=== PATIENT | male | born 1945 | race Hispanic/Latino ===

== ENCOUNTER 2018-01-19 09:02 | Inpatient (IN) | payer MEDICARE, OTHER ==
[2018-01-19 09:02] VITALS: BMI 28.8
[2018-01-19] MEDS ORDERED: Albuterol-Ipratrop 3 mg / 0.5 (3 ml) UD IH STA (09:42)
--- NOTE | 2018-01-19 09:43 | ED PDOC ---
Arrival/HPI - General Chief Complaint: Weakness/Neurological Deficit Time Seen by Provider: 01/19/18 09:20 Historian: Caregiver - Critical Care Critical Care Minutes: Other (35 minutes) - History of Present Illness Narrative History of Present Illness (Text): A 72 y/o M w/ h/o COPD, multiple sclerosis, and dementia, who is brought in by EMS and accompanied by trench pipe layer helper presenting to the emergency department for shortness of breath and body stiffness. Per his trench pipe layer helper, the patient has been unable to keep down food/liquids for the past 2 days. Four days ago, patient has remained stiff. He is unable to ambulate, not being able to get up without assistance and has had darker urine. Patient was seen by PMD, who instructed to wait for physical therapist to patient, however they are uncertain when therapist will see patient without medical clearance. The patient's PMD stated patient should be seen by a neurologist in the hospital. The trench pipe layer helper he received a call from patient's at approximately 02:30 that patient had began experiencing shortness of breath and wheezing with no alleviation in symptoms after 2 nebulizer treatments. Of note, patient was discharged from hospital last week. PMD: Dr. Jasmin Dominique Time/Duration: Prior to Arrival Symptom Course: Worsening Quality: Unable to Describe Severity Level: Moderate Activities at Onset: Emotional Upset Context: Home Past Medical History - Provider Review Nursing Documentation Reviewed: Yes - Travel History Have you recently traveled outside [place] w/in the past 3 mons?: No - Infectious Disease Hx of Infectious Diseases: None - Cardiac Hx Cardiac Disorders: No - Pulmonary Hx Chronic Obstructive Pulmonary Disease (COPD): Yes - Neurological Hx Neurological Disorder: Yes Hx Alzheimer's Disease: Yes Hx Multiple Sclerosis: Yes Other/Comment: multiple sclerosis - HEENT Hx HEENT Disorder: No - Renal Hx Renal Disorder: No - Endocrine/Metabolic Hx Endocrine Disorders: No - Hematological/Oncological Hx Blood Disorders: No - Integumentary Hx Dermatological Disorder: No - Musculoskeletal/Rheumatological Hx Musculoskeletal Disorders: No Hx Falls: No - Gastrointestinal Hx Gastrointestinal Disorders: No - Psychiatric Hx Psychophysiologic Disorder: No Hx Substance Use: No - Anesthesia Hx Anesthesia: No Hx Anesthesia Reactions: No Hx Malignant Hyperthermia: No Family/Social History - Physician Review Nursing Documentation Reviewed: Yes Family/Social History: No Known Family HX Smoking Status: Unknown If Ever Smoked Hx Alcohol Use: No Hx Substance Use: No Allergies/Home Meds Allergies/Adverse Reactions: Allergies No Known Allergies Allergy (Verified 01/19/18 19:14) Home Medications: Home Meds Medication Instructions Recorded Confirmed RX: Dalfampridine [Ampyra] 10 mg PO BID 02/12/16 01/19/18 RX: Donepezil [Aricept] 10 mg PO QPM 02/12/16 01/19/18 RX: Albuterol Sulfate [Proair Hfa] 0.09 mg IH PRN PRN 10/21/16 01/19/18 RX: Fingolimod HCl [Gilenya] 0.5 mg PO QAM 10/21/16 01/19/18 RX: Multivitamin/Iron/Folic Acid 1 tab PO DAILY 10/21/16 01/19/18 [Centrum Complete Multivit Tab] Albuterol/Ipratropium [Duoneb 3 1 vial IH PRN PRN 01/19/18 01/19/18 mg/0.5 mg (3 ml) UD] Review of Systems - Physician Review All systems were reviewed & negative as marked: Yes - Review of Systems Respiratory: SOB, Wheezing Gastrointestinal: Appetite Changes (patient has been unable to keep down food/liquids) Neurological: Other (patient is stiff, unable to ambulate or make any movement with experiencing pain.) Physical Exam Vital Signs Reviewed: Yes Vital Signs Temp Pulse Resp BP Pulse Ox 01/19/18 09:20 100 F H 96 H 18 102/57 L 90 L Temperature: Febrile Blood Pressure: Normal Pulse: Regular Respiratory Rate: Normal Appearance: Positive for: Uncomfortable (stiff, body contracted to the left- side.) Pain Distress: None Mental Status: Positive for: other (demented) - Systems Exam Respiratory/Chest: Present: Rales (bibasilar rales), Rhonchi (bilaterally). No: Wheezes Lower Extremity: Present: Other (LEs contracted towards the left side) Neurological: Present: GCS=15, CN II-XII Intact, Other (body adrienne towards the left-side). No: Speech Normal (patient non-verbal at this time.) Skin: Present: Warm, Dry, Normal Color. No: Rashes Psychiatric: Present: Alert, Other (demented) Medical Decision Making ED Course and Treatment: 01/19/18 09:44 Impression: 72 year old male with shortness of breath and body-stiffness. Physical exam shows patient is demented and non-verbal at this time; body contracted towards the left-side; rhonchi bilaterally with no wheezing, bibasilar rales. Plan: -- Chest CT -- CXR --CTH -- Labs -- Blood Culture -- Duoneb -- Venous Blood Gas -- Reassess and disposition Prior Visits: Notes and results from previous visits were reviewed. Patient was last seen in the emergency department on 01/05/2018 for shortness of breath. Patient was admitted for COPD exacerbation. Progress Notes: 01/19/18 10:49 Code sepsis called at this time. Zosyn and vancomycin ordered at this time. 01/19/18 10:[address] ordered[address] Spoke to Dr. Contreras(PCP) who requests patient to be started on Maxipime instead of Zosyn. Antibiotic changed. 01/19/18 11:15 VBG reviewed with CO2: 38 & pH: 7.41. Patient stable on non-rebreather. Pending CTH, CT a/p results. 01/19/18 12:[address] Gabriel(supervisor sintering plant) who requests patient to be on hi-mikaela nasal cannula on 650-60LPM. Patient admitted to ICU. - Lab Interpretations I have reviewed the lab results: Yes - RAD Interpretation Narrative RAD Interpretations (Text): 01/19/2018 12:[address] FINDINGS: HEMORRHAGE: No intracranial hemorrhage. BRAIN: No mass effect or edema. There is severe atrophy. Chronic microvascular changes in the periventricular white matter VENTRICLES: Unremarkable. No hydrocephalus. CALVARIUM: Unremarkable. PARANASAL SINUSES: Unremarkable as visualized. No significant inflammatory changes. MASTOID AIR CELLS: Unremarkable as visualized. No inflammatory changes. OTHER FINDINGS: None. IMPRESSION: Severe atrophy. No acute findings Dictator: Remberto Brantley MD 01/19/2018 13:[address] FINDINGS: LUNGS: There is a posterior right upper lobe lung mass adjacent to the spine measuring 2.6 x 4.3 cm. There is invasion of the T3 vertebral body and extension into the neural foramen with epidural invasion of the right side of the spinal canal. MEDIASTINUM: Unremarkable thoracic aorta. No aneurysm. Normal sized heart. Main pulmonary artery unremarkable. No vascular congestion. No lymphadenopathy. PLEURA: No pleural fluid. No pneumothorax. BONES: In addition to the bony involvement of the T3 vertebral body there is a lytic lesion in the right proximal 12th rib UPPER ABDOMEN: Grossly unremarkable. IMPRESSION: Right upper lobe lung mass with invasion of the spinal canal. There is also evidence of bony metastatic disease with a lytic lesion in the 12th rib proximally on the right. Findings consistent with metastatic lung carcinoma. Dictator: Remberto Brantley MD 01/19/2018 13:20 Chest X-ray IMPRESSION: No active disease. Stable findings compared to the prior chest radiograph. Findings apparent on recent CT referable right upper lobe however are not visible. Dictator: Gregory Pozo MD - Scribe Statement The provider has reviewed the documentation as recorded by the Scribe Roman Cruz Provider Scribe Attestation: All medical record entries made by the Scribe were at my direction and personally dictated by me. I have reviewed the chart and agree that the record accurately reflects my personal performance of the history, physical exam, medical decision making, and the department course for this patient. I have also personally directed, reviewed, and agree with the discharge instructions and disposition. Disposition/Present on Arrival - Present on Arrival Any Indicators Present on Arrival: No History of DVT/PE: No History of Uncontrolled Diabetes: No Urinary Catheter: No History of Decub. Ulcer: No History Surgical Site Infection Following: None - Disposition Have Diagnosis and Disposition been Completed?: Yes Diagnosis: COPD exacerbation Disposition: HOSPITALIZED Disposition Time: 12:16 Patient Plan: ICU Condition: FAIR
[2018-01-19 10:08] LABS: VENOUS BLOOD GAS PO2 69 mm/Hg (30-55); VENOUS BLOOD PH 7.38 (7.32-7.43)
[2018-01-19 10:10] LABS: URINE BILIRUBIN NEGATIVE (NEGATIVE); URINE BLOOD NEGATIVE (NEGATIVE); URINE GLUCOSE (UA) NEGATIVE (NEGATIVE); URINE LEUKOCYTE ESTERASE NEGATIVE Leu/uL (NEGATIVE); URINE PROTEIN 30 mg/dL (<30 mg/dL); URINE UROBILINOGEN 0.2 E.U./dL (<1 E.U./dL)
[2018-01-19 10:21] LABS: EOS % 0.2 % (1.5-5.0); GRAN # 15.73 (1.4-6.5); GRAN % 86.5 % (50.0-68.0); HEMOGLOBIN 13.6 g/dL (14.0-18.0); LYMPH # 1.4 (1.2-3.4); LYMPH % 7.5 % (22.0-35.0); MEAN CELL VOLUME 91.4 fl (80.0-105.0); MEAN CORPUSCULAR HEMOGLOBIN 30.6 pg (25.0-35.0); MEAN CORPUSCULAR HGB CONC 33.5 g/dl (31.0-37.0); MEAN PLATELET VOLUME 10.3 fl (7.0-11.0); MONO # 1.1 (0.1-0.6); MONO % 5.8 % (1.0-6.0); RBC 4.44 10^6/uL (3.5-6.1); RED CELL DISTRIBUTION WIDTH 14.3 % (11.5-14.5); WHITE BLOOD COUNT 18.2 10^3/ul (4.5-11.0)
[2018-01-19 10:23] LABS: URINE APPEARANCE SL CLOUDY (CLEAR); URINE COLOR YELLOW (YELLOW)
[2018-01-19 10:25] LABS: URINE BACTERIA TRACE (NEG); URINE RBC NEGATIVE /hpf (0-2); URINE WBC 0 - 2 /hpf (0-6)
[2018-01-19 10:26] LABS: BLOOD UREA NITROGEN 29 mg/dL (7-21); GFR NON-AFRICAN AMERICAN > 60
[2018-01-19 10:31] LABS: B-TYPE NATRIURETIC PEPTIDE 312 pg/mL (0-450); TROPONIN I < 0.01 ng/mL
[2018-01-19] MEDS ORDERED: Piperacill/Tazo 4.5gm in NS 4.5 GM/100 ML BAG IVPB STA (10:49)
[2018-01-19] MEDS ORDERED: Vancomycin 1gm in NS 250ml 1 GM/250 ML BAG IVPB STA ×2 (10:49→11:07)
[2018-01-19] MEDS ORDERED: Cefepime IV 2 gm in NS 2 GM/100 ML BAG IVPB STA (11:03)
[2018-01-19] MEDS ORDERED: Sodium Chloride 0.9% 1,000 ML IV STA ×2 (11:19→13:05)
[2018-01-19 11:25] LABS: ARTERIAL BLOOD GAS HCO3 24.1 mmol/L (21-28); ARTERIAL BLOOD GAS HEMOGLOBIN 13.5 g/dL (11.7-17.4); ARTERIAL BLOOD GAS O2 CAPACITY 18.7 mL/dl (16-24); ARTERIAL BLOOD GAS O2 CONTENT 18.5 ML/dl (15-23); ARTERIAL BLOOD GAS O2 SAT 99.1 % (95-98); ARTERIAL BLOOD GAS PCO2 38 mm/Hg (35-45); ARTERIAL BLOOD GAS PH 7.41 (7.35-7.45); ARTERIAL BLOOD GAS TCO2 25.3 mmol.L (22-28)
--- NOTE | 2018-01-19 12:43 | CT ---
Date of service: 01/19/2018 PROCEDURE: CT HEAD WITHOUT CONTRAST. HISTORY: change in ms COMPARISON: 02/12/2016 TECHNIQUE: Axial computed tomography images were obtained through the head/brain without intravenous contrast. Radiation dose: Total exam DLP = 1043 mGy-cm. This CT exam was performed using one or more of the following dose reduction techniques: Automated exposure control, adjustment of the mA and/or kV according to patient size, and/or use of iterative reconstruction technique. FINDINGS: HEMORRHAGE: No intracranial hemorrhage. BRAIN: No mass effect or edema. There is severe atrophy. Chronic microvascular changes in the periventricular white matter VENTRICLES: Unremarkable. No hydrocephalus. CALVARIUM: Unremarkable. PARANASAL SINUSES: Unremarkable as visualized. No significant inflammatory changes. MASTOID AIR CELLS: Unremarkable as visualized. No inflammatory changes. OTHER FINDINGS: None. IMPRESSION: Severe atrophy. No acute findings
[2018-01-19 12:54] LABS: VENOUS BLOOD GAS BASE EXCESS -0.6 mmol/L (0.0-2.0); VENOUS BLOOD GAS PO2 49 mm/Hg (30-55); VENOUS BLOOD PH 7.26 (7.32-7.43)
--- NOTE | 2018-01-19 13:02 | CT ---
Date of service: 01/19/2018 PROCEDURE: CT Chest without contrast HISTORY: cough w/ h/o asphixiation COMPARISON: None available. TECHNIQUE: Contiguous axial images were obtained through the chest without intravenous contrast enhancement. Sagittal and coronal reconstructions were performed. Radiation dose (DLP): 794 mGy-cm. This CT exam was performed using one or more of the following dose reduction techniques: Automated exposure control, adjustment of the mA and/or kV according to patient size, and/or use of iterative reconstruction technique. FINDINGS: LUNGS: There is a posterior right upper lobe lung mass adjacent to the spine measuring 2.6 x 4.3 cm. There is invasion of the T3 vertebral body and extension into the neural foramen with epidural invasion of the right side of the spinal canal. MEDIASTINUM: Unremarkable thoracic aorta. No aneurysm. Normal sized heart. Main pulmonary artery unremarkable. No vascular congestion. No lymphadenopathy. PLEURA: No pleural fluid. No pneumothorax. BONES: In addition to the bony involvement of the T3 vertebral body there is a lytic lesion in the right proximal 12th rib UPPER ABDOMEN: Grossly unremarkable. OTHER FINDINGS: The findings were discussed with Dr. Chu at 1 p.m. IMPRESSION: Right upper lobe lung mass with invasion of the spinal canal. There is also evidence of bony metastatic disease with a lytic lesion in the 12th rib proximally on the right. Findings consistent with metastatic lung carcinoma
--- NOTE | 2018-01-19 13:22 | RAD ---
Date of service: 01/19/2018 HISTORY: coughing w/ h/o asphixia COMPARISON: 01/05/2018. Single-view chest. January 19, 2018 CT thorax FINDINGS: LUNGS: No active pulmonary disease. PLEURA: No significant pleural effusion identified, no pneumothorax apparent. CARDIOVASCULAR: No radiographic findings to suggest acute or significant cardiovascular disease. OSSEOUS STRUCTURES: No significant abnormalities. VISUALIZED UPPER ABDOMEN: Normal. OTHER FINDINGS: None. IMPRESSION: No active disease. Stable findings compared to the prior chest radiograph. Findings apparent on recent CT referable right upper lobe however are not visible.
[2018-01-19] MEDS ORDERED: Dexamethasone 4 mg/1 ml IVP STA (13:45)
[2018-01-19] MEDS ORDERED: Vancomycin 1gm in NS 250ml 1 GM/250 ML BAG IVPB SCH (15:00)
--- NOTE | 2018-01-19 15:06 | PCM.SEPTIC ---
Sepsis Progress Note - Reassessment Type Date of Evaluation: 01/19/18 Time of Evaluation: 15:03 Reassessment Type: Non-invasive reassessment - Non Invasive Reassessment Were the most recent vital sign reviewed: Yes Vital Sign (Latest): Temp Pulse Resp BP Pulse Ox 99.8 F H 76 18 132/66 92 L 01/19/18 14:05 01/19/18 14:05 01/19/18 14:05 01/19/18 14:05 01/19/18 14:05 Cardiovascular: Yes: Regular Rate, Rhythm Respiratory: Yes: Normal Breath Sounds Capillary Refill: Normal (Less than 2 sec) Skin: Normal Color, Warm, Dry
[2018-01-19] MEDS ORDERED: Insulin Reg-MEDIUM-Coverage SC SCH (15:30)
--- NOTE | 2018-01-19 16:36 | CARD ---
APPROVED REPORT Date of service: 01/19/2018 EKG Measurement Heart [id number] <Conclusion> Sinus rhythm with marked sinus arrhythmia Left axis deviation Inferior infarct, age undetermined Abnormal ECG
--- NOTE | 2018-01-19 17:19 | HP ---
DATE OF EXAM: 01/19/2018 HISTORY OF PRESENT ILLNESS: This 72-year-old male was examined in ICU bed 5 in [facility] ICU on afternoon, 01/19/2018. His case was reviewed in detail with family, the patient at bedside, ICU nursing, and Dr. Marcello Sky, line maintainer section. The patient was sent to the [facility] ER earlier today when his noted respiratory distress at home. His past medical history is significant for advanced multiple sclerosis, dementia, COPD and prostate cancer. The patient was having difficulty with shortness of breath and taking oral food and fluids for the past 48 hours and approximately 4 days ago was having difficulty with ambulation at home. The patient was advised and family was advised to come to the ER for further evaluation; however, opted to keep the patient at home while awaiting home physical therapy eval. Today, when the patient was noted to be short of breath and wheezing, his family called for ambulance to transport to the ER where he was complaining of pain with movement of his body, backache, in the absence of any obvious rash or orthopedic injury. The patient on chest x-ray had no remarkable findings. However, on the CT of his chest which was reviewed, done without contrast, he was noted to have a posterior right upper lung mass adjacent to his spine measuring 2.6 x 4.3 cm with invasion of the T3 vertebral body and extension into the neuroforamen with epidural invasion of the right side of his spinal canal. On inspection of his mediastinum on CT, it was unremarkable. There was no aneurysm. His heart was normal in size. There was no vascular congestion and no lymphadenopathy appreciated. The patient is admitted to ICU for pulmonary and respiratory observation and will be scheduled for a CT-guided biopsy of this newly noted lung mass on CT of chest done today. REVIEW OF SYSTEMS: CONSTITUTIONAL: There were no reports of fever or chills. HEENT: Head review: No change in mentation, no headache. No knowledge of stroke. Eyes review: No change in visual acuity. Ears review: No hearing loss. Throat review: No swallowing difficulty. NECK: No stiffness. CARDIAC: No chest pain, no palpitation. PULMONARY: He had cough. No hemoptysis. He did have expiratory wheezing and rhonchi. ABDOMEN: No hematemesis. No melena. : No dysuria. SKIN: No rash. VASCULAR: No reports of claudication. PSYCHOLOGIC: He has chronic dementia. NEUROLOGIC: Advanced multiple sclerosis. ALLERGIES: HE HAS NO KNOWN ALLERGIES TO MEDICATION. OUTPATIENT MEDICATIONS: Included Duo nebulizer inhalational therapy, multivitamin, Gilenya, Aricept, and p.r.n., ProAir. FAMILY HISTORY: Noncontributory. SOCIAL HISTORY: According to his , he has a 90 pack-year history of cigarette smoking. He last smoked in 1998. He is a social drinker, non IV drug misuser, retired tailor. PHYSICAL EXAMINATION: VITAL SIGNS: At present, he was in a normal sinus rhythm on the cardiac technologist with a temperature of 99.8, respirations 18, pulse 76, and blood pressure 132/66 with a pulse ox of 92% on nasal O2. HEENT: Head: Normocephalic, atraumatic. Eyes: No icterus. Ears: Clear. Throat: Noninjected. NECK: Supple. HEART: Regular, S1 and S2. LUNGS: Occasional rhonchi and expiratory wheezing that clear with coughing. ABDOMEN: Soft and nontender. No palpable organomegaly. No rebound, no guarding, no tenderness. EXTREMITIES: No edema. SKIN: Without rash. NEUROLOGIC: He has marked weakness in both lower extremities. He is able to move his right and left upper extremities voluntarily. He has sensory intact. VASCULAR: Legs warm to touch. PSYCHOLOGIC: Alert. LABORATORY DATA: White count 18,200, hemoglobin 13.6, hematocrit 40.6, and platelets 169,000. Blood gas pH 7.41, pCO2 of 38, pO2 of 111, bicarb 24 on 100% FiO2. Chemistry: Sodium 141, K 3.7, chloride 106, bicarb 26. BUN 29, creatinine 0.8. Random blood sugar 141. Lactic acid level 1.8, normal. Calcium 9. Magnesium 2. Troponin less than 0.01. BNP 312. Urinalysis showed trace bacteria, specific gravity 1.030, 30 mg/dL of protein, no red blood cell, 0 to 2 rbc. Chest x-ray was reviewed. It showed no active pulmonary disease, no infiltrate, no effusion, no pneumothorax, no congestive heart failure. Head CT was reviewed. It showed severe atrophy, no obvious stroke. No hemorrhage, no infarct, no acute findings. CT of the chest as outlined in HPI. IMPRESSION: A 72-year-old male with [id number] chronic obstructive pulmonary disease, now with newly noted right upper lung posterior lung mass invading into T3 vertebral body causing neurological findings of lower extremity weakness and also comorbidities of leukocytosis, hypoxemia, mild clinical dehydration, hyperglycemia, history of multiple sclerosis, degenerative arthritis, organic brain syndrome, and dementia. PLAN: The plans at present are to maintain this patient in critical care where he will have close monitoring of his respiratory status. He remains a full code and is to be intubated if any respiratory embarrassment should occur. He is scheduled to receive Aricept 10 mg p.o. at bedtime, Duo nebulizer inhalational therapy every 6 hours, heparin 5000 units subcu every 8 hours, regular R medium insulin coverage before meals and at bedtime, Maxipime 1 g IV every 8 hours, vancomycin 1 g IV every 12 hours, Protonix 40 mg IV daily, Solu-Medrol 60 mg IV every 8 hours. The patient is scheduled for blood, urine, and MRSA screens. A procalcitonin serum level has been ordered. He is ordered to have high-flow nasal O2 and consultations with Dr. Dominick Hernandez from Oncology, Dr. Kristi Murrell from Radiation Oncology, Dr. Miguel De La Cruz from Interventional Radiology, and Dr. Martin Pedroza from neurosurgery have been ordered. All of the above was discussed in detail with the patient's , Silvina Be and Dr. Sky. All of the above was reviewed in detail with them. Greater than 75 minutes was spent in the care of this patient today. All questions were answered. Jasmin Dominique MD MTDMartita
[2018-01-19] MEDS ORDERED: Influenza Vaccine 60 mcg/0.5 mL SYR (4YR UP) IM ONE (19:45)
[2018-01-19] MEDS ORDERED: Pneumococcal 23-Valent Vaccine IM ONE (19:45)
[2018-01-19] MEDS: Albuterol-Ipratrop 3 mg / 0.5 (3 ml) UD IH SCH (20:03)
[2018-01-19 20:18] LABS: VENOUS BLOOD GAS BASE EXCESS -0.8 mmol/L (0.0-2.0); VENOUS BLOOD GAS PO2 86 mm/Hg (30-55); VENOUS BLOOD PH 7.34 (7.32-7.43)
--- NOTE | 2018-01-19 21:30 | CON ---
DATE: 01/19/2018 HISTORY OF PRESENT ILLNESS: The patient is seen and examined at bedside. He is 72-year-old gentleman with history of dementia, multiple sclerosis, COPD who presented to [facility] emergency room for shortness of breath and body stiffness. Of note, the patient was unable to walk night prior and that was acute change in his overall status. He was also reported being very stiff. The patient started to experience shortness of breath and wheezing around 02:30 a.m. and around 6 in the morning, the patient received two albuterol nebulizers without any relief whatsoever. No fever, no chills, no sweats, no nausea, no vomiting, no diarrhea, no constipation. In the emergency room, CT chest was done, which revealed right upper lobe mass intruding into the spinal canal and few pulmonary nodules suspicious for metastatic lung adenocarcinoma. The patient was also found to be hypoxemic, requiring 70% of FiO2 to maintain oxygen saturation more than 92%. PAST MEDICAL HISTORY: Dementia, multiple sclerosis, COPD. ALLERGIES: NKDA. MEDICATION AT HOME: DuoNeb, Gilenya, Aricept, Ampyra, multivitamin, albuterol. FAMILY HISTORY: Noncontributory. SOCIAL HISTORY: No alcohol or illicit drug abuse. No tobacco smoking. REVIEW OF SYSTEMS: Review of 12-organ system other than mentioned in history of present illness is negative. PHYSICAL EXAMINATION: VITAL SIGNS: Temperature 99.8, heart rate 76, blood pressure 132/66, respiratory rate 18, oxygen saturation 92% on high-flow with 75% FiO2 and oxygen flow rate 50 liters per minute. ENT: Head and neck: Atraumatic. LUNGS: Few wheezes bilaterally. HEART: Regular rate and rhythm. S1, S2 normal. ABDOMEN: Soft, nontender, nondistended. MUSCULOSKELETAL: Contractures in the upper and lower extremities. SKIN: Moist. PSYCH: The patient is poorly communicative. LABORATORY DATA: WBC 18.2, hemoglobin 13.6, platelet count 169. Sodium 141, potassium 3.7, chloride 106, carbon dioxide 26, BUN 29, creatinine 0.8, lactic acid 1.8, glucose 141. Troponin less than 0.01, calcium 9. ABG showed 7.41/38/111 on 100% FiO2. Lactic acid 3.5 up from 2.3. Urine negative for leukocyte esterase and nitrites. Head CT showed severe atrophy, but no acute intracranial pathology. Chest CT showed right upper lobe lung mass with invasion of the spinal canal. There is also evidence of bony metastatic disease with a lytic lesion in the 12th rib approximally on the right. Findings consistent with metastatic lung adenocarcinoma. No substantial lymphadenopathy. ASSESSMENT AND PLAN: This is 72-year-old gentleman with hypoxemic respiratory failure requiring high FiO2 supplementation who was found to have chest imaging highly suspicious for metastatic lung adenocarcinoma with biggest concern being right upper lobe mass intruding into the spinal canal, which may potentially explain his acute neurological deficit. There is a questionable ground-glass tree-in-bud nodules in the left lower lobe intermingled with areas of questionable consolidation, which however per se unlikely to explain hypoxemic respiratory failure. At present time, we will proceed with stat Decadron and continuation with IV corticosteroids. We will get Hematology/Oncology service on board. Neurosurgery on board and get IR to obtain tissue specimen. Once diagnosis of malignancy is confirmed, we will get in touch with radiation oncologist in consideration of radiating a mass impinging into the spinal canal, while waiting for insight from neurosurgical service as well. We will continue with antibiotics. Conservative fluid management. Inhaled corticosteroids and bronchodilators. We will get echocardiogram, ProBNP, troponin x3. Accu-Chek every 4 hours. We will continue with deep vein thrombosis, gastrointestinal prophylaxis. Low threshold for intubation. ICU admission. ccm time 40 min Marcello Sky MD AMJO
[2018-01-19] MEDS: Vancomycin 1gm in NS 250ml 1 GM/250 ML BAG IVPB SCH (21:36)
[2018-01-19] MEDS: Insulin Reg-MEDIUM-Coverage SC SCH (21:39)
[2018-01-19] MEDS: Cefepime 1gm in NS 100ml 1 GM/100 ML BAG IVPB SCH (22:10)
[2018-01-20] MEDS: Insulin Reg-MEDIUM-Coverage SC SCH ×6 (02:00→21:55)
[2018-01-20] MEDS: Albuterol-Ipratrop 3 mg / 0.5 (3 ml) UD IH SCH (03:24)
[2018-01-20] MEDS: Sodium Chloride 0.9% 1,000 ML IV SCH ×3 (04:45→22:00)
[2018-01-20] MEDS: Cefepime 1gm in NS 100ml 1 GM/100 ML BAG IVPB SCH ×3 (06:41→23:00)
[2018-01-20 07:27] LABS: HEMOGLOBIN 12.6 g/dL (14.0-18.0); MEAN CELL VOLUME 91.9 fl (80.0-105.0); MEAN CORPUSCULAR HEMOGLOBIN 30.9 pg (25.0-35.0); MEAN CORPUSCULAR HGB CONC 33.6 g/dl (31.0-37.0); RBC 4.08 10^6/uL (3.5-6.1); RED CELL DISTRIBUTION WIDTH 14.2 % (11.5-14.5); WHITE BLOOD COUNT 13.5 10^3/ul (4.5-11.0)
[2018-01-20 07:38] LABS: ALBUMIN 2.7 g/dL (3.0-4.8); ALT/SGPT 38 U/L (7-56); AST/SGOT 24 U/L (17-59); BLOOD UREA NITROGEN 30 mg/dL (7-21); CALCIUM 8.4 mg/dL (8.4-10.5); GFR NON-AFRICAN AMERICAN > 60
--- NOTE | 2018-01-20 08:55 | CON ---
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 The patient has an underlying multiple sclerosis and dementia, was admitted for pains as well as shortness of breath, possible sepsis. His CAT scan shows right upper lobe mass, 4.3 cm that is invading locally to T3 vertebra and he also has a twelfth rib lytic lesion on his CAT scan. The patient is not very verbal. He is essentially better in the ICU. He is lying flat. He is alert, but does not really converse. PHYSICAL EXAMINATION: SKIN: No petechiae, no bruises. HEENT: Anicteric. NODES: None palpable in the axillary, cervical, supraclavicular or inguinal regions. LUNGS: Show some diffuse rhonchi, scattered wheeze. HEART: S1 and S2. ABDOMEN: Shows no liver, no spleen, no tenderness. EXTREMITIES: No edema. COSMETOLOGIST APPRENTICE: Downgoing bilaterally plantars. ASSESSMENT: At this point, he has radiologic diagnosis of lung cancer metastatic to the bones and being treated for sepsis. I agree with the steroids to try to protect the spinal cord. He is scheduled to get a CAT scan guided biopsy. At that point, once we have a diagnosis of cancer, he can be treated with radiation therapy. Then, we would await final reports on the pathology. Hopefully, we will have enough to send for markers for for epidermal growth factor receptor, reactive oxygen species and anaplastic lymphoma kinase markers in order to see if it is possible to treat him with some of the new agents. In any event, at first he will need radiation therapy. Dominick Hernandez MD
--- NOTE | 2018-01-20 09:59 | CP.CCUPN ---
Addendum entered and electronically signed by Yi Snyder DO 01/20/18 12:37: Heme/Onc: As per Dr. Hernandez, patient will have CT guided biopsy of likely primary lung lesion. EGFR, anaplastic lymphoma kinase markers, and ROS species to be collected to guide therapy. As per Dr. Murrell, patient has had paralysis for 5 days and surgical decompression would not help the patient at this time. He will be referred for palliative radiation. Original Note: <Yi Snyder - Last Filed: 01/20/18 11:55> CCU Subjective - Physician Review Subjective (Free Text): Yi Snyder, PGY-1, CCU Progress Note for Dr. Doan Patient seen and examined at bedside. Patient is AAOx1. Patient is unable to respond coherently to questions which is his baseline. 12-point ROS was unattainable due to patient's mental status. Critical Care Time Spent (in minutes): 60 CCU Objective - Vital Signs / Intake & Output Vital Signs (Last 4 hours): Vital Signs Pulse Resp 01/20/18 07:47 20 01/20/18 06:00 64 Intake and Output (Last 8hrs): Intake & Output 01/19/18 01/20/18 01/20/18 22:59 06:59 14:59 Intake Total 2300 1450 Output Total 380 Balance 2300 1070 Weight 190 lb 184 lb 9.6 oz Intake: IV 2300 1450 Right Antecubital 2300 1450 Output: Urine 380 Urine, Voided 380 Stool 0 Other: Voiding Method Incontinent - Physical Exam Head: Positive for: Atraumatic, Normocephalic Pupils: Positive for: PERRL Extroacular Muscles: Positive for: EOMI Conjunctiva: Positive for: Normal Respiratory/Chest: Positive for: Rales (bibasilar rales), Rhonchi (bilaterally). Negative for: Wheezes Cardiovascular: Positive for: Regular Rate and Rhythm, Murmurs Abdomen: Positive for: Normal Bowel Sounds. Negative for: Tenderness, Distention Upper Extremity: Positive for: Normal Inspection, NORMAL PULSES Lower Extremity: Positive for: Normal Inspection, NORMAL PULSES Neurological: Positive for: CN II-XII Intact, Other (body adrienne towards the left-side). Negative for: GCS=15 (14), Speech Normal (patient non-verbal at this time.) Skin: Positive for: Warm, Dry, Normal Color. Negative for: Rashes Psychiatric: Positive for: Other (demented). Negative for: Alert, Oriented x 3 - Medications Active Medications: Active Medications Generic Name Dose Route Start Last Admin Trade Name Freq PRN Reason Stop Dose Admin Donepezil HCl 10 mg 01/19/18 22:00 01/19/18 22:11 Aricept PO Not Given HS LOWELL Heparin Sodium (Porcine) 5,000 units 01/19/18 15:15 01/20/18 07:30 Heparin SC Not Given Q8H LOWELL Protocol Cefepime HCl 1 gm in 100 mls @ 100 mls/hr 01/19/18 22:00 01/20/18 06:41 Maxipime 1gm IVPB 100 mls/hr Q8 LOWELL Administration Protocol Vancomycin HCl 1 gm in 250 mls @ 167 mls/hr 01/19/18 22:00 01/19/18 21:36 Vancomycin 1gm IVPB 167 mls/hr Q12H LOWELL Administration Protocol Sodium Chloride 1,000 mls @ 100 mls/hr 01/19/18 15:45 01/20/18 04:45 Sodium Chloride 0.9% IV 100 mls/hr .Q10H LOWELL Administration Insulin Human Regular 0 units 01/19/18 17:33 01/20/18 06:42 Humulin R Med SC Not Given Q4H LOWELL Protocol Methylprednisolone 60 mg 01/19/18 15:00 01/20/18 06:40 Solu-Medrol IVP 60 mg Q8H LOWELL Administration Pantoprazole Sodium 40 mg 01/19/18 15:15 01/19/18 17:30 Protonix Inj IVP 40 mg DAILY LOWELL Administration - Patient Studies Lab Studies: Lab Studies 01/20/18 01/20/18 01/19/18 Range/Units 07:10 07:10 20:12 WBC 13.5 H D (4.5-11.0) 10^3/ul RBC 4.08 (3.5-6.1) 10^6/uL Hgb 12.6 L (14.0-18.0) g/dL Hct 37.5 L (42.0-52.0) % MCV 91.9 (80.0-105.0) fl MCH 30.9 (25.0-35.0) pg MCHC 33.6 (31.0-37.0) g/dl RDW 14.2 (11.5-14.5) % Plt Count 151 (120.0-450.0) 10^3/uL MPV 10.0 (7.0-11.0) fl Gran % (50.0-68.0) % Lymph % (Auto) (22.0-35.0) % Anson % (Auto) (1.0-6.0) % Eos % (Auto) (1.5-5.0) % Baso % (Auto) (0.0-3.0) % Gran # (1.4-6.5) Lymph # (Auto) (1.2-3.4) Anson # (Auto) (0.1-0.6) Eos # (Auto) (0.0-0.7) Baso # (Auto) (0.0-2.0) K/mm3 pCO2 (35-45) mm/Hg pO2 86 H (30-55) mm/Hg HCO3 (21-28) mmol/L ABG pH (7.35-7.45) ABG Total CO2 (22-28) mmol.L ABG O2 Saturation (95-98) % ABG O2 Content (15-23) ML/dl ABG Base Excess (-2.0-3.0) mmol/L ABG Hemoglobin (11.7-17.4) g/dL ABG Carboxyhemoglobin (0.5-1.5) % POC ABG HHb (Measured) (0-5) % ABG Methemoglobin (0.0-3.0) % ABG O2 Capacity (16-24) mL/dl VBG pH 7.34 (7.32-7.43) VBG pCO2 47.0 (40-60) VBG HCO3 25.4 (21-28) mmol/l VBG Total CO2 26.8 (22-28) mmol.L VBG O2 Sat (Calc) 97.6 H (40-65) % VBG Base Excess -0.8 L (0.0-2.0) mmol/L VBG Potassium 4.1 (3.6-5.2) mmol/L Hgb O2 Saturation (95.0-98.0) % Sodium 146 141.0 (132-148) mmol/L Chloride 111 H 113.0 H (98-107) mmol/L Glucose 173 H (75-110) mg/dl Lactate 1.7 (0.7-2.1) mmol/L FiO2 21.0 % Potassium 4.1 (3.6-5.0) mmol/L Carbon Dioxide 25 (21-33) mmol/L Anion Gap 14 (10-20) BUN 30 H (7-21) mg/dL Creatinine 0.7 L (0.8-1.5) mg/dl Est GFR ( Amer) > 60 Est GFR (Non-Af Amer) > 60 POC Glucose (mg/dL) (65-110) mg/dL Random Glucose 136 H (70-110) mg/dL Lactic Acid (0.7-2.1) mmol/L Calcium 8.4 (8.4-10.5) mg/dL Magnesium (1.7-2.2) mg/dL Total Bilirubin 0.6 (0.2-1.3) mg/dL AST 24 (17-59) U/L ALT 38 (7-56) U/L Alkaline Phosphatase 91 (38-126) U/L Troponin I ng/mL NT-Pro-B Natriuret Pep (0-450) pg/mL Total Protein 5.5 L (5.8-8.3) g/dL Albumin 2.7 L (3.0-4.8) g/dL Globulin 2.8 gm/dL Albumin/Globulin Ratio 1.0 L (1.1-1.8) Venous Blood Potassium 4.1 (3.6-5.2) mmol/L Urine Color (YELLOW) Urine Appearance (CLEAR) Urine pH (4.7-8.0) Ur Specific [place] (1.005-1.035) Urine Protein (<30 mg/dL) mg/dL Urine Glucose (UA) (NEGATIVE) mg/dL Urine Ketones (NEGATIVE) mg/dL Urine Blood (NEGATIVE) Urine Nitrate (NEGATIVE) Urine Bilirubin (NEGATIVE) Urine Urobilinogen (<1 E.U./dL) E.U./dL Ur Leukocyte Esterase (NEGATIVE) Imer/uL Urine RBC (0-2) /hpf Urine WBC (0-6) /hpf Urine Bacteria (NEG) 01/19/18 01/19/1801/19/18 Range/Units 16:21 13:40 12:45 WBC (4.5-11.0) 10^3/ul RBC (3.5-6.1) 10^6/uL Hgb (14.0-18.0) g/dL Hct (42.0-52.0) % MCV (80.0-105.0) fl MCH (25.0-35.0) pg MCHC (31.0-37.0) g/dl RDW (11.5-14.5) % Plt Count (120.0-450.0) 10^3/uL MPV (7.0-11.0) fl Gran % (50.0-68.0) % Lymph % (Auto) (22.0-35.0) % Anson % (Auto) (1.0-6.0) % Eos % (Auto) (1.5-5.0) % Baso % (Auto) (0.0-3.0) % Gran # (1.4-6.5) Lymph # (Auto) (1.2-3.4) Anson # (Auto) (0.1-0.6) Eos # (Auto) (0.0-0.7) Baso # (Auto) (0.0-2.0) K/mm3 pCO2 (35-45) mm/Hg pO2 49 (30-55) mm/Hg HCO3 (21-28) mmol/L ABG pH (7.35-7.45) ABG Total CO2 (22-28) mmol.L ABG O2 Saturation (95-98) % ABG O2 Content (15-23) ML/dl ABG Base Excess (-2.0-3.0) mmol/L ABG Hemoglobin (11.7-17.4) g/dL ABG Carboxyhemoglobin (0.5-1.5) % POC ABG HHb (Measured) (0-5) % ABG Methemoglobin (0.0-3.0) % ABG O2 Capacity (16-24) mL/dl VBG pH 7.26 L (7.32-7.43) VBG pCO2 62.0 H (40-60) VBG HCO3 27.8 (21-28) mmol/l VBG Total CO2 29.7 H (22-28) mmol.L VBG O2 Sat (Calc) 83.4 H (40-65) % VBG Base Excess -0.6 L (0.0-2.0) mmol/L VBG Potassium 4.2 (3.6-5.2) mmol/L Hgb O2 Saturation (95.0-98.0) % Sodium 142.0 (132-148) mmol/L Chloride 110.0 H (98-107) mmol/L Glucose 151 H (75-110) mg/dl Lactate 3.5 H (0.7-2.1) mmol/L FiO2 21.0 % Potassium (3.6-5.0) mmol/L Carbon Dioxide (21-33) mmol/L Anion Gap (10-20) BUN (7-21) mg/dL Creatinine (0.8-1.5) mg/dl Est GFR ( Amer) Est GFR (Non-Af Amer) POC Glucose (mg/dL) 166 H (65-110) mg/dL Random Glucose (70-110) mg/dL Lactic Acid 1.8 (0.7-2.1) mmol/L Calcium (8.4-10.5) mg/dL Magnesium (1.7-2.2) mg/dL Total Bilirubin (0.2-1.3) mg/dL AST (17-59) U/L ALT (7-56) U/L Alkaline Phosphatase (38-126) U/L Troponin I ng/mL NT-Pro-B Natriuret Pep (0-450) pg/mL Total Protein (5.8-8.3) g/dL Albumin (3.0-4.8) g/dL Globulin gm/dL Albumin/Globulin Ratio (1.1-1.8) Venous Blood Potassium 4.2 (3.6-5.2) mmol/L Urine Color (YELLOW) Urine Appearance (CLEAR) Urine pH (4.7-8.0) Ur Specific [place] (1.005-1.035) Urine Protein (<30 mg/dL) mg/dL Urine Glucose (UA) (NEGATIVE) mg/dL Urine Ketones (NEGATIVE) mg/dL Urine Blood (NEGATIVE) Urine Nitrate (NEGATIVE) Urine Bilirubin (NEGATIVE) Urine Urobilinogen (<1 E.U./dL) E.U./dL Ur Leukocyte Esterase (NEGATIVE) Imer/uL Urine RBC (0-2) /hpf Urine WBC (0-6) /hpf Urine Bacteria (NEG) 01/19/18 01/19/18 01/19/18 Range/Units 11:20 09:40 09:40 WBC (4.5-11.0) 10^3/ul RBC (3.5-6.1) 10^6/uL Hgb (14.0-18.0) g/dL Hct (42.0-52.0) % MCV (80.0-105.0) fl MCH (25.0-35.0) pg MCHC (31.0-37.0) g/dl RDW (11.5-14.5) % Plt Count (120.0-450.0) 10^3/uL MPV (7.0-11.0) fl Gran % (50.0-68.0) % Lymph % (Auto) (22.0-35.0) % Anson % (Auto) (1.0-6.0) % Eos % (Auto) (1.5-5.0) % Baso % (Auto) (0.0-3.0) % Gran # (1.4-6.5) Lymph # (Auto) (1.2-3.4) Anson # (Auto) (0.1-0.6) Eos # (Auto) (0.0-0.7) Baso # (Auto) (0.0-2.0) K/mm3 pCO2 38 (35-45) mm/Hg pO2 111.0 H (30-55) mm/Hg HCO3 24.1 (21-28) mmol/L ABG pH 7.41 (7.35-7.45) ABG Total CO2 25.3 (22-28) mmol.L ABG O2 Saturation 99.1 H (95-98) % ABG O2 Content 18.5 (15-23) ML/dl ABG Base Excess -0.3 (-2.0-3.0) mmol/L ABG Hemoglobin 13.5 (11.7-17.4) g/dL ABG Carboxyhemoglobin 1.7 H (0.5-1.5) % POC ABG HHb (Measured) 0.9 (0-5) % ABG Methemoglobin 0.7 (0.0-3.0) % ABG O2 Capacity 18.7 (16-24) mL/dl VBG pH (7.32-7.43) VBG pCO2 (40-60) VBG HCO3 (21-28) mmol/l VBG Total CO2 (22-28) mmol.L VBG O2 Sat (Calc) (40-65) % VBG Base Excess (0.0-2.0) mmol/L VBG Potassium (3.6-5.2) mmol/L Hgb O2 Saturation 96.7 (95.0-98.0) % Sodium 141 (132-148) mmol/L Chloride 106 (98-107) mmol/L Glucose (75-110) mg/dl Lactate (0.7-2.1) mmol/L FiO2 100.0 % Potassium 3.7 (3.6-5.0) mmol/L Carbon Dioxide 26 (21-33) mmol/L Anion Gap 13 (10-20) BUN 29 H (7-21) mg/dL Creatinine 0.8 (0.8-1.5) mg/dl Est GFR ( Amer) > 60 Est GFR (Non-Af Amer) > 60 POC Glucose (mg/dL) (65-110) mg/dL Random Glucose 141 H (70-110) mg/dL Lactic Acid (0.7-2.1) mmol/L Calcium 9.0 (8.4-10.5) mg/dL Magnesium 2.0 (1.7-2.2) mg/dL Total Bilirubin (0.2-1.3) mg/dL AST (17-59) U/L ALT (7-56) U/L Alkaline Phosphatase (38-126) U/L Troponin I < 0.01 ng/mL NT-Pro-B Natriuret Pep 312 (0-450) pg/mL Total Protein (5.8-8.3) g/dL Albumin (3.0-4.8) g/dL Globulin gm/dL Albumin/Globulin Ratio (1.1-1.8) Venous Blood Potassium (3.6-5.2) mmol/L Urine Color Yellow (YELLOW) Urine Appearance Sl cloudy (CLEAR) Urine pH 6.0 (4.7-8.0) Ur Specific [place] >= 1.030 (1.005-1.035) Urine Protein 30 H (<30 mg/dL) mg/dL Urine Glucose (UA) Negative (NEGATIVE) mg/dL Urine Ketones 15 H (NEGATIVE) mg/dL Urine Blood Negative (NEGATIVE) Urine Nitrate Negative (NEGATIVE) Urine Bilirubin Negative (NEGATIVE) Urine Urobilinogen 0.2 (<1 E.U./dL) E.U./dL Ur Leukocyte Esterase Negative (NEGATIVE) Imer/uL Urine RBC Negative (0-2) /hpf Urine WBC 0 - 2 (0-6) /hpf Urine Bacteria Trace (NEG) 01/19/18 01/19/18 Range/Units 09:40 09:40 WBC 18.2 H D (4.5-11.0) 10^3/ul RBC 4.44 (3.5-6.1) 10^6/uL Hgb 13.6 L (14.0-18.0) g/dL Hct 40.6 L (42.0-52.0) % MCV 91.4 (80.0-105.0) fl MCH 30.6 (25.0-35.0) pg MCHC 33.5 (31.0-37.0) g/dl RDW 14.3 (11.5-14.5) % Plt Count 169 (120.0-450.0) 10^3/uL MPV 10.3 (7.0-11.0) fl Gran % 86.5 H (50.0-68.0) % Lymph % (Auto) 7.5 L (22.0-35.0) % Anson % (Auto) 5.8 (1.0-6.0) % Eos % (Auto) 0.2 L (1.5-5.0) % Baso % (Auto) 0.0 (0.0-3.0) % Gran # 15.73 H (1.4-6.5) Lymph # (Auto) 1.4 (1.2-3.4) Anson # (Auto) 1.1 H (0.1-0.6) Eos # (Auto) 0.0 (0.0-0.7) Baso # (Auto) 0.00 (0.0-2.0) K/mm3 pCO2 (35-45) mm/Hg pO2 69 H (30-55) mm/Hg HCO3 (21-28) mmol/L ABG pH (7.35-7.45) ABG Total CO2 (22-28) mmol.L ABG O2 Saturation (95-98) % ABG O2 Content (15-23) ML/dl ABG Base Excess (-2.0-3.0) mmol/L ABG Hemoglobin (11.7-17.4) g/dL ABG Carboxyhemoglobin (0.5-1.5) % POC ABG HHb (Measured) (0-5) % ABG Methemoglobin (0.0-3.0) % ABG O2 Capacity (16-24) mL/dl VBG pH 7.38 (7.32-7.43) VBG pCO2 47.0 (40-60) VBG HCO3 27.8 (21-28) mmol/l VBG Total CO2 29.2 H (22-28) mmol.L VBG O2 Sat (Calc) 96.0 H (40-65) % VBG Base Excess 2.0 (0.0-2.0) mmol/L VBG Potassium 3.8 (3.6-5.2) mmol/L Hgb O2 Saturation (95.0-98.0) % Sodium 141.0 (132-148) mmol/L Chloride 108.0 H (98-107) mmol/L Glucose 142 H (75-110) mg/dl Lactate 2.3 H (0.7-2.1) mmol/L FiO2 21.0 % Potassium (3.6-5.0) mmol/L Carbon Dioxide (21-33) mmol/L Anion Gap (10-20) BUN (7-21) mg/dL Creatinine (0.8-1.5) mg/dl Est GFR ( Amer) Est GFR (Non-Af Amer) POC Glucose (mg/dL) (65-110) mg/dL Random Glucose (70-110) mg/dL Lactic Acid (0.7-2.1) mmol/L Calcium (8.4-10.5) mg/dL Magnesium (1.7-2.2) mg/dL Total Bilirubin (0.2-1.3) mg/dL AST (17-59) U/L ALT (7-56) U/L Alkaline Phosphatase (38-126) U/L Troponin I ng/mL NT-Pro-B Natriuret Pep (0-450) pg/mL Total Protein (5.8-8.3) g/dL Albumin (3.0-4.8) g/dL Globulin gm/dL Albumin/Globulin Ratio (1.1-1.8) Venous Blood Potassium 3.8 (3.6-5.2) mmol/L Urine Color (YELLOW) Urine Appearance (CLEAR) Urine pH (4.7-8.0) Ur Specific [place] (1.005-1.035) Urine Protein (<30 mg/dL) mg/dL Urine Glucose (UA) (NEGATIVE) mg/dL Urine Ketones (NEGATIVE) mg/dL Urine Blood (NEGATIVE) Urine Nitrate (NEGATIVE) Urine Bilirubin (NEGATIVE) Urine Urobilinogen (<1 E.U./dL) E.U./dL Ur Leukocyte Esterase (NEGATIVE) Imer/uL Urine RBC (0-2) /hpf Urine WBC (0-6) /hpf Urine Bacteria (NEG) Laboratory Results - last 24 hr 01/19/18 01/19/18 01/19/18 09:40 09:40 09:40 WBC 18.2 H D RBC 4.44 Hgb 13.6 L Hct 40.6 L MCV 91.4 MCH 30.6 MCHC 33.5 RDW 14.3 Plt Count 169 MPV 10.3 Gran % 86.5 H Lymph % (Auto) 7.5 L Anson % (Auto) 5.8 Eos % (Auto) 0.2 L Baso % (Auto) 0.0 Gran # 15.73 H Lymph # (Auto) 1.4 Anson # (Auto) 1.1 H Eos # (Auto) 0.0 Baso # (Auto) 0.00 pCO2 pO2 69 H HCO3 ABG pH ABG Total CO2 ABG O2 Saturation ABG O2 Content ABG Base Excess ABG Hemoglobin ABG Carboxyhemoglobin POC ABG HHb (Measured) ABG Methemoglobin ABG O2 Capacity VBG pH 7.38 VBG pCO2 47.0 VBG HCO3 27.8 VBG Total CO2 29.2 H VBG O2 Sat (Calc) 96.0 H VBG Base Excess 2.0 VBG Potassium 3.8 Hgb O2 Saturation Sodium 141.0 141 Chloride 108.0 H 106 Glucose 142 H Lactate 2.3 H FiO2 21.0 Potassium 3.7 Carbon Dioxide 26 Anion Gap 13 BUN 29 H Creatinine 0.8 Est GFR ( Amer) > 60 Est GFR (Non-Af Amer) > 60 POC Glucose (mg/dL) Random Glucose 141 H Lactic Acid Calcium 9.0 Magnesium 2.0 Total Bilirubin AST ALT Alkaline Phosphatase Troponin I < 0.01 NT-Pro-B Natriuret Pep 312 Total Protein Albumin Globulin Albumin/Globulin Ratio Venous Blood Potassium 3.8 Urine Color Urine Appearance Urine pH Ur Specific [place] Urine Protein Urine Glucose (UA) Urine Ketones Urine Blood Urine Nitrate Urine Bilirubin Urine Urobilinogen Ur Leukocyte Esterase Urine RBC Urine WBC Urine Bacteria 01/19/18 01/19/18 01/19/18 09:40 11:20 12:45 WBC RBC Hgb Hct MCV MCH MCHC RDW Plt Count MPV Gran % Lymph % (Auto) Anson % (Auto) Eos % (Auto) Baso % (Auto) Gran # Lymph # (Auto) Anson # (Auto) Eos # (Auto) Baso # (Auto) pCO2 38 pO2 111.0 H 49 HCO3 24.1 ABG pH 7.41 ABG Total CO2 25.3 ABG O2 Saturation 99.1 H ABG O2 Content 18.5 ABG Base Excess -0.3 ABG Hemoglobin 13.5 ABG Carboxyhemoglobin 1.7 H POC ABG HHb (Measured) 0.9 ABG Methemoglobin 0.7 ABG O2 Capacity 18.7 VBG pH 7.26 L VBG pCO2 62.0 H VBG HCO3 27.8 VBG Total CO2 29.7 H VBG O2 Sat (Calc) 83.4 H VBG Base Excess -0.6 L VBG Potassium 4.2 Hgb O2 Saturation 96.7 Sodium 142.0 Chloride 110.0 H Glucose 151 H Lactate 3.5 H FiO2 100.0 21.0 Potassium Carbon Dioxide Anion Gap BUN Creatinine Est GFR ( Amer) Est GFR (Non-Af Amer) POC Glucose (mg/dL) Random Glucose Lactic Acid Calcium Magnesium Total Bilirubin AST ALT Alkaline Phosphatase Troponin I NT-Pro-B Natriuret Pep Total Protein Albumin Globulin Albumin/Globulin Ratio Venous Blood Potassium 4.2 Urine Color Yellow Urine Appearance Sl cloudy Urine pH 6.0 Ur Specific [place] >= 1.030 Urine Protein 30 H Urine Glucose (UA) Negative Urine Ketones 15 H Urine Blood Negative Urine Nitrate Negative Urine Bilirubin Negative Urine Urobilinogen 0.2 Ur Leukocyte Esterase Negative Urine RBC Negative Urine WBC 0 - 2 Urine Bacteria Trace 01/19/18 01/19/18 01/19/18 13:40 16:21 20:12 WBC RBC Hgb Hct MCV MCH MCHC RDW Plt Count MPV Gran % Lymph % (Auto) Anson % (Auto) Eos % (Auto) Baso % (Auto) Gran # Lymph # (Auto) Anson # (Auto) Eos # (Auto) Baso # (Auto) pCO2 pO2 86 H HCO3 ABG pH ABG Total CO2 ABG O2 Saturation ABG O2 Content ABG Base Excess ABG Hemoglobin ABG Carboxyhemoglobin POC ABG HHb (Measured) ABG Methemoglobin ABG O2 Capacity VBG pH 7.34 VBG pCO2 47.0 VBG HCO3 25.4 VBG Total CO2 26.8 VBG O2 Sat (Calc) 97.6 H VBG Base Excess -0.8 L VBG Potassium 4.1 Hgb O2 Saturation Sodium 141.0 Chloride 113.0 H Glucose 173 H Lactate 1.7 FiO2 21.0 Potassium Carbon Dioxide Anion Gap BUN Creatinine Est GFR ( Amer) Est GFR (Non-Af Amer) POC Glucose (mg/dL) 166 H Random Glucose Lactic Acid 1.8 Calcium Magnesium Total Bilirubin AST ALT Alkaline Phosphatase Troponin I NT-Pro-B Natriuret Pep Total Protein Albumin Globulin Albumin/Globulin Ratio Venous Blood Potassium 4.1 Urine Color Urine Appearance Urine pH Ur Specific [place] Urine Protein Urine Glucose (UA) Urine Ketones Urine Blood Urine Nitrate Urine Bilirubin Urine Urobilinogen Ur Leukocyte Esterase Urine RBC Urine WBC Urine Bacteria 01/20/18 01/20/18 07:10 07:10 WBC 13.5 H D RBC 4.08 Hgb 12.6 L Hct 37.5 L MCV 91.9 MCH 30.9 MCHC 33.6 RDW 14.2 Plt Count 151 MPV 10.0 Gran % Lymph % (Auto) Anson % (Auto) Eos % (Auto) Baso % (Auto) Gran # Lymph # (Auto) Anson # (Auto) Eos # (Auto) Baso # (Auto) pCO2 pO2 HCO3 ABG pH ABG Total CO2 ABG O2 Saturation ABG O2 Content ABG Base Excess ABG Hemoglobin ABG Carboxyhemoglobin POC ABG HHb (Measured) ABG Methemoglobin ABG O2 Capacity VBG pH VBG pCO2 VBG HCO3 VBG Total CO2 VBG O2 Sat (Calc) VBG Base Excess VBG Potassium Hgb O2 Saturation Sodium 146 Chloride 111 H Glucose Lactate FiO2 Potassium 4.1 Carbon Dioxide 25 Anion Gap 14 BUN 30 H Creatinine 0.7 L Est GFR ( Amer) > 60 Est GFR (Non-Af Amer) > 60 POC Glucose (mg/dL) Random Glucose 136 H Lactic Acid Calcium 8.4 Magnesium Total Bilirubin 0.6 AST 24 ALT 38 Alkaline Phosphatase 91 Troponin I NT-Pro-B Natriuret Pep Total Protein 5.5 L Albumin 2.7 L Globulin 2.8 Albumin/Globulin Ratio 1.0 L Venous Blood Potassium Urine Color Urine Appearance Urine pH Ur Specific [place] Urine Protein Urine Glucose (UA) Urine Ketones Urine Blood Urine Nitrate Urine Bilirubin Urine Urobilinogen Ur Leukocyte Esterase Urine RBC Urine WBC Urine Bacteria EKG/Cardiology Studies: Cardiology / EKG Studies 01/19/18 09:47 EKG [ELECTROCARDIOGRAM] Stat Comment: Reason For Exam: CONGESTION Fingerstick Blood Sugar Results: 150 Review of Systems - Review of Systems Systems not reviewed;Unavailable: Altered Mental Status Critical Care Progress Note - Ventilator Checklist Head of Bed 30 Degrees: Yes PUD Prophalyxis: Yes DVT Prophylaxis: Yes - Extremities/Vascular Does the Patient have a Central Venous Catheter?: No Does the Patient need a Central Venous Catheter?: No Does the Patient have a Guardado Catheter?: Yes - Nutrition Nutrition: Nutrition Category Date Time Status NPO Diet [DIET] Diets 01/19/18 Lunch Ordered Assessment/Plan - Assessment and Plan (Free Text) Assessment: 72 year old male with past medical history of multiple sclerosis, dementia, COPD, prostate cancer presents with shortness of breath and muscle stiffness. Patient has also had new difficulty with ambulating. Patient was found to have right upper lobe lung mass with T3 vertebral body invasion and extension into neuroforamen. Plan: Neuro: -AAOx1, no FND, baseline tremor -Head CT: severe atrophy of the brain -Chest CT: right upper lobe lesion with T3 lesion extending into foramen possibly contributing to newfound gait instability. -Monitor neuro status. -Reorient patient as necessary. Cardio: -RRR, normotensive, no signs of HD compromise -Maintain MAP>65. -Monitor for S/S, HD compromise. Pulm: -No signs of respiratory distress. CTA B/L -Patient is stating at 92% on high flow oxygen at 44.2% and 31.1 degrees Celsius -VBG from 01/19: pH: 7.34, Po2: 86, pCO2: 47, O2 saturation: 97.6, Lactate: 1.7. -Protective lung ventilation strategy, aspiration precautions -CXR: right upper lobe mass -Chext CT: right upper lung mass with invasion into T3 spinal canal. Bony metastatic lesion at the 12th rib. Fibrosis in left lower lobe of the lung. -Elevate bed to 30 degrees -Patient for biopsy of metastatic lung lesion by Dr. Miguel De La Cruz GI: -NPO -Nursing swallow eval for potential start of diet post procedure -Protonix or pepcid /Nephro: -BUN/Cr stable -UA: negative blood, negative nitrate, negative ketone, negative leukocyte esterase, trace bacteria -Good urine output: 380 mL -Continue monitoring. -Replete electrolytes as needed. -Maintain euvolemia. Endocrinology: -Maintain euglycemia. Heme/Onc: -H/H stable. -No signs of HD compromise. -Continue monitoring H/H ID: -Afebrile, no leukocytosis -Follow up BCx, UCx, Procalcitonin, Lactate -Continue vancomycin and cefepime as emperic therapy. -Monitor for signs and symptoms of infection. DVT prophylaxis: heparin 5000 U Q8 GI prophylaxis: protonix 40 mg daily Patient seen and examined with Dr. Doan. - Date & Time Date: 01/20/18 Time: 10:03 <Haroon Doan - Last Filed: 01/20/18 15:02> CCU Objective - Vital Signs / Intake & Output Vital Signs (Last 4 hours): Vital Signs Resp 01/20/18 13:36 20 Intake and Output (Last 8hrs): Intake & Output 01/20/18 01/20/18 01/20/18 06:59 14:59 22:59 Intake Total 1450 Output Total 380 Balance 1070 Weight 83.733 kg Intake: IV 1450 Right Antecubital 1450 Output: Urine 380 Urine, Voided 380 Stool 0 - Medications Active Medications: Active Medications Generic Name Dose Route Start Last Admin Trade Name Freq PRN Reason Stop Dose Admin Donepezil HCl 10 mg 01/19/18 22:00 01/19/18 22:11 Aricept PO Not Given HS LOWELL Heparin Sodium (Porcine) 5,000 units 01/19/18 15:15 01/20/18 07:30 Heparin SC Not Given Q8H LOWELL Protocol Cefepime HCl 1 gm in 100 mls @ 100 mls/hr 01/19/18 22:00 01/20/18 06:41 Maxipime 1gm IVPB 100 mls/hr Q8 LOWELL Administration Protocol Vancomycin HCl 1 gm in 250 mls @ 167 mls/hr 01/19/18 22:00 01/20/18 11:16 Vancomycin 1gm IVPB 167 mls/hr Q12H LOWELL Administration Protocol Sodium Chloride 1,000 mls @ 100 mls/hr 01/19/18 15:45 01/20/18 04:45 Sodium Chloride 0.9% IV 100 mls/hr .Q10H LOWELL Administration Insulin Human Regular 0 units 01/19/18 17:33 01/20/18 06:42 Humulin R Med SC Not Given Q4H LOWELL Protocol Methylprednisolone 60 mg 01/19/18 15:00 01/20/18 06:40 Solu-Medrol IVP 60 mg Q8H LOWELL Administration Pantoprazole Sodium 40 mg 01/19/18 15:15 01/19/18 17:30 Protonix Inj IVP 40 mg DAILY LOWELL Administration - Patient Studies Lab Studies: Microbiology Studies 01/19/18 10:00 Blood Culture - Preliminary Blood-Venous NO GROWTH AFTER 24 HOURS 01/19/18 09:40 Blood Culture - Preliminary Blood-Venous NO GROWTH AFTER 24 HOURS Lab Studies 01/20/18 01/20/18 01/20/18 Range/Units 11:34 07:30 07:10 WBC (4.5-11.0) 10^3/ul RBC (3.5-6.1) 10^6/uL Hgb (14.0-18.0) g/dL Hct (42.0-52.0) % MCV (80.0-105.0) fl MCH (25.0-35.0) pg MCHC (31.0-37.0) g/dl RDW (11.5-14.5) % Plt Count (120.0-450.0) 10^3/uL MPV (7.0-11.0) fl pO2 (30-55) mm/Hg VBG pH (7.32-7.43) VBG pCO2 (40-60) VBG HCO3 (21-28) mmol/l VBG Total CO2 (22-28) mmol.L VBG O2 Sat (Calc) (40-65) % VBG Base Excess (0.0-2.0) mmol/L VBG Potassium (3.6-5.2) mmol/L Sodium 146 (132-148) mmol/L Chloride 111 H (98-107) mmol/L Glucose (75-110) mg/dl Lactate (0.7-2.1) mmol/L FiO2 % Potassium 4.1 (3.6-5.0) mmol/L Carbon Dioxide 25 (21-33) mmol/L Anion Gap 14 (10-20) BUN 30 H (7-21) mg/dL Creatinine 0.7 L (0.8-1.5) mg/dl Est GFR ( Amer) > 60 Est GFR (Non-Af Amer) > 60 POC Glucose (mg/dL) 123 H 143 H (65-110) mg/dL Random Glucose 136 H (70-110) mg/dL Calcium 8.4 (8.4-10.5) mg/dL Total Bilirubin 0.6 (0.2-1.3) mg/dL AST 24 (17-59) U/L ALT 38 (7-56) U/L Alkaline Phosphatase 91 (38-126) U/L Total Protein 5.5 L (5.8-8.3) g/dL Albumin 2.7 L (3.0-4.8) g/dL Globulin 2.8 gm/dL Albumin/Globulin Ratio 1.0 L (1.1-1.8) Procalcitonin (0.19-0.49) NG/ML Venous Blood Potassium (3.6-5.2) mmol/L 01/20/18 01/20/18 01/20/18 Range/Units 07:10 04:34 02:00 WBC 13.5 H D (4.5-11.0) 10^3/ul RBC 4.08 (3.5-6.1) 10^6/uL Hgb 12.6 L (14.0-18.0) g/dL Hct 37.5 L (42.0-52.0) % MCV 91.9 (80.0-105.0) fl MCH 30.9 (25.0-35.0) pg MCHC 33.6 (31.0-37.0) g/dl RDW 14.2 (11.5-14.5) % Plt Count 151 (120.0-450.0) 10^3/uL MPV 10.0 (7.0-11.0) fl pO2 (30-55) mm/Hg VBG pH (7.32-7.43) VBG pCO2 (40-60) VBG HCO3 (21-28) mmol/l VBG Total CO2 (22-28) mmol.L VBG O2 Sat (Calc) (40-65) % VBG Base Excess (0.0-2.0) mmol/L VBG Potassium (3.6-5.2) mmol/L Sodium (132-148) mmol/L Chloride (98-107) mmol/L Glucose (75-110) mg/dl Lactate (0.7-2.1) mmol/L FiO2 % Potassium (3.6-5.0) mmol/L Carbon Dioxide (21-33) mmol/L Anion Gap (10-20) BUN (7-21) mg/dL Creatinine (0.8-1.5) mg/dl Est GFR ( Amer) Est GFR (Non-Af Amer) POC Glucose (mg/dL) 150 H 157 H (65-110) mg/dL Random Glucose (70-110) mg/dL Calcium (8.4-10.5) mg/dL Total Bilirubin (0.2-1.3) mg/dL AST (17-59) U/L ALT (7-56) U/L Alkaline Phosphatase (38-126) U/L Total Protein (5.8-8.3) g/dL Albumin (3.0-4.8) g/dL Globulin gm/dL Albumin/Globulin Ratio (1.1-1.8) Procalcitonin (0.19-0.49) NG/ML Venous Blood Potassium (3.6-5.2) mmol/L 01/19/18 01/19/18 01/19/18 Range/Units 21:28 20:12 16:21 WBC (4.5-11.0) 10^3/ul RBC (3.5-6.1) 10^6/uL Hgb (14.0-18.0) g/dL Hct (42.0-52.0) % MCV (80.0-105.0) fl MCH (25.0-35.0) pg MCHC (31.0-37.0) g/dl RDW (11.5-14.5) % Plt Count (120.0-450.0) 10^3/uL MPV (7.0-11.0) fl pO2 86 H (30-55) mm/Hg VBG pH 7.34 (7.32-7.43) VBG pCO2 47.0 (40-60) VBG HCO3 25.4 (21-28) mmol/l VBG Total CO2 26.8 (22-28) mmol.L VBG O2 Sat (Calc) 97.6 H (40-65) % VBG Base Excess -0.8 L (0.0-2.0) mmol/L VBG Potassium 4.1 (3.6-5.2) mmol/L Sodium 141.0 (132-148) mmol/L Chloride 113.0 H (98-107) mmol/L Glucose 173 H (75-110) mg/dl Lactate 1.7 (0.7-2.1) mmol/L FiO2 21.0 % Potassium (3.6-5.0) mmol/L Carbon Dioxide (21-33) mmol/L Anion Gap (10-20) BUN (7-21) mg/dL Creatinine (0.8-1.5) mg/dl Est GFR ( Amer) Est GFR (Non-Af Amer) POC Glucose (mg/dL) 167 H 166 H (65-110) mg/dL Random Glucose (70-110) mg/dL Calcium (8.4-10.5) mg/dL Total Bilirubin (0.2-1.3) mg/dL AST (17-59) U/L ALT (7-56) U/L Alkaline Phosphatase (38-126) U/L Total Protein (5.8-8.3) g/dL Albumin (3.0-4.8) g/dL Globulin gm/dL Albumin/Globulin Ratio (1.1-1.8) Procalcitonin (0.19-0.49) NG/ML Venous Blood Potassium 4.1 (3.6-5.2) mmol/L 01/19/18 Range/Units 09:40 WBC (4.5-11.0) 10^3/ul RBC (3.5-6.1) 10^6/uL Hgb (14.0-18.0) g/dL Hct (42.0-52.0) % MCV (80.0-105.0) fl MCH (25.0-35.0) pg MCHC (31.0-37.0) g/dl RDW (11.5-14.5) % Plt Count (120.0-450.0) 10^3/uL MPV (7.0-11.0) fl pO2 (30-55) mm/Hg VBG pH (7.32-7.43) VBG pCO2 (40-60) VBG HCO3 (21-28) mmol/l VBG Total CO2 (22-28) mmol.L VBG O2 Sat (Calc) (40-65) % VBG Base Excess (0.0-2.0) mmol/L VBG Potassium (3.6-5.2) mmol/L Sodium (132-148) mmol/L Chloride (98-107) mmol/L Glucose (75-110) mg/dl Lactate (0.7-2.1) mmol/L FiO2 % Potassium (3.6-5.0) mmol/L Carbon Dioxide (21-33) mmol/L Anion Gap (10-20) BUN (7-21) mg/dL Creatinine (0.8-1.5) mg/dl Est GFR ( Amer) Est GFR (Non-Af Amer) POC Glucose (mg/dL) (65-110) mg/dL Random Glucose (70-110) mg/dL Calcium (8.4-10.5) mg/dL Total Bilirubin (0.2-1.3) mg/dL AST (17-59) U/L ALT (7-56) U/L Alkaline Phosphatase (38-126) U/L Total Protein (5.8-8.3) g/dL Albumin (3.0-4.8) g/dL Globulin gm/dL Albumin/Globulin Ratio (1.1-1.8) Procalcitonin 0.08 L (0.19-0.49) NG/ML Venous Blood Potassium (3.6-5.2) mmol/L Laboratory Results - last 24 hr 01/19/18 01/19/18 01/19/18 09:40 16:21 20:12 WBC RBC Hgb Hct MCV MCH MCHC RDW Plt Count MPV pO2 86 H VBG pH 7.34 VBG pCO2 47.0 VBG HCO3 25.4 VBG Total CO2 26.8 VBG O2 Sat (Calc) 97.6 H VBG Base Excess -0.8 L VBG Potassium 4.1 Sodium 141.0 Chloride 113.0 H Glucose 173 H Lactate 1.7 FiO2 21.0 Potassium Carbon Dioxide Anion Gap BUN Creatinine Est GFR ( Amer) Est GFR (Non-Af Amer) POC Glucose (mg/dL) 166 H Random Glucose Calcium Total Bilirubin AST ALT Alkaline Phosphatase Total Protein Albumin Globulin Albumin/Globulin Ratio Procalcitonin 0.08 L Venous Blood Potassium 4.1 01/19/18 01/20/18 01/20/18 21:28 02:00 04:34 WBC RBC Hgb Hct MCV MCH MCHC RDW Plt Count MPV pO2 VBG pH VBG pCO2 VBG HCO3 VBG Total CO2 VBG O2 Sat (Calc) VBG Base Excess VBG Potassium Sodium Chloride Glucose Lactate FiO2 Potassium Carbon Dioxide Anion Gap BUN Creatinine Est GFR ( Amer) Est GFR (Non-Af Amer) POC Glucose (mg/dL) 167 H 157 H 150 H Random Glucose Calcium Total Bilirubin AST ALT Alkaline Phosphatase Total Protein Albumin Globulin Albumin/Globulin Ratio Procalcitonin Venous Blood Potassium 01/20/18 01/20/18 01/20/18 07:10 07:10 07:30 WBC 13.5 H D RBC 4.08 Hgb 12.6 L Hct 37.5 L MCV 91.9 MCH 30.9 MCHC 33.6 RDW 14.2 Plt Count 151 MPV 10.0 pO2 VBG pH VBG pCO2 VBG HCO3 VBG Total CO2 VBG O2 Sat (Calc) VBG Base Excess VBG Potassium Sodium 146 Chloride 111 H Glucose Lactate FiO2 Potassium 4.1 Carbon Dioxide 25 Anion Gap 14 BUN 30 H Creatinine 0.7 L Est GFR ( Amer) > 60 Est GFR (Non-Af Amer) > 60 POC Glucose (mg/dL) 143 H Random Glucose 136 H Calcium 8.4 Total Bilirubin 0.6 AST 24 ALT 38 Alkaline Phosphatase 91 Total Protein 5.5 L Albumin 2.7 L Globulin 2.8 Albumin/Globulin Ratio 1.0 L Procalcitonin Venous Blood Potassium 01/20/18 11:34 WBC RBC Hgb Hct MCV MCH MCHC RDW Plt Count MPV pO2 VBG pH VBG pCO2 VBG HCO3 VBG Total CO2 VBG O2 Sat (Calc) VBG Base Excess VBG Potassium Sodium Chloride Glucose Lactate FiO2 Potassium Carbon Dioxide Anion Gap BUN Creatinine Est GFR ( Amer) Est GFR (Non-Af Amer) POC Glucose (mg/dL) 123 H Random Glucose Calcium Total Bilirubin AST ALT Alkaline Phosphatase Total Protein Albumin Globulin Albumin/Globulin Ratio Procalcitonin Venous Blood Potassium Critical Care Progress Note - Nutrition Nutrition: Nutrition Category Date Time Status NPO Diet [DIET] Diets 01/19/18 Lunch Ordered Addendum Addendum: 01/20/18 15:02 ICU Attending Addendum: Patient seen and examined. Case reviewed on round with housestaff. Agree with resident note above with the following additions/exceptions: 72M former smoker, COPD. multiple sclerosis, dementia, prostate cancer presents with shortness of breath and weakness found to have a RUL mass with extension into neuroforamen likely metastatic lung cancer for CT guided biopsy today. Mass is 2.6 x 4.3cm adjacent to the vertebral body along with other nodules and likely rib met. All very suggestive of advanced lung ca. Will f/u post biopsy should have genetic markers done as well (EFGR / ALK etc), defer to Onc cont steroids and nebs for now empiric abx - desecalate when cultures return rest of care above Haroon Doan MD [employer] Worker
[2018-01-20] MEDS: Vancomycin 1gm in NS 250ml 1 GM/250 ML BAG IVPB SCH ×2 (11:16→22:00)
--- NOTE | 2018-01-20 12:05 | CP.PCM.CON ---
History of Present Illness - History of Present Illness History of Present Illness: Mr Be is a 72 year old male with past medical history of COPD and dementia who came to the emergency room with shortness of breath. He had been in the hospital two weeks prior for similar symptoms. As per the family, after the last admission, he was definitely weaker. He was able to stand with assistance. However, starting Wednesday, he was unable to acutely move his legs. His nursing home social worker also noticed that he was unable to sit up straight. On January 19, 2018 when he was admitted, he had an acute exacerbation of his breathing which did not improve with nebulizers. As such, his family brought him in. A CT of the head was negative. A CT of the chest on January 19, 2018 revealed a right upper lung mass adjacent to the spine measuring 2.6 x 4.3cm with invasion of the T3 vertebral body with extension to the neural foramina with epidural invasion on the right side of the canal. He has a bone lesion at T3 and a lytic lesion at right proximal 12th rib. He is on high flow oxygen and on steroids. He has had no improvement in his functionality. He is referred for palliative radiation. He will be getting a biopsy today. Review of Systems - Constitutional Constitutional: Weakness - Respiratory Respiratory: Cough, Dyspnea - Neurological Additional comments: lower extremity paralysis Past Patient History - Infectious Disease Hx of Infectious Diseases: None - Past Social History Smoking Status: Former Smoker Alcohol: None Home Situation {Lives}: With Family - CARDIAC Hx Cardiac Disorders: No - PULMONARY Hx Respiratory Disorders: Yes (LUNG CA METS TO BONES) Hx Chronic Obstructive Pulmonary Disease (COPD): Yes - NEUROLOGICAL Hx Neurological Disorder: Yes Hx Alzheimer's Disease: Yes Hx Dementia: Yes Other/Comment: multiple sclerosis - HEENT Hx HEENT Problems: No - RENAL Hx Chronic Kidney Disease: No - ENDOCRINE/METABOLIC Hx Endocrine Disorders: No - HEMATOLOGICAL/ONCOLOGICAL Hx Blood Disorders: Yes Hx Cancer: Yes (LUNG CA WETS TO BONE) - INTEGUMENTARY Hx Dermatological Problems: No - MUSCULOSKELETAL/RHEUMATOLOGICAL Hx Musculoskeletal Disorders: Yes Hx Falls: Yes Hx Unsteady Gait: Yes - GASTROINTESTINAL Hx Gastrointestinal Disorders: Yes HX Swallowing Problems: Yes - GENITOURINARY/GYNECOLOGICAL Hx Genitourinary Disorders: Yes Hx Incontinence: Yes - PSYCHIATRIC Hx Psychophysiologic Disorder: No Hx Substance Use: No - SURGICAL HISTORY Hx Surgeries: No - ANESTHESIA Hx Anesthesia: No Hx Anesthesia Reactions: No Hx Malignant Hyperthermia: No Meds Allergies/Adverse Reactions: Allergies Allergy/AdvReac Type Severity Reaction Status Date / Time No Known Allergies Allergy Verified 01/19/18 19:14 - Medications Medications: Current Medications Donepezil HCl (Aricept) 10 mg PO HS LOWELL Last Admin: 01/19/18 22:11 Dose: Not Given Heparin Sodium (Porcine) (Heparin) 5,000 units SC Q8H LOWELL; Protocol Last Admin: 01/20/18 07:30 Dose: Not Given Cefepime HCl (Maxipime 1gm) 1 gm in 100 mls @ 100 mls/hr IVPB Q8 LOWELL; Protocol Last Admin: 01/20/18 06:41 Dose: 100 mls/hr Vancomycin HCl (Vancomycin 1gm) 1 gm in 250 mls @ 167 mls/hr IVPB Q12H LOWELL; Protocol Last Admin: 01/20/18 11:16 Dose: 167 mls/hr Sodium Chloride (Sodium Chloride 0.9%) 1,000 mls @ 100 mls/hr IV .Q10H LOWELL Last Admin: 01/20/18 04:45 Dose: 100 mls/hr Insulin Human Regular (Humulin R Med) 0 units SC Q4H LOWELL; Protocol Last Admin: 01/20/18 06:42 Dose: Not Given Methylprednisolone (Solu-Medrol) 60 mg IVP Q8H LOWELL Last Admin: 01/20/18 06:40 Dose: 60 mg Pantoprazole Sodium (Protonix Inj) 40 mg IVP DAILY LOWELL Last Admin: 01/19/18 17:30 Dose: 40 mg Physical Exam - Constitutional Appears: Chronically Ill - Head Exam Head Exam: NORMAL INSPECTION - Eye Exam Eye Exam: EOMI - Respiratory Exam Respiratory Exam: Wheezes - Cardiovascular Exam Cardiovascular Exam: REGULAR RHYTHM - GI/Abdominal Exam GI & Abdominal Exam: Normal Bowel Sounds - Neurological Exam Neurological exam: CN II-XII Intact, Oriented x3 Additional comments: lower extremity paralysis with upper extremity tremors. Results - Vital Signs Recent Vital Signs: Last Vital Signs Temp 99.8 F H 01/19/18 14:05 Pulse 64 01/20/18 06:00 Resp 20 01/20/18 07:47 BP 132/66 01/19/18 14:05 Pulse Ox 92 L 01/19/18 14:05 - Labs Result Diagrams: 01/20/18 07:10 01/20/18 07:10 Labs: Laboratory Results - last 24 hr 01/19/18 01/19/18 01/19/18 12:45 13:40 16:21 WBC RBC Hgb Hct MCV MCH MCHC RDW Plt Count MPV pO2 49 VBG pH 7.26 L VBG pCO2 62.0 H VBG HCO3 27.8 VBG Total CO2 29.7 H VBG O2 Sat (Calc) 83.4 H VBG Base Excess -0.6 L VBG Potassium 4.2 Sodium 142.0 Chloride 110.0 H Glucose 151 H Lactate 3.5 H FiO2 21.0 Potassium Carbon Dioxide Anion Gap BUN Creatinine Est GFR ( Amer) Est GFR (Non-Af Amer) POC Glucose (mg/dL) 166 H Random Glucose Lactic Acid 1.8 Calcium Total Bilirubin AST ALT Alkaline Phosphatase Total Protein Albumin Globulin Albumin/Globulin Ratio Venous Blood Potassium 4.2 01/19/18 01/19/18 01/20/18 20:12 21:28 02:00 WBC RBC Hgb Hct MCV MCH MCHC RDW Plt Count MPV pO2 86 H VBG pH 7.34 VBG pCO2 47.0 VBG HCO3 25.4 VBG Total CO2 26.8 VBG O2 Sat (Calc) 97.6 H VBG Base Excess -0.8 L VBG Potassium 4.1 Sodium 141.0 Chloride 113.0 H Glucose 173 H Lactate 1.7 FiO2 21.0 Potassium Carbon Dioxide Anion Gap BUN Creatinine Est GFR ( Amer) Est GFR (Non-Af Amer) POC Glucose (mg/dL) 167 H 157 H Random Glucose Lactic Acid Calcium Total Bilirubin AST ALT Alkaline Phosphatase Total Protein Albumin Globulin Albumin/Globulin Ratio Venous Blood Potassium 4.1 01/20/18 01/20/18 01/20/18 04:34 07:10 07:10 WBC 13.5 H D RBC 4.08 Hgb 12.6 L Hct 37.5 L MCV 91.9 MCH 30.9 MCHC 33.6 RDW 14.2 Plt Count 151 MPV 10.0 pO2 VBG pH VBG pCO2 VBG HCO3 VBG Total CO2 VBG O2 Sat (Calc) VBG Base Excess VBG Potassium Sodium 146 Chloride 111 H Glucose Lactate FiO2 Potassium 4.1 Carbon Dioxide 25 Anion Gap 14 BUN 30 H Creatinine 0.7 L Est GFR ( Amer) > 60 Est GFR (Non-Af Amer) > 60 POC Glucose (mg/dL) 150 H Random Glucose 136 H Lactic Acid Calcium 8.4 Total Bilirubin 0.6 AST 24 ALT 38 Alkaline Phosphatase 91 Total Protein 5.5 L Albumin 2.7 L Globulin 2.8 Albumin/Globulin Ratio 1.0 L Venous Blood Potassium 01/20/18 01/20/18 07:30 11:34 WBC RBC Hgb Hct MCV MCH MCHC RDW Plt Count MPV pO2 VBG pH VBG pCO2 VBG HCO3 VBG Total CO2 VBG O2 Sat (Calc) VBG Base Excess VBG Potassium Sodium Chloride Glucose Lactate FiO2 Potassium Carbon Dioxide Anion Gap BUN Creatinine Est GFR ( Amer) Est GFR (Non-Af Amer) POC Glucose (mg/dL) 143 H 123 H Random Glucose Lactic Acid Calcium Total Bilirubin AST ALT Alkaline Phosphatase Total Protein Albumin Globulin Albumin/Globulin Ratio Venous Blood Potassium Assessment & Plan - Assessment and Plan (Free Text) Assessment: Mr Be is a 72 year old male with past medical history of COPD and dementia and h/o prostate cancer status post treatment with a new lung mass with invasion to the T3 vertebral body. We would concur that he needs a biopsy for pathologic confirmation. Most likely this is a lung primary. We spoke to the family that the likelihood of reversing his neurologic symptoms is very low given the fact that it has been at least 5 days since he became paralyzed. Typically, immediate decompression would involve surgery, however given his pulmonary issues MS, he control and to mitigate his symptoms. We also spoke about getting a metastatic work-up including a CT of the abdomen and pelvis. The family is undecided yet about how to proceed with the treatment. They are going to discuss things as a family prior to letting us know about the radiation.
--- NOTE | 2018-01-20 16:20 | CT ---
Date of service: 01/20/2018 PROCEDURE: CT Abdomen and Pelvis without intravenous contrast HISTORY: metastatic lung w/ paralysis.r/o additional lesion COMPARISON: None. TECHNIQUE: Without contrast. Contrast dose: Radiation dose: Total exam DLP = 1113 mGy-cm. This CT exam was performed using one or more of the following dose reduction techniques: Automated exposure control, adjustment of the mA and/or kV according to patient size, and/or use of iterative reconstruction technique. FINDINGS: LOWER THORAX: Bibasilar infiltrates left greater than right LIVER: Unremarkable. No gross lesion or ductal dilatation. GALLBLADDER AND BILE DUCTS: Unremarkable. PANCREAS: Unremarkable. No gross lesion or ductal dilatation. SPLEEN: Unremarkable. ADRENALS: There is a 15 x 20 mm adrenal nodule on the right. KIDNEYS AND URETERS: Unremarkable. No hydronephrosis. No solid mass. VASCULATURE: Unremarkable. No aortic aneurysm. BOWEL: There is mild mural thickening in the ascending colon. This is suspicious for colitis. Clinical correlation is suggested. APPENDIX: Unremarkable. Normal appendix. PERITONEUM: Unremarkable. No free fluid. No free air. LYMPH NODES: Unremarkable. No enlarged lymph nodes. BLADDER: Unremarkable. REPRODUCTIVE: Unremarkable. BONES: No acute fracture. OTHER FINDINGS: None. IMPRESSION: There is mild mural thickening in the ascending colon. This is suspicious for colitis. Clinical correlation is suggested. No evidence of metastatic disease
--- NOTE | 2018-01-20 16:23 | PN ---
DATE: 01/20/2018 SUBJECTIVE: I was called in consultation for Mr. Be yesterday. I spoke to Dr. Sky, who informed me that the consult was not urgently needed, but just for a thoroughness of his workup. Evidently, a CAT scan of his lung demonstrated a mass, which had some erosion to the upper thoracic vertebral bodies. He reportedly is demented and basically a bed to chair pivot ambulator. As this apparent cancer was unknown prior to this finding that needs to be evaluated and worked up initially and according to Dr. Sky, we would need an MRI of his thoracic spine to truly delineate any possible cord compression that is not readily apparent on the CAT scan, as well as the overall involvement here. However, the feeling was Mr. Be would need to be sedated for that and at this point his respiratory condition will not allow that. Therefore, Dr. Sky stated that if and when his pulmonary status becomes stable, he will order an MRI under sedation to be done and then recall us at that time. Obviously, if anything changes in terms of his neurologic status, we will be called earlier. Martin Pedroza MD
--- NOTE | 2018-01-20 18:00 | CT ---
PROCEDURE: CT guided right lung biopsy. HISTORY: 4 cm right upper lobe lung mass. Evaluate for malignancy PHYSICIAN(S): Miguel De La Cruz MD. TECHNIQUE: The relative risks and indications of the procedure were explained to the patient's and consent obtained. The patient was placed left decubitus position on the CT scanner and preliminary images through the upper lungs obtained. Conscious sedation and monitoring were provided throughout the procedure by a nurse. There is a 4 cm noncalcified mass in the right upper lobe posteriorly and medially against the spine.. A right paraspinal approach was selected and the area prepped and draped in the usual sterile fashion. 1% Xylocaine was used to anesthetize the skin and soft tissues. A 18 gauge guiding needle was advanced into the 4 cm right upper lobe lung mass. Its position was confirmed with CT. Using coaxial technique, multiple core biopsies were obtained. The postprocedure images show no evidence of large pneumothorax or significant hemorrhage.. IMPRESSION: 1. CT-guided right lung biopsy as described above.
[2018-01-21] MEDS: Cefepime 1gm in NS 100ml 1 GM/100 ML BAG IVPB SCH ×3 (06:00→21:30)
[2018-01-21] MEDS: Sodium Chloride 0.9% 1,000 ML IV SCH ×2 (07:00→10:43)
[2018-01-21 07:40] LABS: GRAN # 14.29 (1.4-6.5); GRAN % 95.1 % (50.0-68.0); HEMOGLOBIN 12.1 g/dL (14.0-18.0); LYMPH # 0.2 (1.2-3.4); LYMPH % 1.3 % (22.0-35.0); MEAN CELL VOLUME 90.8 fl (80.0-105.0); MEAN CORPUSCULAR HGB CONC 33.1 g/dl (31.0-37.0); MEAN PLATELET VOLUME 10.4 fl (7.0-11.0); MONO # 0.5 (0.1-0.6); MONO % 3.6 % (1.0-6.0); PLATELET COUNT 155 10^3/uL (120.0-450.0); RBC 4.03 10^6/uL (3.5-6.1); RED CELL DISTRIBUTION WIDTH 14.1 % (11.5-14.5)
[2018-01-21 07:54] LABS: ALB/GLOB RATIO 0.9 (1.1-1.8); ALBUMIN 2.5 g/dL (3.0-4.8); ALT/SGPT 65 U/L (7-56); AST/SGOT 39 U/L (17-59); BLOOD UREA NITROGEN 39 mg/dL (7-21); CALCIUM 8.2 mg/dL (8.4-10.5); GFR NON-AFRICAN AMERICAN > 60
[2018-01-21 08:10] LABS: LYMPHOCYTE 2 % (22.0-35.0); NEUTROPHIL 98 % (50.0-70.0); PLATELET ESTIMATE NORMAL (NORMAL)
--- NOTE | 2018-01-21 09:58 | RAD ---
Date of service: 01/21/2018 HISTORY: rt chest bx COMPARISON: 01/19/2018 FINDINGS: LUNGS: Minimal patchy infiltrate in the right lower lobe. Blunting of the costophrenic angles PLEURA: No significant pleural effusion identified, no pneumothorax apparent. CARDIOVASCULAR: Normal. OSSEOUS STRUCTURES: No significant abnormalities. VISUALIZED UPPER ABDOMEN: Normal. OTHER FINDINGS: None. IMPRESSION: Minimal patchy infiltrate in the right lower lobe. Blunting of the costophrenic angles
--- NOTE | 2018-01-21 10:35 | CP.CCUPN ---
<Yi Snyder - Last Filed: 01/21/18 12:00> CCU Subjective - Physician Review Subjective (Free Text): Yi Snyder, PGY-1, CCU Progress Note for Dr. Triplett Patient seen and examined at bedside. Patient is AAOx1. Patient is unable to respond coherently to questions which is his baseline. 12-point ROS was unattainable due to patient's mental status. CCU Objective - Vital Signs / Intake & Output Vital Signs (Last 4 hours): Vital Signs Resp 01/21/18 07:29 18 Intake and Output (Last 8hrs): Intake & Output 01/20/18 01/21/18 01/21/18 22:59 06:59 14:59 Intake Total 625 1450 Output Total 300 300 Balance 325 1150 Weight 183 lb 12.8 oz Intake: IV 125 1450 Right Antecubital 1000 Right Forearm 450 Oral 150 0 Other 350 Output: Urine 300 300 Urine, Voided 300 300 Other: # Bowel Movements 0 2 - Physical Exam Head: Positive for: Atraumatic, Normocephalic Pupils: Positive for: PERRL Extroacular Muscles: Positive for: EOMI Conjunctiva: Positive for: Normal Respiratory/Chest: Positive for: Clear to Auscultation. Negative for: Respiratory Distress, Wheezes Cardiovascular: Positive for: Regular Rate and Rhythm, Murmurs Abdomen: Positive for: Normal Bowel Sounds. Negative for: Tenderness, Distention Upper Extremity: Positive for: Normal Inspection, NORMAL PULSES Lower Extremity: Positive for: NORMAL PULSES. Negative for: Normal Inspection (minor abrasions on bilateral lower extremities) Neurological: Positive for: CN II-XII Intact, Other (body adrienne towards the left-side). Negative for: GCS=15 (14), Speech Normal (patient non-verbal at this time.) Skin: Positive for: Warm, Dry, Normal Color. Negative for: Rashes Psychiatric: Positive for: Other (demented). Negative for: Alert, Oriented x 3 - Medications Active Medications: Active Medications Generic Name Dose Route Start Last Admin Trade Name Freq PRN Reason Stop Dose Admin Donepezil HCl 10 mg 01/19/18 22:00 01/20/18 21:56 Aricept PO Not Given HS LOWELL Heparin Sodium (Porcine) 5,000 units 01/19/18 15:15 01/21/18 07:01 Heparin SC 5,000 units Q8H LOWELL Administration Protocol Cefepime HCl 1 gm in 100 mls @ 100 mls/hr 01/19/18 22:00 01/21/18 06:00 Maxipime 1gm IVPB 100 mls/hr Q8 LOWELL Administration Protocol Vancomycin HCl 1 gm in 250 mls @ 167 mls/hr 01/19/18 22:00 01/20/18 22:00 Vancomycin 1gm IVPB 167 mls/hr Q12H LOWELL Administration Protocol Sodium Chloride 1,000 mls @ 100 mls/hr 01/19/18 15:45 01/21/18 07:00 Sodium Chloride 0.9% IV 100 mls/hr .Q10H LOWELL Administration Insulin Human Regular 0 units 01/19/18 17:33 01/20/18 21:55 Humulin R Med SC Not Given Q4H LOWELL Protocol Methylprednisolone 60 mg 01/19/18 15:00 01/21/18 07:03 Solu-Medrol IVP 60 mg Q8H LOWELL Administration Pantoprazole Sodium 40 mg 01/19/18 15:15 01/20/18 11:00 Protonix Inj IVP 40 mg DAILY LOWELL Administration - Patient Studies Lab Studies: Microbiology Studies 01/19/18 09:40 Blood Culture - Preliminary Blood-Venous NO GROWTH AFTER 48 HOURS 01/19/18 15:00 MRSA Culture (Admit) - Final Naris MRSA NOT DETECTED 01/19/18 09:40 Urine Culture - Final Urine,Catheterized No Growth (<1,000 CFU/ML) 01/19/18 10:00 Blood Culture - Preliminary Blood-Venous NO GROWTH AFTER 24 HOURS Lab Studies 01/21/18 01/21/18 01/20/18 Range/Units 07:35 07:35 21:43 WBC 15.0 H (4.5-11.0) 10^3/ul RBC 4.03 (3.5-6.1) 10^6/uL Hgb 12.1 L (14.0-18.0) g/dL Hct 36.6 L (42.0-52.0) % MCV 90.8 (80.0-105.0) fl MCH 30.0 (25.0-35.0) pg MCHC 33.1 (31.0-37.0) g/dl RDW 14.1 (11.5-14.5) % Plt Count 155 (120.0-450.0) 10^3/uL MPV 10.4 (7.0-11.0) fl Gran % 95.1 H (50.0-68.0) % Lymph % (Auto) 1.3 L (22.0-35.0) % Rabun % (Auto) 3.6 (1.0-6.0) % Eos % (Auto) 0.0 L (1.5-5.0) % Baso % (Auto) 0.0 (0.0-3.0) % Gran # 14.29 H (1.4-6.5) Lymph # (Auto) 0.2 L (1.2-3.4) Rabun # (Auto) 0.5 (0.1-0.6) Eos # (Auto) 0.0 (0.0-0.7) Baso # (Auto) 0.00 (0.0-2.0) K/mm3 Neutrophils % (Manual) 98 H (50.0-70.0) % Lymphocytes % (Manual) 2 L (22.0-35.0) % Monocytes % (Manual) TEST NOT PERFORMED Platelet Evaluation Normal (NORMAL) Sodium 145 (132-148) mmol/L Potassium 3.9 (3.6-5.0) mmol/L Chloride 117 H (98-107) mmol/L Carbon Dioxide 24 (21-33) mmol/L Anion Gap 8 L (10-20) BUN 39 H (7-21) mg/dL Creatinine 0.8 (0.8-1.5) mg/dl Est GFR ( Amer) > 60 Est GFR (Non-Af Amer) > 60 POC Glucose (mg/dL) 147 H (65-110) mg/dL Random Glucose 127 H (70-110) mg/dL Calcium 8.2 L (8.4-10.5) mg/dL Phosphorus 3.7 (2.5-4.5) mg/dL Magnesium 2.3 H (1.7-2.2) mg/dL Total Bilirubin 0.5 (0.2-1.3) mg/dL AST 39 (17-59) U/L ALT 65 H (7-56) U/L Alkaline Phosphatase 90 (38-126) U/L Total Protein 5.2 L (5.8-8.3) g/dL Albumin 2.5 L (3.0-4.8) g/dL Globulin 2.7 gm/dL Albumin/Globulin Ratio 0.9 L (1.1-1.8) Procalcitonin (0.19-0.49) NG/ML 01/20/18 01/20/18 01/20/18 Range/Units 17:26 11:34 07:30 WBC (4.5-11.0) 10^3/ul RBC (3.5-6.1) 10^6/uL Hgb (14.0-18.0) g/dL Hct (42.0-52.0) % MCV (80.0-105.0) fl MCH (25.0-35.0) pg MCHC (31.0-37.0) g/dl RDW (11.5-14.5) % Plt Count (120.0-450.0) 10^3/uL MPV (7.0-11.0) fl Gran % (50.0-68.0) % Lymph % (Auto) (22.0-35.0) % Rabun % (Auto) (1.0-6.0) % Eos % (Auto) (1.5-5.0) % Baso % (Auto) (0.0-3.0) % Gran # (1.4-6.5) Lymph # (Auto) (1.2-3.4) Rabun # (Auto) (0.1-0.6) Eos # (Auto) (0.0-0.7) Baso # (Auto) (0.0-2.0) K/mm3 Neutrophils % (Manual) (50.0-70.0) % Lymphocytes % (Manual) (22.0-35.0) % Monocytes % (Manual) Platelet Evaluation (NORMAL) Sodium (132-148) mmol/L Potassium (3.6-5.0) mmol/L Chloride (98-107) mmol/L Carbon Dioxide (21-33) mmol/L Anion Gap (10-20) BUN (7-21) mg/dL Creatinine (0.8-1.5) mg/dl Est GFR ( Amer) Est GFR (Non-Af Amer) POC Glucose (mg/dL) 118 H 123 H 143 H (65-110) mg/dL Random Glucose (70-110) mg/dL Calcium (8.4-10.5) mg/dL Phosphorus (2.5-4.5) mg/dL Magnesium (1.7-2.2) mg/dL Total Bilirubin (0.2-1.3) mg/dL AST (17-59) U/L ALT (7-56) U/L Alkaline Phosphatase (38-126) U/L Total Protein (5.8-8.3) g/dL Albumin (3.0-4.8) g/dL Globulin gm/dL Albumin/Globulin Ratio (1.1-1.8) Procalcitonin (0.19-0.49) NG/ML 01/20/18 01/20/18 01/19/18 Range/Units 04:34 02:00 21:28 WBC (4.5-11.0) 10^3/ul RBC (3.5-6.1) 10^6/uL Hgb (14.0-18.0) g/dL Hct (42.0-52.0) % MCV (80.0-105.0) fl MCH (25.0-35.0) pg MCHC (31.0-37.0) g/dl RDW (11.5-14.5) % Plt Count (120.0-450.0) 10^3/uL MPV (7.0-11.0) fl Gran % (50.0-68.0) % Lymph % (Auto) (22.0-35.0) % Rabun % (Auto) (1.0-6.0) % Eos % (Auto) (1.5-5.0) % Baso % (Auto) (0.0-3.0) % Gran # (1.4-6.5) Lymph # (Auto) (1.2-3.4) Rabun # (Auto) (0.1-0.6) Eos # (Auto) (0.0-0.7) Baso # (Auto) (0.0-2.0) K/mm3 Neutrophils % (Manual) (50.0-70.0) % Lymphocytes % (Manual) (22.0-35.0) % Monocytes % (Manual) Platelet Evaluation (NORMAL) Sodium (132-148) mmol/L Potassium (3.6-5.0) mmol/L Chloride (98-107) mmol/L Carbon Dioxide (21-33) mmol/L Anion Gap (10-20) BUN (7-21) mg/dL Creatinine (0.8-1.5) mg/dl Est GFR ( Amer) Est GFR (Non-Af Amer) POC Glucose (mg/dL) 150 H 157 H 167 H (65-110) mg/dL Random Glucose (70-110) mg/dL Calcium (8.4-10.5) mg/dL Phosphorus (2.5-4.5) mg/dL Magnesium (1.7-2.2) mg/dL Total Bilirubin (0.2-1.3) mg/dL AST (17-59) U/L ALT (7-56) U/L Alkaline Phosphatase (38-126) U/L Total Protein (5.8-8.3) g/dL Albumin (3.0-4.8) g/dL Globulin gm/dL Albumin/Globulin Ratio (1.1-1.8) Procalcitonin (0.19-0.49) NG/ML 01/19/18 Range/Units 09:40 WBC (4.5-11.0) 10^3/ul RBC (3.5-6.1) 10^6/uL Hgb (14.0-18.0) g/dL Hct (42.0-52.0) % MCV (80.0-105.0) fl MCH (25.0-35.0) pg MCHC (31.0-37.0) g/dl RDW (11.5-14.5) % Plt Count (120.0-450.0) 10^3/uL MPV (7.0-11.0) fl Gran % (50.0-68.0) % Lymph % (Auto) (22.0-35.0) % Rabun % (Auto) (1.0-6.0) % Eos % (Auto) (1.5-5.0) % Baso % (Auto) (0.0-3.0) % Gran # (1.4-6.5) Lymph # (Auto) (1.2-3.4) Rabun # (Auto) (0.1-0.6) Eos # (Auto) (0.0-0.7) Baso # (Auto) (0.0-2.0) K/mm3 Neutrophils % (Manual) (50.0-70.0) % Lymphocytes % (Manual) (22.0-35.0) % Monocytes % (Manual) Platelet Evaluation (NORMAL) Sodium (132-148) mmol/L Potassium (3.6-5.0) mmol/L Chloride (98-107) mmol/L Carbon Dioxide (21-33) mmol/L Anion Gap (10-20) BUN (7-21) mg/dL Creatinine (0.8-1.5) mg/dl Est GFR ( Amer) Est GFR (Non-Af Amer) POC Glucose (mg/dL) (65-110) mg/dL Random Glucose (70-110) mg/dL Calcium (8.4-10.5) mg/dL Phosphorus (2.5-4.5) mg/dL Magnesium (1.7-2.2) mg/dL Total Bilirubin (0.2-1.3) mg/dL AST (17-59) U/L ALT (7-56) U/L Alkaline Phosphatase (38-126) U/L Total Protein (5.8-8.3) g/dL Albumin (3.0-4.8) g/dL Globulin gm/dL Albumin/Globulin Ratio (1.1-1.8) Procalcitonin 0.08 L (0.19-0.49) NG/ML Laboratory Results - last 24 hr 01/19/18 01/19/18 01/20/18 09:40 21:28 02:00 WBC RBC Hgb Hct MCV MCH MCHC RDW Plt Count MPV Gran % Lymph % (Auto) Rabun % (Auto) Eos % (Auto) Baso % (Auto) Gran # Lymph # (Auto) Rabun # (Auto) Eos # (Auto) Baso # (Auto) Neutrophils % (Manual) Lymphocytes % (Manual) Monocytes % (Manual) Platelet Evaluation Sodium Potassium Chloride Carbon Dioxide Anion Gap BUN Creatinine Est GFR ( Amer) Est GFR (Non-Af Amer) POC Glucose (mg/dL) 167 H 157 H Random Glucose Calcium Phosphorus Magnesium Total Bilirubin AST ALT Alkaline Phosphatase Total Protein Albumin Globulin Albumin/Globulin Ratio Procalcitonin 0.08 L 01/20/18 01/20/18 01/20/18 04:34 07:30 11:34 WBC RBC Hgb Hct MCV MCH MCHC RDW Plt Count MPV Gran % Lymph % (Auto) Rabun % (Auto) Eos % (Auto) Baso % (Auto) Gran # Lymph # (Auto) Rabun # (Auto) Eos # (Auto) Baso # (Auto) Neutrophils % (Manual) Lymphocytes % (Manual) Monocytes % (Manual) Platelet Evaluation Sodium Potassium Chloride Carbon Dioxide Anion Gap BUN Creatinine Est GFR ( Amer) Est GFR (Non-Af Amer) POC Glucose (mg/dL) 150 H 143 H 123 H Random Glucose Calcium Phosphorus Magnesium Total Bilirubin AST ALT Alkaline Phosphatase Total Protein Albumin Globulin Albumin/Globulin Ratio Procalcitonin 01/20/18 01/20/18 01/21/18 17:26 21:43 07:35 WBC 15.0 H RBC 4.03 Hgb 12.1 L Hct 36.6 L MCV 90.8 MCH 30.0 MCHC 33.1 RDW 14.1 Plt Count 155 MPV 10.4 Gran % 95.1 H Lymph % (Auto) 1.3 L Rabun % (Auto) 3.6 Eos % (Auto) 0.0 L Baso % (Auto) 0.0 Gran # 14.29 H Lymph # (Auto) 0.2 L Rabun # (Auto) 0.5 Eos # (Auto) 0.0 Baso # (Auto) 0.00 Neutrophils % (Manual) 98 H Lymphocytes % (Manual) 2 L Monocytes % (Manual) TEST NOT PERFORMED Platelet Evaluation Normal Sodium Potassium Chloride Carbon Dioxide Anion Gap BUN Creatinine Est GFR ( Amer) Est GFR (Non-Af Amer) POC Glucose (mg/dL) 118 H 147 H Random Glucose Calcium Phosphorus Magnesium Total Bilirubin AST ALT Alkaline Phosphatase Total Protein Albumin Globulin Albumin/Globulin Ratio Procalcitonin 01/21/18 07:35 WBC RBC Hgb Hct MCV MCH MCHC RDW Plt Count MPV Gran % Lymph % (Auto) Rabun % (Auto) Eos % (Auto) Baso % (Auto) Gran # Lymph # (Auto) Rabun # (Auto) Eos # (Auto) Baso # (Auto) Neutrophils % (Manual) Lymphocytes % (Manual) Monocytes % (Manual) Platelet Evaluation Sodium 145 Potassium 3.9 Chloride 117 H Carbon Dioxide 24 Anion Gap 8 L BUN 39 H Creatinine 0.8 Est GFR ( Amer) > 60 Est GFR (Non-Af Amer) > 60 POC Glucose (mg/dL) Random Glucose 127 H Calcium 8.2 L Phosphorus 3.7 Magnesium 2.3 H Total Bilirubin 0.5 AST 39 ALT 65 H Alkaline Phosphatase 90 Total Protein 5.2 L Albumin 2.5 L Globulin 2.7 Albumin/Globulin Ratio 0.9 L Procalcitonin Fingerstick Blood Sugar Results: 147 Review of Systems - Review of Systems Systems not reviewed;Unavailable: Altered Mental Status Critical Care Progress Note - Ventilator Checklist Head of Bed 30 Degrees: Yes PUD Prophalyxis: Yes DVT Prophylaxis: Yes - Extremities/Vascular Does the Patient have a Central Venous Catheter?: No Does the Patient need a Central Venous Catheter?: No Does the Patient have a Guardado Catheter?: Yes - Nutrition Nutrition: Nutrition Category Date Time Status Pureed [Dysphagia/Modified Consistency Diet] [DIET] Diets 01/21/18 Breakfast Ordered Assessment/Plan - Assessment and Plan (Free Text) Assessment: 72 year old male with past medical history of multiple sclerosis, dementia, COPD, prostate cancer presents with shortness of breath and muscle stiffness. Patient has also had new difficulty with ambulating. Patient was found to have right upper lobe lung mass with T3 vertebral body invasion and extension into neuroforamen. Plan: Neuro: -AAOx1, no FND, baseline tremor -Patient's mental status and gait instability unchanged. -Head CT: severe atrophy of the brain -As per Dr. Murrell, patient's new gait instability is unlikely to be reversed due to patient's duration of symptoms prior to arrival at the hospital. -Chest CT: right upper lobe lesion with T3 lesion extending into foramen possibly contributing to newfound gait instability. -Continue aricept. -Monitor neuro status. -Reorient patient as necessary. Cardio: -RRR, normotensive, no signs of HD compromise -Maintain MAP>65. -Monitor for S/S, HD compromise. Pulm: -No signs of respiratory distress. CTA B/L -Patient is started on 4L humidified oxygen today. Patient stating well. -VBG from 01/19: pH: 7.34, Po2: 86, pCO2: 47, O2 saturation: 97.6, Lactate: 1.7. -Protective lung ventilation strategy, aspiration precautions -CXR: right upper lobe mass -Chext CT: right upper lung mass with invasion into T3 spinal canal. Bony metastatic lesion at the 12th rib. Fibrosis in left lower lobe of the lung. -Continue solumedrol -Elevate bed to 30 degrees -Patient had biopsy of right upper lobe lung mass yesterday by Dr. Miguel De La Cruz. Now, awaiting results of biopsy including EGFR, anaplastic lymphoma kinase markers, reactive oxygen species. GI: -Patient on puree thick liquid diet -Protonix 40 mg daily /Nephro: -BUN/Cr stable -UA: negative blood, negative nitrate, negative ketone, negative leukocyte esterase, trace bacteria -Urine output: 300 -Continue monitoring. -Replete electrolytes as needed. -Maintain euvolemia. Endocrinology: -Random glucose: 127 -Medium SSI continued for steroid use in hospital. -Maintain euglycemia. Heme/Onc: -H/H stable. -Mild leukocytosis at 15 -No signs of HD compromise. -Chext CT: right upper lung mass with invasion into T3 spinal canal. Bony metastatic lesion at the 12th rib. Fibrosis in left lower lobe of the lung. -As per Dr. Hernandez, he recommends steroids to protect the spinal cord. Follow up EGFR, anaplastic lymphoma kinase markers, ROS species from right upper lobe lung biopsy. -As per Dr. Murrell, patient's new gait instability is unlikely to be reversed due t o patient's duration of symptoms prior to arrival at the hospital. Metastatic workup was started. Abdominal CT showed mild thickening of the ascending colon. There was no evidence of mets on abdominal CT. -As per Dr. Pedroza, MRI warranted, but cannot perform MRI without sedation, so will wait until patient is clinically stable before doing MRI. ID: -Afebrile, leukocytosis at 15 -BCx: no growth in 24 hours. -UCx: no growth -Awaiting Procalcitonin, Lactate -Continue vancomycin and cefepime as emperic therapy. -Monitor for signs and symptoms of infection. DVT prophylaxis: heparin 5000 U Q8 GI prophylaxis: protonix 40 mg daily Disposition: Patient is afebrile, hemodynamically stable, chest X ray is unchanged, and patient is ready for transfer to Med/Surg. Patient seen and examined with Dr. Triplett - Date & Time Date: 01/21/18 Time: 10:35 <KonglisaKrishan nunez - Last Filed: 01/21/18 13:04> CCU Objective - Vital Signs / Intake & Output Vital Signs (Last 4 hours): Vital Signs Pulse Resp BP Pulse Ox 01/21/18 11:00 76 23 131/69 94 L 01/21/18 10:50 107 H 20 91 L 01/21/18 10:48 101 H 01/21/18 10:40 74 22 94 L 01/21/18 10:30 80 22 96 01/21/18 10:20 79 21 95 01/21/18 10:10 79 21 94 L 01/21/18 10:01 84 01/21/18 10:00 69 17 117/46 L 95 01/21/18 09:50 114 H 22 86 L 01/21/18 09:40 77 37 H 95 01/21/18 09:30 72 17 95 01/21/18 09:20 70 40 H 96 01/21/18 09:10 77 25 H 96 Intake and Output (Last 8hrs): Intake & Output 01/20/18 01/21/18 01/21/18 22:59 06:59 14:59 Intake Total 625 1450 Output Total 300 300 Balance 325 1150 Weight 183 lb 12.8 oz Intake: IV 125 1450 Right Antecubital 1000 Right Forearm 450 Oral 150 0 Other 350 Output: Urine 300 300 Urine, Voided 300 300 Other: # Bowel Movements 0 2 - Medications Active Medications: Active Medications Generic Name Dose Route Start Last Admin Trade Name Freq PRN Reason Stop Dose Admin Donepezil HCl 10 mg 01/19/18 22:00 01/20/18 21:56 Aricept PO Not Given HS LOWELL Heparin Sodium (Porcine) 5,000 units 01/19/18 15:15 01/21/18 07:01 Heparin SC 5,000 units Q8H LOWELL Administration Protocol Cefepime HCl 1 gm in 100 mls @ 100 mls/hr 01/19/18 22:00 01/21/18 06:00 Maxipime 1gm IVPB 100 mls/hr Q8 LOWELL Administration Protocol Vancomycin HCl 1 gm in 250 mls @ 167 mls/hr 01/19/18 22:00 01/21/18 10:46 Vancomycin 1gm IVPB 167 mls/hr Q12H LOWELL Administration Protocol Sodium Chloride 1,000 mls @ 100 mls/hr 01/19/18 15:45 01/21/18 10:43 Sodium Chloride 0.9% IV 100 mls/hr .Q10H LOWELL Administration Insulin Human Regular 0 units 01/21/18 16:30 Humulin R Med SC ACHS LOWELL Protocol Methylprednisolone 60 mg 01/19/18 15:00 01/21/18 07:03 Solu-Medrol IVP 60 mg Q8H LOWELL Administration Pantoprazole Sodium 40 mg 01/19/18 15:15 01/20/18 11:00 Protonix Inj IVP 40 mg DAILY LOWELL Administration - Patient Studies Lab Studies: Microbiology Studies 01/19/18 10:00 Blood Culture - Preliminary Blood-Venous NO GROWTH AFTER 48 HOURS 01/19/18 09:40 Blood Culture - Preliminary Blood-Venous NO GROWTH AFTER 48 HOURS 01/19/18 15:00 MRSA Culture (Admit) - Final Naris MRSA NOT DETECTED 01/19/18 09:40 Urine Culture - Final Urine,Catheterized No Growth (<1,000 CFU/ML) Lab Studies 01/21/18 01/21/18 01/20/18 Range/Units 07:35 07:35 21:43 WBC 15.0 H (4.5-11.0) 10^3/ul RBC 4.03 (3.5-6.1) 10^6/uL Hgb 12.1 L (14.0-18.0) g/dL Hct 36.6 L (42.0-52.0) % MCV 90.8 (80.0-105.0) fl MCH 30.0 (25.0-35.0) pg MCHC 33.1 (31.0-37.0) g/dl RDW 14.1 (11.5-14.5) % Plt Count 155 (120.0-450.0) 10^3/uL MPV 10.4 (7.0-11.0) fl Gran % 95.1 H (50.0-68.0) % Lymph % (Auto) 1.3 L (22.0-35.0) % Rabun % (Auto) 3.6 (1.0-6.0) % Eos % (Auto) 0.0 L (1.5-5.0) % Baso % (Auto) 0.0 (0.0-3.0) % Gran # 14.29 H (1.4-6.5) Lymph # (Auto) 0.2 L (1.2-3.4) Rabun # (Auto) 0.5 (0.1-0.6) Eos # (Auto) 0.0 (0.0-0.7) Baso # (Auto) 0.00 (0.0-2.0) K/mm3 Neutrophils % (Manual) 98 H (50.0-70.0) % Lymphocytes % (Manual) 2 L (22.0-35.0) % Monocytes % (Manual) TEST NOT PERFORMED Platelet Evaluation Normal (NORMAL) Sodium 145 (132-148) mmol/L Potassium 3.9 (3.6-5.0) mmol/L Chloride 117 H (98-107) mmol/L Carbon Dioxide 24 (21-33) mmol/L Anion Gap 8 L (10-20) BUN 39 H (7-21) mg/dL Creatinine 0.8 (0.8-1.5) mg/dl Est GFR ( Amer) > 60 Est GFR (Non-Af Amer) > 60 POC Glucose (mg/dL) 147 H (65-110) mg/dL Random Glucose 127 H (70-110) mg/dL Calcium 8.2 L (8.4-10.5) mg/dL Phosphorus 3.7 (2.5-4.5) mg/dL Magnesium 2.3 H (1.7-2.2) mg/dL Total Bilirubin 0.5 (0.2-1.3) mg/dL AST 39 (17-59) U/L ALT 65 H (7-56) U/L Alkaline Phosphatase 90 (38-126) U/L Total Protein 5.2 L (5.8-8.3) g/dL Albumin 2.5 L (3.0-4.8) g/dL Globulin 2.7 gm/dL Albumin/Globulin Ratio 0.9 L (1.1-1.8) Procalcitonin (0.19-0.49) NG/ML 01/20/18 01/19/18 Range/Units 17:26 09:40 WBC (4.5-11.0) 10^3/ul RBC (3.5-6.1) 10^6/uL Hgb (14.0-18.0) g/dL Hct (42.0-52.0) % MCV (80.0-105.0) fl MCH (25.0-35.0) pg MCHC (31.0-37.0) g/dl RDW (11.5-14.5) % Plt Count (120.0-450.0) 10^3/uL MPV (7.0-11.0) fl Gran % (50.0-68.0) % Lymph % (Auto) (22.0-35.0) % Rabun % (Auto) (1.0-6.0) % Eos % (Auto) (1.5-5.0) % Baso % (Auto) (0.0-3.0) % Gran # (1.4-6.5) Lymph # (Auto) (1.2-3.4) Rabun # (Auto) (0.1-0.6) Eos # (Auto) (0.0-0.7) Baso # (Auto) (0.0-2.0) K/mm3 Neutrophils % (Manual) (50.0-70.0) % Lymphocytes % (Manual) (22.0-35.0) % Monocytes % (Manual) Platelet Evaluation (NORMAL) Sodium (132-148) mmol/L Potassium (3.6-5.0) mmol/L Chloride (98-107) mmol/L Carbon Dioxide (21-33) mmol/L Anion Gap (10-20) BUN (7-21) mg/dL Creatinine (0.8-1.5) mg/dl Est GFR ( Amer) Est GFR (Non-Af Amer) POC Glucose (mg/dL) 118 H (65-110) mg/dL Random Glucose (70-110) mg/dL Calcium (8.4-10.5) mg/dL Phosphorus (2.5-4.5) mg/dL Magnesium (1.7-2.2) mg/dL Total Bilirubin (0.2-1.3) mg/dL AST (17-59) U/L ALT (7-56) U/L Alkaline Phosphatase (38-126) U/L Total Protein (5.8-8.3) g/dL Albumin (3.0-4.8) g/dL Globulin gm/dL Albumin/Globulin Ratio (1.1-1.8) Procalcitonin 0.08 L (0.19-0.49) NG/ML Laboratory Results - last 24 hr 01/19/18 01/20/18 01/20/18 09:40 17:26 21:43 WBC RBC Hgb Hct MCV MCH MCHC RDW Plt Count MPV Gran % Lymph % (Auto) Rabun % (Auto) Eos % (Auto) Baso % (Auto) Gran # Lymph # (Auto) Rabun # (Auto) Eos # (Auto) Baso # (Auto) Neutrophils % (Manual) Lymphocytes % (Manual) Monocytes % (Manual) Platelet Evaluation Sodium Potassium Chloride Carbon Dioxide Anion Gap BUN Creatinine Est GFR ( Amer) Est GFR (Non-Af Amer) POC Glucose (mg/dL) 118 H 147 H Random Glucose Calcium Phosphorus Magnesium Total Bilirubin AST ALT Alkaline Phosphatase Total Protein Albumin Globulin Albumin/Globulin Ratio Procalcitonin 0.08 L 01/21/18 01/21/18 07:35 07:35 WBC 15.0 H RBC 4.03 Hgb 12.1 L Hct 36.6 L MCV 90.8 MCH 30.0 MCHC 33.1 RDW 14.1 Plt Count 155 MPV 10.4 Gran % 95.1 H Lymph % (Auto) 1.3 L Rabun % (Auto) 3.6 Eos % (Auto) 0.0 L Baso % (Auto) 0.0 Gran # 14.29 H Lymph # (Auto) 0.2 L Rabun # (Auto) 0.5 Eos # (Auto) 0.0 Baso # (Auto) 0.00 Neutrophils % (Manual) 98 H Lymphocytes % (Manual) 2 L Monocytes % (Manual) TEST NOT PERFORMED Platelet Evaluation Normal Sodium 145 Potassium 3.9 Chloride 117 H Carbon Dioxide 24 Anion Gap 8 L BUN 39 H Creatinine 0.8 Est GFR ( Amer) > 60 Est GFR (Non-Af Amer) > 60 POC Glucose (mg/dL) Random Glucose 127 H Calcium 8.2 L Phosphorus 3.7 Magnesium 2.3 H Total Bilirubin 0.5 AST 39 ALT 65 H Alkaline Phosphatase 90 Total Protein 5.2 L Albumin 2.5 L Globulin 2.7 Albumin/Globulin Ratio 0.9 L Procalcitonin Critical Care Progress Note - Nutrition Nutrition: Nutrition Category Date Time Status Pureed [Dysphagia/Modified Consistency Diet] [DIET] Diets 01/21/18 Breakfast Ordered Assessment/Plan - Assessment and Plan (Free Text) Plan: Patient seen and examined on rounds with resident, agree with note with following additions/exceptions: Patient is 72yo male with PMHx multiple sclerosis, dementia, COPD, prostate cancer admitted for SOB, found to have new lung mass s/p biopsy Currently afebrile, BP stable, comfortable in NAD, doing well, on 2LNC, sat 94% Labs, imaging, chart reviewed CXR with no focal consolidation Heme Onc, and rad onc following Lung Mass, s/p biopsy COPD Hx Prostate Ca Dementia MS Recommend: - supp o2 as needed, duonebs PRN, IS - Solumedrol 40mg IV BID - OOB to chair - Follow up cultures, UCx, BCx, Procal - abx as per ID - Follow up heme onc, Rad Onc - FS control - follow up neoplastic markers - GI ppx - DVT ppx - Transfer to med surg, stable
[2018-01-21] MEDS: Vancomycin 1gm in NS 250ml 1 GM/250 ML BAG IVPB SCH ×2 (10:46→21:29)
--- NOTE | 2018-01-21 11:20 | PQF ---
PROVIDER RESPONSE TEXT: Provider was unable to determine a response for this query. REVIEWER QUERY TEXT: Rule Out Sepsis Clarification Rule out Sepsis is documented in the Medical Record. Please clarify whether: -- Patient has sepsis - Please document confirmed, suspected or probable causative organism - Please document confirmed, suspected or probable localized infection - Please clarify if sepsis is related to a device - Please clarify if sepsis was present on admission -- Sepsis was ruled out (include corresponding diagnosis for patient?s clinical picture and treatment ) -- Patient had sepsis which is resolved -- Other, please specify The patient's Clinical Indicators include: Code sepsis called in ER on admission due to elevated lactate. Patient also with fever, tachycardia, tachypnea, hypoxia, intermittent hypotension, leukocytosis. Héctor ated with maximpime and vanco. All cultures negative, CXR with no evidence of pneumonia, There is documentation of possible sepsis. Please document specifically if sepsis POA or ruled out. If present, please document suspected source . Query created by: Nati Green on 01/21/2018 8:50 AM Electronically signed by: Jasmin Dominique IM 01/21/2018 11:17 AM
--- NOTE | 2018-01-21 11:56 | CP.PCM.PN ---
Subjective - Date & Time of Evaluation Date of Evaluation: 01/21/18 Time of Evaluation: 11:55 - Subjective Subjective: We saw Mr Be yesterday in consultation, and spoke with his family. We followed up with his this morning. She would like to proceed with radiation. As such, we have brought him down to the department to simulate and start his treatment. Objective - Vital Signs/Intake and Output Vital Signs (last 24 hours): Temp Pulse Resp BP Pulse Ox 99.8 F H 80 22 117/46 L 96 01/19/18 14:05 01/21/18 10:30 01/21/18 10:30 01/21/18 10:00 01/21/18 10:30 Intake and Output: 01/21/18 01/21/18 06:59 18:59 Intake Total 1450 Output Total 300 Balance 1150 - Medications Medications: Current Medications Donepezil HCl (Aricept) 10 mg PO HS LOWELL Last Admin: 01/20/18 21:56 Dose: Not Given Heparin Sodium (Porcine) (Heparin) 5,000 units SC Q8H LOWELL; Protocol Last Admin: 01/21/18 07:01 Dose: 5,000 units Cefepime HCl (Maxipime 1gm) 1 gm in 100 mls @ 100 mls/hr IVPB Q8 LOWELL; Protocol Last Admin: 01/21/18 06:00 Dose: 100 mls/hr Vancomycin HCl (Vancomycin 1gm) 1 gm in 250 mls @ 167 mls/hr IVPB Q12H LOWELL; Protocol Last Admin: 01/21/18 10:46 Dose: 167 mls/hr Sodium Chloride (Sodium Chloride 0.9%) 1,000 mls @ 100 mls/hr IV .Q10H LOWELL Last Admin: 01/21/18 10:43 Dose: 100 mls/hr Insulin Human Regular (Humulin R Med) 0 units SC Q4H LOWELL; Protocol Last Admin: 01/20/18 21:55 Dose: Not Given Methylprednisolone (Solu-Medrol) 60 mg IVP Q8H LOWELL Last Admin: 01/21/18 07:03 Dose: 60 mg Pantoprazole Sodium (Protonix Inj) 40 mg IVP DAILY LOWELL Last Admin: 01/20/18 11:00 Dose: 40 mg - Labs Labs: 01/21/18 07:35 01/21/18 07:35
--- NOTE | 2018-01-21 12:13 | PN ---
DATE: 01/20/2018 CRITICAL CARE PROGRESS NOTE SUBJECTIVE: This 72-year-old male was examined in ICU, bed #5 on the afternoon of , 01/20/2018. His case was reviewed in detail with himself, intensive care nursing, his , Silvina Be, and Dr. Abraham Sky, public bath attendant. The patient remains bedridden with acute respiratory insufficiency in the setting of a newly noted right upper lung posterior mass that is invading his T3 vertebral body. The patient is on schedule for 03:00 p.m. this afternoon for a CT-guided lung biopsy of this mass. The patient has been seen by Dr. Dominick Hernandez from Hematology/Oncology and Dr. Kristi Murrell from Radiation Oncology. I did discuss their recommendations in detail with the patient and his , Silvina, who are considering options of radiation therapy plus/minus chemotherapy based on pathological diagnosis. At present, the patient remains weak and deconditioned. He is bedridden; however, today, he is able to move his legs and arms voluntarily with much greater motor strength. He denied any fever, chills, chest pain, or shortness of breath. PHYSICAL EXAMINATION: VITAL SIGNS: He was noted to be in a sinus rhythm on the pulp roller with a temperature of 99.8, respirations 20, pulse 75, blood pressure 129/67, and pulse ox 94% on nasal O2. HEENT: Head: Normocephalic, atraumatic. Eyes: No icterus. Ears: Clear. Throat: Noninjected. NECK: Supple. HEART: Regular S1, S2. No pathological rubs, murmurs, or gallops. LUNGS: Have occasional rhonchi and wheezing bilaterally that improve with coughing. ABDOMEN: Soft. EXTREMITIES: No edema. SKIN: Without rash. NEUROLOGICAL: Improved voluntary movement of arms and legs but marked weakness bilaterally. VASCULAR: Legs warm to touch. PSYCHOLOGICAL: Chronic confusion. LABORATORY DATA: White count 13,500, hemoglobin 12.6, hematocrit 37.5, platelets 151,000. Sodium 146, K 4.1, chloride 111, bicarb 25, BUN 30, creatinine 0.7, random blood sugar 136, calcium 8.4. Bilirubin 0.6, AST 24, ALT 38, alk phos 91. Urinalysis showed trace bacteria. Blood and urine culture show no growth at 24 hours. There was no MRSA detected on nasal swabbing. Head CT was reviewed. It showed no evidence of acute hemorrhage or stroke. Chest CT was reviewed. Once again, it showed a newly noted right upper lobe mass with invasion of the spinal canal with a presumed lytic lesion in his 12th rib on the right consistent with metastatic lung disease. PLAN: To proceed with CT-guided biopsy of his right upper lung posterior mass under the direction of Dr. Miguel De La Cruz. The patient has been scheduled for an abdominopelvic CT for completeness sake because of concerns of metastatic lung cancer. As discussed with the patient and , the patient should be strongly considered for radiation therapy of his T3 vertebral body lesion to ensure the best chance at mobility and and family will be discussing code status for this patient at this point in time. Greater than 60 minutes was spent in the care management, review of labs, orders, x-rays, and discussion of this patient's progress and workup with the patient's family and co-consultants. All questions were answered. Jasmin Dominique MD [facility]
[2018-01-21] MEDS: Insulin Reg-MEDIUM-Coverage SC SCH ×2 (18:09→23:59)
--- NOTE | 2018-01-21 19:16 | CON ---
DATE: 01/21/2018 ONCOLOGY CONSULTATION HISTORY OF PRESENT ILLNESS: This is a 72-year-old man with radiologic diagnosis of lung cancer widely metastatic to his bones. He has other medical problems including multiple sclerosis. I spoke with Dr. Murrell yesterday and we had some more information she got from some family members and basically, we have right upper lung mass invading the T3 vertebra with a 12th rib is lytic. Essentially, he suddenly stopped to walking several days ago about Wednesday and was observed for few days before he finally came in really for his lung infection, but basically, he was not walking for several days and did not really respond to the steroids that were given to him. Over the last few days, he is still not really minimally moving his legs. He is not able to verbalize well, but essentially, there was no response to the steroids essentially several days. So, discussion with Dr. Murrell and myself he will benefit in terms of him getting any ambulation back. Radiation therapy to the back would help the pain situation symptoms, but it is very unlikely to bring back his function considering that was several days. She said that family would be discussing managed with her afterwards see how far they want to take it. In the meantime, we need a biopsy of the lesion to determine what kind of cancer this is and what the treatment might be for this; however, symptom control and hospice is not an unreasonable approach. So at this point, we are awaiting a biopsy finalized awaiting whether he needs radiation therapy symptom of pain control versus benefiting his neurologic condition which is unlikely to help as far as surgery for this lesion, also he has many other elements to his case. Dominick Hernandez MD
[2018-01-22] MEDS: Cefepime 1gm in NS 100ml 1 GM/100 ML BAG IVPB SCH ×3 (05:27→21:57)
[2018-01-22] MEDS: Sodium Chloride 0.9% 1,000 ML IV SCH ×2 (05:27→23:16)
[2018-01-22] MEDS: Insulin Reg-MEDIUM-Coverage SC SCH ×4 (07:35→22:22)
--- NOTE | 2018-01-22 09:11 | PN ---
DATE: 01/21/2018 CRITICAL CARE PROGRESS NOTE SUBJECTIVE: This 72-year-old male was examined at his bedside in the [facility]. The patient was in ICU bed 5. The patient is status post right upper posterior lung CT-guided biopsy on the afternoon of , 01/20/2018 under the direction of Dr. Miguel De La Cruz. The pathology report is pending at present. According to nursing, the patient is on schedule for lung and T3 vertebral body radiation after my discussion with his regarding his multiple medical problems. At present, the patient remains chronically confused, minimally verbal and in pain when attempting to move any body limb, however, there have been no reports of fever, chills or hemoptysis. PHYSICAL EXAMINATION: VITAL SIGNS: On physical exam, temperature was 97.4, respirations 21, pulse 79, pulse ox 95% on 2 liters nasal O2 with a blood pressure of 117/46. HEAD: Normocephalic, atraumatic. EYES: No icterus. EARS: Clear. THROAT: Noninjected. NECK: Supple. HEART: Was regular S1, S2. No pathological rubs, murmurs or gallops. LUNGS: Have occasional rhonchi that improve with coughing. ABDOMEN: Obese, nontender. No palpable organomegaly. No rebound, no guarding. No tenderness. EXTREMITIES: No edema. SKIN: Without rash. NEUROLOGICAL: He is able to move all four extremities, both arms voluntarily above his head and both legs to tactile stimulus. VASCULAR: Legs warm to touch. PSYCHOLOGICAL: Chronic confusion, minimally verbal. LABORATORY DATA: White count 15,000, hemoglobin 12.1, hematocrit 36.6, platelets 155,000. Sodium 145, K 3.9, chloride 117, bicarb 24, BUN 39, creatinine 0.8, random blood sugar 163 earlier 127, phosphorus 3.7, magnesium 2.3. Bilirubin 0.5, AST 39, ALT 65 and alk phos 90. Blood and urine culture show no growth at present. MRSA was not detected on nasal swab. Abdominopelvic CT was reviewed. This report was performed on , 01/20/2018. It shows no evidence of metastatic disease. Of note, the liver is unremarkable with no gross lesions or ductal dilatation. His gallbladder is unremarkable. The pancreas shows no lesion or ductal dilatation. There is a 15 x 20 mm adrenal nodule on his right. The kidney showed no hydronephrosis, no solid masses. His bowel shows mild mural thickening of the ascending colon suspicious for colitis. Appendix is unremarkable. Bladder is unremarkable. There are no enlarged lymph nodes noted and the impression is no obvious metastatic disease in this gentleman who had a CT of abdomen and pelvis with no p.o. or IV contrast. IMPRESSION: A 72-year-old male with newly noted right upper lung posterior located lung mass invading into T3 vertebral body who presented with upper and lower body weakness with history of chronic obstructive pulmonary disease, greater than [id number] history of cigarette smoking, multiple sclerosis, degenerative arthritis, prostate cancer history, treated with radiation therapy and history of organic brain syndrome. PLAN: The plan at present is to continue Aricept 10 mg p.o. at bedtime, heparin 5000 units subcu every 8, Humulin or medium protocol insulin coverage before meals and at bedtime, Maxipime 1 g IV every 8, Protonix 40 mg IV daily, Solu-Medrol 60 mg IV every 8, vancomycin 1 g IV every 12. The patient is ordered to have a pureed diet with aspiration precautions. We are awaiting pathology report of CT-guided lung biopsy. He is wearing nasal O2. He remains on fall precautions. I have asked the nursing staff to get this patient out of bed and to order physical therapy for bedside evaluation of rehabilitative effort that would be appropriate. Based on his clinical progress, additional diagnostic workup and testing will be entertained. He will be receiving radiation therapy as directed by Dr. Kristi Murrell from Radiation Oncology and this case will be monitored by Dr. Martin Pedroza from Neurosurgery and Dr. Dominick Hernandez from Hematology/Oncology. Overall prognosis though poor, remains stable at present. Greater than 35 minutes was spent in the care management, review of labs, orders and x-rays and discussion of this patient's progress with himself, his Silvina Be and nursing. All questions were answered. Jasmin Dominique MD [facility]ITALMartita
[2018-01-22] MEDS: Vancomycin 1gm in NS 250ml 1 GM/250 ML BAG IVPB SCH ×2 (11:19→23:17)
[2018-01-23] MEDS: Insulin Reg-MEDIUM-Coverage SC SCH ×4 (07:30→22:20)
[2018-01-23] MEDS: GILENYA 0.5 MG PO SCH (16:52)
[2018-01-24] MEDS: Insulin Reg-MEDIUM-Coverage SC SCH ×4 (08:52→22:24)
[2018-01-24] MEDS: GILENYA 0.5 MG PO SCH (09:57)
--- NOTE | 2018-01-24 11:15 | PN ---
DATE: 01/22/2018 SUBJECTIVE: This 72-year-old male was examined on the medical rene on 01/22/2018 and his case was reviewed in detail with nurse, Laura Suarez, registered nurse. The patient remains bed-bound. He did have one radiation therapy treatment on 01/21/2018. He remains weak and deconditioned and needs assistance with all activities of daily living. He denied any fever, chills, chest pain or shortness of breath. PHYSICAL EXAMINATION: VITAL SIGNS: ON physical exam was noted to have a temperature of 97.6, respirations 20, pulse 64 and blood pressure 127/68. Pulse ox 90% on room air. HEENT: Head: Normocephalic, atraumatic. Eyes: No icterus. Ears: Clear. THROAT: Noninjected. NECK: Supple. HEART: Regular S1, S2. LUNGS: With occasional rhonchi that cleared with coughing. ABDOMEN: Obese. EXTREMITIES: No edema. SKIN: Without rash. NEUROLOGICAL: Unchanged. PSYCHOLOGICAL: Chronic anxiety. VASCULAR: Legs warm to touch. LABORATORY DATA: White count 15,000, hemoglobin 12.1, hematocrit 36.6, platelets 155,000. Random blood sugar 123. Blood, urine and MRSA nasal cultures all negative. IMPRESSION: A 72-year-old male with newly noted right posterior lung mass encroaching on his T3 vertebral body causing marked weakness of the lower extremities in the setting of organic brain syndrome and chronic multiple sclerosis as well as chronic obstructive pulmonary disease. PLAN: The plan at present is to continue Aricept 10 mg p.o. at bedtime, heparin 5000 units subcu every 8 given bedridden status for DVT prophylaxis. He will continue his Gilenya 0.5 mg p.o. daily dosing from home daily for his multiple sclerosis. He is on regular Humulin insulin coverage before meals and at bedtime, Protonix 40 mg IV daily and Solu-Medrol 60 mg IV every 8. As discussed with his , he will continue on a pureed thick liquid diet. He is awaiting consultation by Dr. Darryl Herman from Neurology. Physical Therapy has declined any intervention until cleared by Neurology and Neurosurgery and he will need to complete radiation therapy and await results of CT-guided lung biopsy to determine further recommendations of his probable lung cancer with mets to his twelfth rib. All of the above was discussed in detail with the patient, family, nursing and his . Greater than 35 minutes was spent in the care and review and discussion of this patient's situation with all of the above. All questions were answered. Jasmin Dominique MD [facility]
--- NOTE | 2018-01-24 12:19 | PN ---
DATE OF EXAM: 01/23/2018 SUBJECTIVE: This 72-year-old male was examined at his bedside and his case was reviewed in detail with nurse, Laura Suarez, registered nurse. The patient remains weak and deconditioned and bedridden at present in the setting of a newly noted right posterior lung mass that is encroaching on his T3 vertebral body. The patient received one round of radiation therapy thus far and is receiving assistance with all activity of living needs given his bedridden status. The patient is alert. Denies any fever, chills, chest pain or shortness of breath. PHYSICAL EXAMINATION: GENERAL: On physical exam was able to answer all questions appropriately. VITAL SIGNS: Temperature 97.8, respirations 20, pulse 65 and blood pressure 151/86 with a pulse ox of 99% on room air. HEENT: Head: Normocephalic, atraumatic. Eyes: No icterus. Ears: Clear. Throat: Noninjected. NECK: Supple. HEART: Regular S1, S2. LUNGS: With occasional rhonchi that cleared with coughing. ABDOMEN: Soft. EXTREMITIES: No edema. SKIN: Without rash. NEUROLOGICAL: Marked weakness of both lower extremities. He is able to move his both upper arms. SKIN: No ulcers. PSYCHOLOGICAL: Chronic anxiety. IMPRESSION: A 72-year-old male with chronic multiple sclerosis, organic brain syndrome, Alzheimer's dementia, chronic obstructive pulmonary disease, now awaiting results of CT-guided lung biopsy on newly noted right posterior lung mass now encroaching on his T3 vertebral body causing marked lower extremity weakness and immobility. PLAN: The plan at present is to continue Aricept 10 mg p.o. at bedtime, heparin 5000 units subcu every 8. He continues Gilenya 0.5 mg p.o. daily, regular medium insulin coverage protocol before meals and at bedtime, Protonix 40 mg IV daily, Solu-Medrol 60 mg IV every 8, nasal O2 p.r.n. A pureed thick liquid diet with aspiration precautions. The patient is wearing Multi-Podus boots at all times. He is out of bed to chair with assistance. He is on an air mattress. He remains on fall protocol and is awaiting consultation by Dr. Darryl Herman regarding adjustment of medications and clearance when able for physical therapy at bedside. All of the above was reviewed with nursing. All questions were answered. Jasmin Dominique MD [facility]
[2018-01-24] MEDS ORDERED: Levalbuterol 0.63 MG/3 ML Inhal Soln UD IH PRN ×2 (13:43→13:45)
--- NOTE | 2018-01-24 14:10 | CON ---
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 According to the family, he was able to stand with assistance prior and then Wednesday, he was acutely noticed to not able to move his lower extremities as much and also has some shortness of breath. His CAT scan of the head was negative. He had a CT scan of the chest on 01/19/2018 revealing a right upper lung mass adjacent to the spine measuring 2.6 x 4.3 cm and invasion of the T3 vertebral body with extension of the neuroforamen and epidural invasion on the right side of the canal. He had a bone lesion at T3 and a lytic lesion on the right proximal twelfth rib. He is currently on high-flow oxygen and steroids. He went for palliative radiation in regards to the mass. Radiation oncology is on board. He does have lower extremity weakness. Does not move the toes. Has increased tone in his lower extremities from his underlying MS, but unable to lift his legs, feels heavy of his legs. He is cognitively slow from his underlying MS. He is on Gilenya for his multiple sclerosis. Since it has been a few days prior to this hospital, his neurological symptoms are unlikely that he would have complete reversal. He is on steroids currently and has been tapered down to 40 mg IV every 6 and over the course of the day, would taper down to 20 every 4 and off. PAST MEDICAL HISTORY: As above. SOCIAL HISTORY: No illicit drug use, smoking or EtOH abuse. ALLERGIES: NO KNOWN DRUG ALLERGIES. MEDICATIONS: Reviewed by nurses' reconciliation sheet. FAMILY HISTORY: Noncontributory. REVIEW OF SYSTEMS: Fourteen-point review of systems is negative except as per the HPI. LABORATORY DATA: Blood sugar today is 110. PHYSICAL EXAMINATION: VITAL SIGNS: Temperature 98, pulse rate of 64, blood pressure 129/90, respiratory rate of 20, oxygen saturation 95% by room air. GENERAL: The patient is sitting up in bed, no acute distress. HEENT: Atraumatic, normocephalic. PERRLA. Extraocular muscles intact. NECK: Supple. No JVD. No adenopathy noted. LUNGS: Decreased breath sounds bilaterally. ABDOMEN: Soft, nontender and nondistended. Bowel sounds are present. EXTREMITIES: No clubbing. No cyanosis. Peripheral pulses 2+ felt bilaterally. NEUROLOGIC: The patient is alert and oriented to person and place. Recall after 5 minutes is 0/3. Poor attention span. Slow thought process. He is cognitively slow. Speech is hypophonic. No aphasia noted. Cranial nerves II through XII are intact. Motor exam: Slightly increased tone throughout in the upper extremities and some mild increased tone in the lower extremities. Otherwise, motor exam, moves all upper extremities, but limited movement of the lower extremities. Wiggles his toes, but unable to lift up the legs up from the bed, which is most likely 1/5 in the lower extremities. Mild upper extremity tremors, which is likely from his multiple sclerosis. DTRs are 2+ throughout and 1 at both knees and ankles. Coordination: [id number] intact. No dysmetria noted. Gait is deferred for now. ASSESSMENT AND PLAN: This is a 72-year-old man with past medical history of chronic obstructive pulmonary disease, multiple sclerosis with cognitive impairment and his multiple sclerosis seems more progressive type. He is on Gilenya. History of prostate cancer, status post treatment with a new lung mass with invasion to the T3 vertebral body as well as a lytic lesion at T3 vertebra as well as the twelfth rib. Undergoing palliative radiation therapy for possible metastatic workup. He had a CT abdomen and pelvis, which showed no evidence of metastatic disease in the colon. CAT scan of the head showed no acute intracranial abnormalities. His bilateral lower extremity weakness is secondary to a right upper lung mass with invasion of the spinal canal. There is also evidence of bony metastatic disease and lytic lesion on the twelfth rib, which is findings are consistent with metastatic lung carcinoma. At this time, 1. We will continue with Solu-Medrol and reduce to 40 mg IV every 6 and eventually taper it down to 20 IV every 6 and off. 2. Keep his blood sugars between 140 to 180. 3. Continue with Gilenya, which is his disease modifying medication for his multiple sclerosis. 4. MRI of the thoracic spine with and without contrast to assess the extent of bony mass and lung mass invasion of the spinal canal and to see if there is any debulking required by Neurosurgery. 5. MRI of the cervical spine as well as the brain with and without contrast to see the extent of his multiple sclerosis. 6. He will need physical and occupational therapy. He is cleared to start with early mobilization. 7. Continue with palliative radiation and oncology followup in regards to his lung mass. Once again, thank you for this consult. Darryl Herman MD
[2018-01-24] MEDS: MethylPREDNISolone 40 mg Vial IVP SCH ×3 (14:47→23:00)
[2018-01-24] MEDS: Levalbuterol 0.63 MG/3 ML Inhal Soln UD IH SCH (20:51)
[2018-01-25] MEDS: MethylPREDNISolone 40 mg Vial IVP SCH ×4 (06:28→22:21)
[2018-01-25] MEDS: Levalbuterol 0.63 MG/3 ML Inhal Soln UD IH SCH ×3 (07:21→20:01)
[2018-01-25] MEDS: Insulin Reg-MEDIUM-Coverage SC SCH ×4 (07:30→22:06)
[2018-01-25] MEDS: GILENYA 0.5 MG PO SCH (12:35)
--- NOTE | 2018-01-25 12:54 | PN ---
DATE: 01/25/2018 HISTORY OF PRESENT ILLNESS: This is a 72-year-old man who has radiologic diagnosis of lung cancer eroding into the T3 region and on x-ray has probable 12th rib lesion. The right upper lobe mass is about 4.3 cm with invasion to T3. The patient is really uncommunicative. PHYSICAL EXAMINATION: LUNGS: He is able to lie flat in bed, however, not short of breath. LYMPH NODES: No mass supraclavicular, inguinal regions not prominent. HEART: S1 and S2. ABDOMEN: Shows no liver, no spleen, no tenderness. EXTREMITIES: Shows no edema, no DVT. LABORATORY DATA: CAT scan of the abdomen and pelvis does not show metastasis to the liver, spleen etc., and kidneys. Brain, mets negative. I will do a bone scan because the only distant mets seems to be the 12th rib, which is found to rule out other lesions. ASSESSMENT AND PLAN: The daughter called me yesterday to ask what his situation is, I differed, I will probably talk to her today. I still do not have the biopsy report back yet that was done on 01/20. I will explain to her that we are waiting for conformation of the cancer, what kind, whether it is adeno or small cell, then also we will have to ask for the mutation study could be done and that will take at least 2 weeks. In the meantime, he is getting radiation therapy to the thoracic spine, this is mostly to help the pain control. There was a period of time where he was paralyzed and for he came to the hospital and also he had no real response to the steroids. So it is most unlikely that the radiotherapy will help him walk. The purpose is really to help the pain control. At this point, I am waiting for the biopsy reports. I ordered a bone scan to rule out any of the metastasis to confirm in the 12th rib. Dominick Hernandez MD
--- NOTE | 2018-01-25 13:16 | PN ---
DATE: 01/25/2018 SUBJECTIVE: This 72-year-old male remains hospitalized, receiving daily radiation therapy to a right posterior lung mass with extension to the T3 vertebral body. The patient remains weak and deconditioned, is bed bound, was seen by Dr. Darryl Herman from Neurology who has recommended that the patient be placed out of bed to chair and started on physical therapy for mobility, transfer, so the patient can retain wheelchair safety. PHYSICAL EXAMINATION: GENERAL: He denies any fever, chills, chest pain, or shortness of breath. VITAL SIGNS: Temperature is 98.4, respirations 18, pulse 72, and blood pressure 153/28, previously 117/58 with a pulse ox of 94%. HEENT: Head: Normocephalic, atraumatic. Eyes: No icterus. Ears: Clear. Throat: Noninjected. NECK: Supple. HEART: Regular S1, S2. LUNGS: With occasional rhonchi that clear with coughing. ABDOMEN: Soft. EXTREMITIES: Decreased edema. SKIN: Without rash. NEUROLOGICAL: Unchanged. PSYCHOLOGICAL: Alert and anxious. VASCULAR: Legs warm to touch. LABORATORY DATA: Random blood sugar 116. IMPRESSION: A 72-year-old male with chronic multiple sclerosis, wheelchair-bound prior to this admission, now with a newly-noted right posterior lung mass extending into his T3 vertebral body, causing worsening lower extremity weakness with comorbidities of organic brain syndrome, Alzheimer dementia, anxiety, muscle spasms, steroid-induced hyperglycemia, degenerative arthritis, and anemia of chronic illness. PLAN: To continue Xopenex inhalational therapy three times daily and every 6 hours p.r.n. with pain to be handled with Tylenol 650 p.o. every 6 hours for [id number] pain and Ultracet 1 tablet p.o. every 6 hours p.r.n. severe pain. He has had his Solu-Medrol decreased to 40 mg IV every 6 hours. He continues on Protonix 40 mg IV daily. He will have Humulin R medium insulin coverage before meals and at bedtime and continue on Gilenya 0.5 mg p.o. at bedtime for his chronic multiple sclerosis management. He will maintain heparin 5000 units subcu every 8 hours while bedridden, Flexeril 5 mg p.o. at bedtime p.r.n. muscle spasm, and Aricept 10 mg p.o. at bedtime for Alzheimer dementia modification. I am awaiting the results of his lung biopsy. He is scheduled for thoracic spine, cervical spine, and brain MRIs. A bone scan has been ordered as well. He continues on nasal O2, a pureed thin liquid diet with aspiration precautions, and he is wearing Multi-Podus boots. He is scheduled to be out of bed to chair, air mattress while in bed, fall protocol, and for physical therapy at bedside. All of the above was discussed with nursing, family, and case management. All questions were answered. Jasmin Dominique MD MTDD
[2018-01-25] MEDS: Morphine 4 mg/ml ISec IVP PRN (14:38)
--- NOTE | 2018-01-25 15:10 | PN ---
DATE: 01/24/2018 MEDICAL PROGRESS NOTE SUBJECTIVE: This 72-year-old male was remains hospitalized in 565, bed 1 at the [facility] on 01/24/2018. He is currently scheduled for radiation to his T3 vertebral mass that extends from his right posterior lung. I have discussed this case in detail with Dr. Darryl Herman from Neurology. He is aware that the patient has chronic multiple sclerosis, on Gilenya and was non ambulatory prior to this event. It is his recommendation that the patient continue on IV Solu-Medrol 40 mg IV every 6 hours, which will be tapered down by him to 20 mg IV every 6 hours and then discontinued. He concurs with current Gilenya medication and has recommended an MRI of the thoracic spine at this time since the patient is more stable to better assess the extent of the bony mass and lung mass invasion of his spinal canal and to see if there is any debulking required by Neurosurgery. He has also recommended an MRI of the cervical spine as well as the brain with and without contrast to see the extent of his multiple sclerosis and is ordered physical and occupational therapy to be started at present as well as continuing palliative radiation with oncology followup regarding the lung mass. PHYSICAL EXAMINATION: Today; VITAL SIGNS: The patient's temperature was 98.6, respirations 20, pulse 69 and blood pressure 117/50 with a pulse ox of 96% on 2 liters nasal O2. HEENT: Head: Normocephalic, atraumatic. Eyes: No icterus. Ears: Clear. Throat: Noninjected. NECK: Supple. HEART: Regular S1, S2. LUNGS: Clear with occasional rhonchi that cleared with coughing. ABDOMEN: Soft. EXTREMITIES: Trace edema. SKIN: Without rash. NEUROLOGICAL: Unchanged. PSYCHOLOGICAL: Alert and anxious. VASCULAR: Legs warm to touch. LABORATORY DATA: Random blood sugar was 114. IMPRESSION: This 72-year-old male with exacerbation of chronic obstructive pulmonary disease and a newly noted right posterior lung mass with extension into his T3 vertebral body on the right and comorbidities of organic brain syndrome, Alzheimer's dementia, chronic anxiety, muscle spasms, immobility chronically, now with insulin-dependent diabetes mellitus and degenerative arthritis, hyperglycemia related to steroids and anemia of chronic disease, history of prostate cancer, chronic obstructive pulmonary disease and a 90 pack-year smoking history. PLAN: The plan as discussed with the patient, family, nursing and Dr. Darryl Herman will be to continue Aricept 10 mg p.o. at bedtime and Flexeril 5 mg p.o. at bedtime p.r.n. muscle spasms. He will continue on heparin 5000 units subcu every 8 hours while immobilized and continue Gilenya 0.5 mg p.o. at bedtime. He continues on Humulin R medium insulin protocol a.c. meals and at bedtime, Protonix 40 mg IV daily, Solu-Medrol 40 mg IV every 6 hours, Ultracet one p.o. every 6 hours p.r.n. severe pain, Tylenol 650 p.o. every 6 hours p.r.n. [id number] pain and Xopenex inhalational therapy three times daily and every 6 hours p.r.n. shortness of breath. He continues on a pureed thin liquid diet as recommended by Speech Pathology. He is receiving radiation therapy daily. His lung biopsy pathology remains pending and he is scheduled for thoracic spine, cervical spine MRI as well as brain without and with gadolinium. He is ordered to have a bone scan by Dr. Dominick Hernandez to rule out mets. He continues on nasal O2. He is wearing Multi-Podus boots. He is ordered to be out of bed to chair and to have an air mattress while in bed while remaining on fall protocol and physical therapy for strengthening exercises at the bedside. I have also requested his nurse, Alhaji Murphy. Request the midline PICC, team to place an IV and patient to be given Lasix 20 IV x1 dose and K-Dur 20 mEq p.o. x1 dose for anasarca related to steroids. Greater than 35 minutes was spent in the care management, review of labs, orders, x-rays and discussion of this patient with Oncology, Physical Therapy, Speech Pathology and Dr. Darryl Herman from Neurology as well as nursing and case management. All questions were answered. Jasmin Dominique MD MAJO
--- NOTE | 2018-01-25 16:36 | NM ---
Date of service: 01/25/2018 PROCEDURE: Whole Body Bone Scan HISTORY: r/o mets COMPARISON: 01/19/2018 CT thorax TECHNIQUE: Following administration of 26.4 miCu of Tc MDP multiplanar whole body images were obtained. FINDINGS: Evidence for bony metastatic disease: None. Degenerative uptake: Right knee Physiologic uptake: Normal physiologic activity in the kidneys. Other findings: None. IMPRESSION: No evidence of bony metastatic disease.
[2018-01-26] MEDS: MethylPREDNISolone 40 mg Vial IVP SCH ×4 (06:06→23:14)
[2018-01-26] MEDS: Levalbuterol 0.63 MG/3 ML Inhal Soln UD IH SCH ×3 (07:07→19:50)
[2018-01-26 07:19] LABS: HEMOGLOBIN 12.9 g/dL (14.0-18.0); MEAN CELL VOLUME 88.4 fl (80.0-105.0); MEAN CORPUSCULAR HEMOGLOBIN 29.9 pg (25.0-35.0); MEAN CORPUSCULAR HGB CONC 33.8 g/dl (31.0-37.0); MEAN PLATELET VOLUME 10.7 fl (7.0-11.0); RBC 4.32 10^6/uL (3.5-6.1); RED CELL DISTRIBUTION WIDTH 13.9 % (11.5-14.5); WHITE BLOOD COUNT 11.6 10^3/ul (4.5-11.0)
[2018-01-26] MEDS: Insulin Reg-MEDIUM-Coverage SC SCH ×3 (07:45→16:47)
[2018-01-26 07:46] LABS: BLOOD UREA NITROGEN 30 mg/dL (7-21); CALCIUM 7.9 mg/dL (8.4-10.5); GFR NON-AFRICAN AMERICAN > 60
[2018-01-26] MEDS: GILENYA 0.5 MG PO SCH (10:17)
[2018-01-26] MEDS: Pantoprazole 40 mg Susp UD PO SCH (10:20)
[2018-01-26] MEDS: Morphine 4 mg/ml ISec IVP PRN ×2 (10:20→14:12)
--- NOTE | 2018-01-26 13:21 | PN ---
DATE: 01/26/2018 SUBJECTIVE: This 72-year-old male is receiving daily radiation therapy in the setting of a newly noted right posterior lung mass that on biopsy is consistent with carcinoma, but as per discussion with pathologist, Dr. Hernandez this morning it is unclear whether this is adeno or squamous cell carcinoma. Additional stains and markers will be done to make this determination within the next 48 hours, but the patient is tolerating radiation therapy to his T3 thoracic spine region. There have been no reports of fever, chills, chest pain or shortness of breath and the patient is scheduled for MRI of his brain, cervical and thoracic spine later today. I did discuss with the physical therapist for him to speak with Dr. Darryl Herman about when and what type of physical therapy can be resumed for this patient who is essentially nonambulatory, but in need of transfer mobility for discharge planning, which will be to home when stable. PHYSICAL EXAMINATION: VITAL SIGNS: His temperature is 98, respirations 18, pulse 62 and blood pressure 141/25 with a pulse ox of 95% on room air. HEENT: Head normocephalic, atraumatic. Eyes: No icterus. Ears: Clear. Throat: Noninjected. NECK: Supple. HEART: Regular S1, S2. LUNGS: Clear. ABDOMEN: Soft. EXTREMITIES: No edema. SKIN: Without rash. NEUROLOGICAL: Unchanged. PSYCHOLOGICAL: Alert. VASCULAR: Legs warm to touch. LABORATORY DATA: White count 11,600, hemoglobin 12.9, hematocrit 38.2, platelets 196,000. Sodium 137, K 4.1, chloride 106, bicarb 27, BUN 30, creatinine 0.7, random blood sugar 115, calcium 7.9. Blood, urine culture showed no growth. Nasal MRSA shows none detected. Bone scan was reviewed. It shows no evidence of bony mets. IMPRESSION: A 72-year-old male, admitted with exacerbation of chronic obstructive pulmonary disease with a newly noted right upper posterior lung mass that on CT-guided biopsy is consistent with malignancy, exact type to be determined by further pathological studies with comorbidities of advanced multiple sclerosis, nonambulatory chronic status, organic brain syndrome, steroid-induced diabetes mellitus, degenerative arthritis, chronic anxiety neurosis. PLAN: The plan at present is to continue Aricept, p.r.n. Ativan, Flexeril p.r.n., subcu heparin, Gilenya for multiple sclerosis, Humulin R medium insulin coverage before meals and at bedtime, morphine p.r.n. severe pain, Protonix prophylaxis 40 mg p.o. daily, Solu-Medrol 40 mg IV every 6 hours, Tylenol and Ultracet p.r.n. severe pain, inhalational Xopenex and physical therapy when able as per Dr. Darryl Herman. As discussed with Dr. Dominick Hernandez, based on his tumor markers, radiation, chemo or immunotherapy will be entertained. The patient's overall prognosis remains poor, but the patient will be treated in a conservative compassionate way. All of the above was discussed in detail with Dr. Dominick Hernandez from Hematology/Oncology, Dr. Darryl Herman, the patient, and nursing as well as physical therapy. Greater than 35 minutes was spent in the management of this patient today. All questions were answered. Jasmin Dominique MD MTDD
[2018-01-26] MEDS ORDERED: Gadodiamide 287 MG/ML VIAL (15ML) IV ONE (15:45)
--- NOTE | 2018-01-26 17:05 | CP.PCM.PCO ---
Physician Communication Note - Physician Communication Note Physician Communication Note: mris pending, will reveiw once completed. neurosurg f/u needed.
[2018-01-27] MEDS: MethylPREDNISolone 40 mg Vial IVP SCH ×4 (06:16→23:03)
[2018-01-27] MEDS: Insulin Reg-MEDIUM-Coverage SC SCH ×3 (07:50→16:58)
[2018-01-27] MEDS: Levalbuterol 0.63 MG/3 ML Inhal Soln UD IH SCH ×4 (08:41→19:20)
[2018-01-27] MEDS: GILENYA 0.5 MG PO SCH (10:04)
[2018-01-27] MEDS: Pantoprazole 40 mg Susp UD PO SCH (10:07)
[2018-01-27] MEDS: Morphine 4 mg/ml ISec IVP PRN ×2 (10:53→18:04)
--- NOTE | 2018-01-27 11:03 | MRI ---
Date of service: 01/26/2018 PROCEDURE: MRI BRAIN WITH AND WITHOUT CONTRAST HISTORY: ms w lung ca COMPARISON: None available. TECHNIQUE: Multiplanar, multisequence MR images of the brain were obtained with and without intravenous contrast enhancement. 15 cc of Omniscan FINDINGS: HEMORRHAGE: None DWI: No evidence of an acute or early subacute infarction. BRAIN PARENCHYMA: There is severe atrophy and severe chronic white matter disease consistent with a history of multiple sclerosis. There thinning of the corpus callosum. ENHANCEMENT: No evidence of metastatic disease VENTRICLES: Unremarkable. No hydrocephalus. CRANIUM: Unremarkable. ORBITS: Grossly unremarkable. PARANASAL SINUSES/MASTOIDS: Clear VASCULAR SYSTEM: Skull base flow voids intact. OTHER FINDINGS: The report concurs with the preliminary [facility] report. IMPRESSION: Severe atrophy and severe chronic white matter disease consistent with the history of multiple sclerosis. No evidence of enhancing metastatic disease
[2018-01-27] MEDS ORDERED: MethylPREDNISolone 40 mg Vial IVP SCH (12:00)
--- NOTE | 2018-01-27 12:24 | MRI ---
Date of service: 01/26/2018 PROCEDURE: MR THORACIC SPINE WITH AND WITHOUT CONTRAST HISTORY: r/o cord compression COMPARISON: CT chest 01/19/2018 TECHNIQUE: Multiecho multiplanar sequences were performed through the thoracic spine with and without the use of intravenous contrast. 15 cc of Omniscan FINDINGS: ALIGNMENT: Normal thoracic spinal alignment. Normal thoracic kyphosis. VERTEBRA: As seen on the recent CT of the chest there is a right-sided paraspinal mass at the T3 level measuring 2 x 5 cm. The mass invades the vertebral body and extends into the right side of the epidural space with compression of the cord and cord edema. There is also invasion of the T2 and T4 vertebral body. There is a separate metastatic lesion at T6 MARROW: As above PARASPINAL SOFT TISSUES: As above CORD: There compression of the cord and cord edema at T3 DISCS: No disc herniation, spinal canal stenosis, or neuroforaminal narrowing. ENHANCEMENT: Minimal enhancement of the mass. OTHER FINDINGS: The report concurs with the preliminary [facility] report IMPRESSION: As seen on the recent CT of the chest there is a right-sided paraspinal mass at the T3 level measuring 2 x 5 cm. The mass invades the vertebral body and extends into the right side of the epidural space with compression of the cord and cord edema. There is also invasion of the T2 and T4 vertebral body. There is a separate metastatic lesion at T6
--- NOTE | 2018-01-27 12:30 | MRI ---
Date of service: 01/26/2018 PROCEDURE: MR CERVICAL SPINE WITH AND WITHOUT CONTRAST HISTORY: ms lung w ca COMPARISON: MRI of the thoracic spine performed on the same day TECHNIQUE: Multiecho multiplanar sequences were performed through the cervical spine with and without the use of intravenous contrast. 15 cc of Omniscan FINDINGS: Normal lordotic curvature. Craniocervical junction unremarkable. Vertebral body heights preserved. As reported on the thoracic spine exam there is a metastatic lesion with cord compression at T3 with involvement of the adjacent vertebral bodies. There are no metastatic lesions seen in the cervical spine and no compression of the cervical cord. Normal cervical cord. No paraspinal abnormality. No abnormal enhancement OTHER FINDINGS: The report concurs with the preliminary [facility] report IMPRESSION: As reported on the thoracic spine exam there is a metastatic lesion with cord compression at T3 with involvement of the adjacent vertebral bodies. There are no metastatic lesions seen in the cervical spine and no compression of the cervical cord.
--- NOTE | 2018-01-27 15:57 | PN ---
DATE: 01/27/2018 CHIEF COMPLAINT: Follow up for paraplegia. SUBJECTIVE: Currently, MRI of the brain has been reviewed. MRI of the brain showed severe atrophy and severe chronic white matter disease consistent with history of multiple sclerosis, but no evidence of any enhanced metastatic disease. MRI of C-spine failed to show any evidence of any demyelinating disease or any impingement of the cervical cord. MRI of his thoracic spine with and without contrast showed right-sided paraspinal mass at T3 level measuring 2 x 5 cm. The mass invades the vertebral body extending into the right side of the epidural space with compression of the cord and the cord edema. There is also invasion of T2 and T4 vertebral body and there is a separate metastatic lesion at T6. Case discussed with primary care. I have tapered down his steroids to Solu-Medrol 20 mg IV every 4 hours now and will keep that for 2 days and will eventually stop his steroid medication with the Medrol Dosepak. Her is on tramadol for acute onset of pain. PAST MEDICAL HISTORY: History of multiple sclerosis, on Gilenya; COPD; degenerative arthritis; wheelchair bound; dementia from underlying MS. FAMILY HISTORY: Noncontributory. ALLERGIES: NO KNOWN DRUG ALLERGIES. SOCIAL HISTORY: No illicit drug use, smoking, or EtOH abuse. MEDICATIONS: Reviewed by nurse's reconciliation sheet. REVIEW OF SYSTEMS: Fourteen-point review of systems is negative except as per the HPI. LABORATORY DATA: Today, his blood sugar is 135, calcium 7.9. PHYSICAL EXAMINATION: VITAL SIGNS: Temperature 97.3, pulse rate of 65, blood pressure 130/61, respiratory rate of 18, oxygen saturation 93% by room air. GENERAL: Patient seen lying in bed, in no acute distress. HEENT: Head atraumatic, normocephalic, PERRLA. Extraocular muscles intact. NECK: Supple. No JVD. No adenopathy. LUNGS: Decreased breath sounds bilaterally. ABDOMEN: Soft, nontender, nondistended, bowel sounds present. EXTREMITIES: No clubbing, no cyanosis. Peripheral pulses 2+ felt bilaterally. NEUROLOGIC: The patient is alert and oriented to person and place. Recall after 5 minutes is 0/3. Poor attention span. Slow thought process. He is cognitively slow. Speech is hypophonic. No aphasia noted. Cranial nerves II through XII are intact. Motor: Slightly increased tone throughout in the upper extremities and some mild increased tone in the lower extremities. Otherwise, motor exam, moves all upper extremities, but limited movement of the lower extremities. Just wiggles his toes slightly. He is unable to lift up the legs up from the bed, which is most likely 0 to 1-/5 in the lower extremities. Mild upper extremity tremors, which is likely from his multiple sclerosis. DTRs are 2+ throughout and 1 at both knees and ankles. Coordination: [id number]-frrs intact. No dysmetria noted. Gait is deferred for now. ASSESSMENT AND PLAN: This is a 72-year-old man with past medical history of chronic obstructive pulmonary disease, multiple sclerosis with cognitive impairment. His history of multiple sclerosis is more progressive type. He is on Gilenya for disease modifying therapy, history of prostate cancer, status post treatment with a new lung mass invasion at the T3 vertebral body as well as a likely lesion at T3 as well as the 12th rib, undergoing palliative radiation therapy for metastatic disease. He underwent an MRI of the brain which showed diffuse atrophy with chronic white matter lesions consistent with chronic multiple sclerosis and no evidence of any new lesions. He underwent an MRI of the C-spine which showed no cervical abnormalities or no evidence of demyelinating disease, but he had an MRI of the thoracic spine which showed a right-sided paraspinal mass at the T3 level measuring 2 x 5 cm, the mass invades the vertebral body and extends into the right side of the epidural space with compression of the cord and cord edema. There is also invasion of the T2 and T4 vertebral bodies and as well as separate metastatic lesion at T6 which are causing his symptom of paraplegia. In addition, he has right upper lung mass with invasion on the spinal canal, possibly secondary to metastatic lung carcinoma. At this time: 1. We have tapered Solu-Medrol now to 20 mg IV every 4 hours and will taper off in 2 days with a following by Medrol Dosepak. 2. Keep his blood sugars between 140 to 180. 3. Continue with Gilenya for disease modifying therapy for his MS. 4. In regards to paraplegia from cord compression from the right-sided paraspinal mass invading the epidural space, will need neurosurgery's evaluation if debulking is required and what type of physical therapy or movement can the patient do and we need that documented. At this time, continue with PT, OT, and palliative radiation oncology followup for his lung mass and metastatic cancer. Thank you for this followup. Darryl Herman MD
--- NOTE | 2018-01-27 16:41 | PN ---
DATE: 01/27/2018 SUBJECTIVE: This 72-year-old male is receiving daily radiation therapy to T3 vertebral spine spinal cord cancer as an extension of his newly noted right posterior upper lung mass, which on biopsy is consistent with lung cancer. To date, it is not clear whether this is adeno or squamous cell carcinoma, but the patient nonetheless is receiving radiation therapy daily. Thoracic spine MRI was reviewed. It shows a right-sided paraspinal mass at the T3 level measuring 2 x 5 cm. The mass invades the vertebral body and extends into the right side of the epidural space with compression of the cord and cord edema. There is also invasion of the T2 and T4 vertebral bodies with a separate metastatic lesion at T6. Cervical spine MRI was reviewed. There is a metastatic lesion noted on this study with cord compression at T3. There are no metastatic lesions seen in the cervical spine and there is no compression of the cervical cord. His brain MRI was reviewed. It is consistent with severe chronic white matter disease consistent with his history of multiple sclerosis, but no evidence of enhancing metastatic disease. The patient remains with decreased motor strength affecting both lower extremities. PHYSICAL EXAMINATION: VITAL SIGNS: Temperature was 97.3, respirations 18, pulse 65 and blood pressure 130/61 with a pulse ox of 93% on room air. HEENT: Head normocephalic, atraumatic. Eyes: No icterus. Ears: Clear. Throat: Noninjected. NECK: Supple. HEART: S1, S2. LUNGS: Clear. ABDOMEN: Soft. EXTREMITIES: No edema. SKIN: Without rash. NEUROLOGICAL: Unchanged. PSYCHOLOGICAL: Alert. VASCULAR: Legs warm to touch. LABORATORY DATA: Sodium 137, K 4.1, chloride 106, bicarb 27, BUN 30, creatinine 0.7, random blood sugar was 135, calcium 7.9. White count 11,600, hemoglobin 12.9, hematocrit 38.2, platelets 196,000. IMPRESSION: A 72-year-old male with a newly noted right upper posterior lung cancer extending into his T3 vertebral body complicating his comorbidities of organic brain syndrome, Alzheimer's dementia, advanced multiple sclerosis and now with steroid-induced insulin-dependent diabetes mellitus, chronic obstructive pulmonary disease exacerbation and bedridden status. PLAN: The plan at present is to continue medications including Aricept, subcu heparin, Gilenya, Humulin R insulin coverage, p.r.n. morphine, Protonix, IV Solu-Medrol taper, Ultracet and Xopenex. Reevaluations with Neurosurgery and Neurology will ensue to decide what the course of mobility will be for this patient, whether it be bedridden status or out of bed to chair. He also will need disposition discussed with family while continuing on a pureed thin liquid diet, wearing Multi Podus boots, having air mattress and fall and skin precautions. He is receiving bedside therapy only for range of motion and ultimate prognosis appears poor. Based on his clinical progress, additional diagnostic testing and workup will be entertained and all of this will be discussed in detail with his , family and co-consultants. Jasmin Dominique MD MTDD
[2018-01-28] MEDS: MethylPREDNISolone 40 mg Vial IVP SCH ×6 (03:10→21:58)
[2018-01-28] MEDS: Levalbuterol 0.63 MG/3 ML Inhal Soln UD IH SCH ×3 (07:18→20:40)
[2018-01-28] MEDS: Insulin Reg-MEDIUM-Coverage SC SCH ×4 (07:30→21:54)
[2018-01-28] MEDS: Pantoprazole 40 mg Susp UD PO SCH (10:29)
[2018-01-28] MEDS: GILENYA 0.5 MG PO SCH (10:29)
[2018-01-28] MEDS: Morphine 4 mg/ml ISec IVP PRN ×2 (10:30→16:25)
--- NOTE | 2018-01-28 14:42 | PN ---
DATE: 01/28/2018 SUBJECTIVE: Mr. Be had his MRIs done. They were reviewed by my partner and there basically is no significant cord compression. There is no instability either in terms of how it affects the thoracic spinal column. Therefore, given his overall condition in terms of the metastatic cancer, MS, status post CVA, essentially nonambulatory, there is no surgical intervention planned for this gentleman with his poor prognosis. As stability is not affected, he can be mobilized certainly bed to chair as needed to change his position, etc. If you have any other questions, please contact us again. Martin Pedroza MD
[2018-01-29] MEDS: MethylPREDNISolone 40 mg Vial IVP SCH ×6 (02:55→21:43)
[2018-01-29] MEDS: Levalbuterol 0.63 MG/3 ML Inhal Soln UD IH SCH ×3 (08:18→19:39)
[2018-01-29] MEDS: Pantoprazole 40 mg Susp UD PO SCH (10:08)
[2018-01-29] MEDS: GILENYA 0.5 MG PO SCH (10:09)
[2018-01-29] MEDS: Insulin Reg-MEDIUM-Coverage SC SCH ×3 (10:09→16:59)
[2018-01-29] MEDS: TraMADol/Apap 37.5/325 mg Tab PO PRN ×2 (10:09→18:26)
--- NOTE | 2018-01-29 14:03 | PN ---
DATE: 01/28/2018 SUBJECTIVE: This 72-year-old male was examined at his bedside in the presence of his daughter, Lindsey and his , Silvina and this case was reviewed in detail with both and nurse, Luciana Mejia, registered nurse. The patient is chronically bedridden. He is receiving daily radiation therapy to his T3 vertebral lung metastatic lesion. I have discussed this case in detail with Dr. Darryl Herman from Neurology and I am awaiting a reevaluation from physician, Martin Pedroza, neurosurgeon. The patient on review of MRI has metastatic disease with suggestion of cord compression at the level of T4. We are awaiting instructions from Dr. Pedroza regarding physical therapy and getting this patient out of bed to chair and arranging for disposition management to home upon completion of radiation therapy. The patient has multiple comorbidities including advanced Alzheimer's dementia, advanced multiple sclerosis, steroid-induced hyperglycemia and history of chronic obstructive pulmonary disease and gastroesophageal reflux disease. PHYSICAL EXAMINATION: GENERAL: At present, he denied any fever, chills, chest pain or shortness of breath. VITAL SIGNS: His temperature was 98, respirations 20, pulse 71 and blood pressure 129/61 with a pulse ox of 93% on room air. HEAD: Normocephalic, atraumatic. Eyes: No icterus. Ears: Clear. Throat: Noninjected. NECK: Supple. HEART: Regular S1, S2. LUNGS: Rhonchi that clear with coughing. ABDOMEN: Soft. EXTREMITIES: No edema. SKIN: Without rash. NEUROLOGICAL: He has withdrawal of both limbs to tactile stimulus, but marked weakness. VASCULAR: Legs warm to touch. PSYCHOLOGICAL: Alert and oriented x3. LABORATORY DATA: White count 11,600, hemoglobin 12.9, hematocrit 38.2, platelets 196,000. Random blood sugar 160. IMPRESSION: A 72-year-old male with newly noted lung cancer in the right posterior apex of his lung with extension to the T3 vertebrae and metastatic disease to T6, his rib and comorbidities of organic brain syndrome, multiple sclerosis, steroid-induced hyperglycemia, peptic ulcer disease with gastroesophageal reflux disease, degenerative arthritis and chronic obstructive pulmonary disease. PLAN: The plan at present, as discussed with his daughter and at bedside, will be to continue Aricept, Flexeril, Gilenya, Humulin R medium insulin coverage before meals and at bedtime, morphine for severe pain, Protonix, Solu-Medrol taper, Tylenol, Ultracet p.r.n. pain, Xopenex inhalational therapy and bedside physical therapy. I did have a lengthy discussion with daughter and at bedside regarding DNR/DNI status. They will further discuss this and give me further recommendations regarding their decision on this option. He continues on nasal O2, a pureed and thin liquid diet with aspiration precautions. He is wearing Multi Podus boots to prevent skin breakdown of his heels and also has been recommended to have frequent turning by the nursing staff to prevent sacral sores. I have requested that the patient be placed out of bed to chair with assistance once cleared by neurosurgeon, Dr. Pedroza. He has an air mattress as well. He remains on fall precautions. He continues on blood sugar checks with insulin coverage. He is ordered to have dietary supplements of Ensure Enlive 2 daily, vanilla flavored and physical therapy for strengthening at bedside. Hospice was discussed, home with therapy was discussed, necessary equipment at home including hospital bed and wheelchairs were discussed with daughter and and greater than 35 minutes was spent in the care management, discussion at bedside and outlining of orders for this patient today and review of this case with nurse, Roberto. All questions were answered Jasmin Dominique MD MTDD
[2018-01-30] MEDS: MethylPREDNISolone 40 mg Vial IVP SCH ×6 (01:51→22:37)
[2018-01-30] MEDS: Insulin Reg-MEDIUM-Coverage SC SCH ×5 (02:48→22:54)
[2018-01-30] MEDS: Levalbuterol 0.63 MG/3 ML Inhal Soln UD IH SCH ×3 (08:18→20:35)
[2018-01-30 08:19] LABS: HEMOGLOBIN 13.5 g/dL (14.0-18.0); MEAN CELL VOLUME 89.2 fl (80.0-105.0); MEAN CORPUSCULAR HEMOGLOBIN 30.5 pg (25.0-35.0); MEAN CORPUSCULAR HGB CONC 34.2 g/dl (31.0-37.0); MEAN PLATELET VOLUME 10.8 fl (7.0-11.0); RBC 4.43 10^6/uL (3.5-6.1); RED CELL DISTRIBUTION WIDTH 14.8 % (11.5-14.5); WHITE BLOOD COUNT 20.2 10^3/ul (4.5-11.0)
[2018-01-30 09:04] LABS: BLOOD UREA NITROGEN 29 mg/dL (7-21); CALCIUM 7.9 mg/dL (8.4-10.5); GFR NON-AFRICAN AMERICAN > 60
[2018-01-30] MEDS: Pantoprazole 40 mg Susp UD PO SCH (09:25)
[2018-01-30] MEDS: GILENYA 0.5 MG PO SCH (09:42)
[2018-01-30] MEDS: TraMADol/Apap 37.5/325 mg Tab PO PRN (13:41)
--- NOTE | 2018-01-31 02:37 | PN ---
DATE: 01/30/2018 SUBJECTIVE: This 72-year-old male was examined at his bedside and his case was reviewed with his nurse, Bal Nolen, registered nurse. The patient is alert and oriented. He remains weak and deconditioned. At present, he is showing signs of sacral and heel stage I ulcers because of persistent bedridden status. I have discussed the patient's neurological evaluation by Dr. Martin Pedroza from Neurosurgery and have requested nurse, Tamanna with the assistance of Physical Therapy. 1. Get this patient out of bed. 2. Apply air mattress. 3. Do continued frequent rotations of the patient in his bed to prevent further skin breakdown. This was reviewed with his clinical nursing director, Donna as well. PHYSICAL EXAMINATION: VITAL SIGNS: His temperature is 97.6, respirations 18, pulse 63 and blood pressure 134/60 with a pulse ox of 97% on room air. HEAD: Normocephalic, atraumatic. EYES: No icterus. EARS: Clear. THROAT: Noninjected. NECK: Supple. HEART: Was regular S1, S2. LUNGS: Clear. ABDOMEN: Soft. EXTREMITIES: No edema. SKIN: Without rash. NEUROLOGICAL: Intact. PSYCHOLOGICAL: Alert. VASCULAR: Legs warm to touch. LABORATORY DATA: White count 20,200, hemoglobin 13.5, hematocrit 39.5, platelets 203,000. Sodium 134, K 4.4, chloride 102, bicarb 29, BUN 29, creatinine 0.7, random blood sugar 104, calcium 7.9. Blood, urine and MRSA nasal cultures are all negative. IMPRESSION: A 72-year-old male with reactive leukocytosis in the setting of IV steroids for newly noted lung cancer impinging on his T3 vertebral body and spinal cord without evidence of compression on review of MRI of thoracic spine with comorbidities of organic brain syndrome, Alzheimer's dementia, advanced multiple sclerosis, steroid-induced hyperglycemia, peptic ulcer disease with gastroesophageal reflux disease, obesity and degenerative arthritis and chronic obstructive pulmonary disease. The patient will continue on Aricept, Flexeril, Gilenya, insulin, Protonix, IV Solu-Medrol taper, Tylenol, Ultracet p.r.n. severe pain and Xopenex. He is to receive a continued course of radiation to his thoracic spine lesion. He is wearing nasal O2 p.r.n. and continues on a pureed thin liquid diet while wearing Multi Podus boots, awaiting Wound Care consultation, ordered to be out of bed to chair with assistance of two air mattress, fall precautions and bedside physical therapy. He continues on dietary supplement with Ensure Enlive b.i.d. and based on clinical progress, will be scheduled for disposition based on family desires with probable home with a hospital bed and the support of his homemaker and . Overall prognosis remains poor. All of the above was discussed with nurse, Bal Nolen. All questions were answered. Jasmin Dominique MD MTDD
[2018-01-31] MEDS: MethylPREDNISolone 40 mg Vial IVP SCH ×3 (03:18→10:19)
[2018-01-31 07:10] LABS: HEMOGLOBIN 13.1 g/dL (14.0-18.0); MEAN CELL VOLUME 87.9 fl (80.0-105.0); MEAN CORPUSCULAR HEMOGLOBIN 30.4 pg (25.0-35.0); MEAN CORPUSCULAR HGB CONC 34.6 g/dl (31.0-37.0); MEAN PLATELET VOLUME 10.7 fl (7.0-11.0); RBC 4.31 10^6/uL (3.5-6.1); RED CELL DISTRIBUTION WIDTH 14.8 % (11.5-14.5); WHITE BLOOD COUNT 19.9 10^3/ul (4.5-11.0)
[2018-01-31 07:55] LABS: BLOOD UREA NITROGEN 31 mg/dL (7-21); GFR NON-AFRICAN AMERICAN > 60
[2018-01-31] MEDS: Levalbuterol 0.63 MG/3 ML Inhal Soln UD IH SCH ×3 (08:05→20:25)
[2018-01-31] MEDS: Insulin Reg-MEDIUM-Coverage SC SCH ×2 (08:30→22:00)
--- NOTE | 2018-01-31 09:19 | RAD ---
Date of service: 01/31/2018 HISTORY: elevated wbcs COMPARISON: No prior. FINDINGS: LUNGS: 01/21/2018 improving right basilar opacity. PLEURA: Small to moderate left pleural effusion, increased from prior. No evidence of right pleural effusion. No pneumothorax. CARDIOVASCULAR: Normal. OSSEOUS STRUCTURES: No significant abnormalities. VISUALIZED UPPER ABDOMEN: Normal. OTHER FINDINGS: None. IMPRESSION: Decreasing right basilar infiltrate. Increasing left pleural effusion.
[2018-01-31] MEDS: Morphine 4 mg/ml ISec IVP PRN (10:19)
[2018-01-31] MEDS: Pantoprazole 40 mg Susp UD PO SCH (10:19)
[2018-01-31] MEDS: GILENYA 0.5 MG PO SCH (10:19)
--- NOTE | 2018-01-31 10:31 | PN ---
DATE: 01/29/2018 SUBJECTIVE: This 72-year-old male was examined at his bedside on the afternoon of 01/29/2018 and this case was reviewed in detail with nurse, Luciana Mejia, registered nurse. I have reviewed the recommendations of Dr. Martin Pedroza from neurosurgery. He stated that he reviewed Mr. Be's MRI of thoracic spine. He feels there is no cord compression. He comments there is no instability either in terms of how it affects the thoracic spinal column and therefore given his overall condition in terms of his metastatic cancer, multiple sclerosis, and essentially non ambulatory status prior to this event, there is no surgical intervention planned for him and it is his recommendation as stability is not affected, he can be mobilized from bed to chair as needed and to change his position as desired. This was reviewed with nurse, Roberto and I have requested that physical therapy and Nursing get this patient out of bed to chair and then to wheelchair to expedite his disposition planning and mobility, strength regaining for the family when he is brought home. At present, he is denying any fever, chills, chest pain or shortness of breath. He is cooperating with the nursing staff. He is tolerating his dysphagia diet. PHYSICAL EXAMINATION: VITAL SIGNS: On physical exam, temperature was 99, respirations 20, pulse 70 and blood pressure 109/54 with a pulse ox of 93% on room air. HEAD: Normocephalic, atraumatic. Eyes: No icterus. Ears: Clear. Throat: Noninjected. NECK: Supple. HEART: Was regular S1, S2. LUNGS: Clear. ABDOMEN: Obese. EXTREMITIES: No edema. SKIN: Without rash. NEUROLOGICAL: Unchanged. PSYCHOLOGICAL: Alert and anxious. VASCULAR: Legs warm to touch. LABORATORY DATA: Blood sugar 103. Blood, urine and MRSA cultures unremarkable. IMPRESSION: A 72-year-old male with right posterior lung cancer, now with metastasis to thoracic spine and ribs with comorbidities of advanced organic dementia, advanced organic brain syndrome, Alzheimer's dementia, advanced multiple sclerosis, immobility, steroid-induced hyperglycemia, gastroesophageal reflux disease, chronic obstructive pulmonary disease and degenerative arthritis. PLAN: The plan is to continue Aricept, Flexeril p.r.n., Gilenya, Humulin R medium insulin coverage p.r.n., oral Protonix, IV Solu-Medrol taper, Tylenol, Ultracet p.r.n. severe pain and Xopenex inhalational therapy. He continues on a dysphagia aspiration precaution diet. He is ordered to have nasal O2 p.r.n. He is constantly wearing his Multi Podus boots. He is on an air mattress. He remains on fall precautions and will be ordered out of bed to chair with additional physical therapy for regaining of mobilization. All of the above was discussed in detail with nurse, Verdiner and the patient. All questions were answered. Jasmin Dominique MD MTDD
[2018-02-01] MEDS: Levalbuterol 0.63 MG/3 ML Inhal Soln UD IH SCH ×3 (07:25→20:10)
[2018-02-01] MEDS: Insulin Reg-MEDIUM-Coverage SC SCH ×3 (07:30→17:43)
[2018-02-01 07:39] VITALS: RESP 20
--- NOTE | 2018-02-01 08:49 | PN ---
DATE: 01/31/2018 SUBJECTIVE: This 72-year-old male was examined at bedside on the morning of 01/31/2018. He continues to receive daily radiation therapy to his T3 vertebral body metastatic cancer lesion. The patient remains weak and bed-bound, has been cleared by Neurosurgery for physical therapy. I have asked case management to discuss disposition planning with the patient's and I have also discussed this case in detail with physical therapy regarding the need for rotating the patient while in bed as well as getting the patient out of bed to chair and working on upper motor strength. They have been no reports of fever, chills, chest pain, or shortness of breath and he is cleared for a dysphagia modified diet. I have asked nursing to attend to his sacral wound issues which at present, are being treated with the application of DuoDerm. PHYSICAL EXAMINATION: VITAL SIGNS: His temperature was 97.7, respirations 18, pulse 69, and blood pressure 128/74 with a pulse ox of 95% on 2 liters nasal O2. HEENT: Head: Normocephalic, atraumatic. Eyes: No icterus. Ears: Clear. Throat: Noninjected. NECK: Supple. HEART: Regular S1, S2. No pathological rubs, murmurs, or gallops. LUNGS: Without wheezing. ABDOMEN: Obese, nontender. No palpable organomegaly. EXTREMITIES: No edema. SKIN: With a sacral sore as well as a right heel sore. VASCULAR: Legs warm to touch. PSYCHOLOGIC: Alert, but chronically confused. NEUROLOGIC: Marked deconditioning and bilateral lower leg weakness. LABORATORY DATA: White count 19,900, hemoglobin 13.1, hematocrit 37.9, platelets 185,000. Sodium 135, K 4.3, chloride 102, bicarb 27, BUN 31, creatinine 0.7, random blood sugar 98. Morning chest x-ray was reviewed. It shows a small left pleural effusion with no evidence of right pleural effusion, no pneumothorax. Blood and urine cultures have been requested and I have instructed nurse, Mikayla Mejia, to remove Guardado catheter and place a [place] catheter on this patient and also I have discussed cortisone tapering protocol with nurse practitioner, María Charlton, nursing practitioner. The patient will continue on physical therapy. I will have case management talk to the family about disposition planning. He will, at the present time, continue on Aricept, Flexeril, Gilenya, Humulin R insulin coverage, morphine p.r.n. severe pain, prednisone taper, Protonix, Tylenol, Ultracet, and Xopenex. Based on his clinical progress, additional diagnostic testing and workup will be entertained. Overall prognosis remains poor. Family has not decided on code status at the present time but has declined hospice. Jasmin Dominique MD MTDD
[2018-02-01 09:25] LABS: BLOOD UREA NITROGEN 35 mg/dL (7-21); CALCIUM 8.1 mg/dL (8.4-10.5); GFR NON-AFRICAN AMERICAN > 60
[2018-02-01 09:27] LABS: HEMOGLOBIN 13.8 g/dL (14.0-18.0); MEAN CORPUSCULAR HEMOGLOBIN 30.6 pg (25.0-35.0); MEAN PLATELET VOLUME 10.8 fl (7.0-11.0); RBC 4.51 10^6/uL (3.5-6.1); RED CELL DISTRIBUTION WIDTH 15.3 % (11.5-14.5)
[2018-02-01] MEDS: GILENYA 0.5 MG PO SCH (09:47)
[2018-02-01] MEDS: Pantoprazole 40 mg Susp UD PO SCH (09:47)
[2018-02-01] MEDS: Morphine 4 mg/ml ISec IVP PRN (09:49)
[2018-02-01] MEDS ORDERED: Vancomycin 1gm in NS 250ml 1 GM/250 ML BAG IVPB SCH (11:30)
--- NOTE | 2018-02-01 12:01 | CP.PCM.CON ---
History of Present Illness - History of Present Illness History of Present Illness: Palliative consult requested by Dr. Yuko Dominique Reason: Advance care planning 72 year old male with history of MS,degenerative arthritis and cognitive dementia who presented to ED on 01/19/18 with shortness of breath, wheezing,body stiffness, decreased urine output and dysphagia. Initial labs 01/19; WBC 10.3, Hgb 14.3, Plt 197, NA 141, K 3.7, BUN 29, Slate Mixer 0.8, glucose 141, Troponin 0.01, BNP 312, lactic acid 1.8. Blood and urine cultures negative Chest CT 01/19: RUL lung mass with invasion of the spinal canal, questionable bony metastatic lytic lesion in 12th rib Head CT 01/19: severe atrophy, no acute findings. CT of ab/[id number]/ 4: No evidence of metastatic disease. Lung Biopsy /[id number]: Non small cell lung carcinoma. Nuclear Scan 01/25: No evidence of bony metastasis. Brain MRI 01/26:severe atrophy and severe chronic white matter disease. Cervical MRI 01/26:consistent with T3 lesion/cord compression,no metastatic lesions or compression in cervical spine Thoracic MRI 01/26: parspinal mass at T3 level measuring 2 X 5 cm, the mass invades the vertebral body and extends into the right side of the epidural space with compression of the cord and cord edema, also invasion of T2 and T4 vertebral body PMHx:MS, dementia, DM,COPD, BPH, arthritis. Social History: Former heavy smoker, no alcohol or drug use. Lives with spouse. Family History: Non contributory. Advance Care Planning: The patient does not have an Advanced Directive Review of Systems: As per HPI, patient is altered, unable to obtain., Past Patient History - Infectious Disease Hx of Infectious Diseases: None - Past Social History Smoking Status: Unknown If Ever Smoked - CARDIAC Hx Cardiac Disorders: No - PULMONARY Hx Chronic Obstructive Pulmonary Disease (COPD): Yes - NEUROLOGICAL Hx Neurological Disorder: Yes Hx Alzheimer's Disease: Yes Hx Multiple Sclerosis: Yes Other/Comment: multiple sclerosis - HEENT Hx HEENT Problems: No - RENAL Hx Chronic Kidney Disease: No - ENDOCRINE/METABOLIC Hx Endocrine Disorders: No - HEMATOLOGICAL/ONCOLOGICAL Hx Blood Disorders: No - INTEGUMENTARY Hx Dermatological Problems: No - MUSCULOSKELETAL/RHEUMATOLOGICAL Hx Musculoskeletal Disorders: No Hx Falls: No - GASTROINTESTINAL Hx Gastrointestinal Disorders: No - GENITOURINARY/GYNECOLOGICAL Hx Genitourinary Disorders: Yes Hx Incontinence: Yes - PSYCHIATRIC Hx Psychophysiologic Disorder: No Hx Substance Use: No - SURGICAL HISTORY Hx Surgeries: No - ANESTHESIA Hx Anesthesia: No Hx Anesthesia Reactions: No Hx Malignant Hyperthermia: No Meds Allergies/Adverse Reactions: Allergies Allergy/AdvReac Type Severity Reaction Status Date / Time No Known Allergies Allergy Verified 01/19/18 19:14 - Medications Medications: Current Medications Acetaminophen (Tylenol 325mg Tab) 650 mg PO Q6H PRN PRN Reason: Pain, Mild (1-3) Last Admin: 01/24/18 14:21 Dose: 650 mg Cyclobenzaprine HCl (Flexeril) 5 mg PO HS PRN PRN Reason: Muscle spasm Donepezil HCl (Aricept) 10 mg PO HS LOWELL Last Admin: 01/31/18 22:41 Dose: 10 mg Home Med (Home Med) 1 unit PO DAILY LOWELL Last Admin: 02/01/18 09:47 Dose: 1 unit Cefepime HCl (Maxipime 1gm) 1 gm in 100 mls @ 25 mls/hr IVPB Q12 LOWELL; Protocol Vancomycin HCl (Vancomycin 1gm) 1 gm in 250 mls @ 167 mls/hr IVPB Q12H LOWELL; Protocol Insulin Human Regular (Humulin R Med) 0 units SC ACHS LOWELL; Protocol Last Admin: 01/31/18 22:00 Dose: Not Given Levalbuterol HCl (Xopenex) 0.63 mg IH [id number] PRN PRN Reason: Shortness of Breath Levalbuterol HCl (Xopenex) 0.63 mg IH TIDRESP [facility] Last Admin: 02/01/18 07:25 Dose: 0.63 mg Morphine Sulfate (Morphine) 4 mg IVP DAILY PRN PRN Reason: Pain, severe (8-10) Last Admin: 02/01/18 09:49 Dose: 4 mg Pantoprazole Sodium (Protonix Susp) 40 mg PO ACB LOWELL Last Admin: 02/01/18 09:47 Dose: 40 mg Prednisone (Prednisone Tab) 5 mg PO Q4H LOWELL Stop: 02/03/18 10:01 Last Admin: 02/01/18 09:47 Dose: Not Given Tramadol/Acetaminophen (Ultracet 37.5/325 Mg) 1 tab PO Q6H PRN PRN Reason: Pain, moderate (4-7) Last Admin: 01/30/18 13:41 Dose: 1 tab Physical Exam - Constitutional Appears: Chronically Ill - Head Exam Head Exam: NORMOCEPHALIC - Eye Exam Eye Exam: Normal appearance, PERRL - ENT Exam ENT Exam: Mucous Membranes Moist - Respiratory Exam Respiratory Exam: Decreased Breath Sounds, NORMAL BREATHING PATTERN - Cardiovascular Exam Cardiovascular Exam: REGULAR RHYTHM, +S1, +S2 - GI/Abdominal Exam GI & Abdominal Exam: Normal Bowel Sounds, Soft - Extremities Exam Extremities exam: Positive for: pedal pulses present Additional comments: weakness of all extremities - Back Exam Additional comments: sacral ulcer - Skin Skin Exam: Dry, Pallor - Additional Findings Additional findings: Palliative performance scale rating 30 % Results - Vital Signs Recent Vital Signs: Last Vital Signs Temp 98.3 F 02/01/18 06:00 Pulse 78 02/01/18 06:00 Resp 20 02/01/18 06:00 BP 135/71 02/01/18 09:48 Pulse Ox 96 02/01/18 06:00 - Labs Result Diagrams: 02/01/18 09:00 02/01/18 09:00 Labs: Laboratory Results - last 24 hr 01/31/18 01/31/18 02/01/18 16:02 21:02 06:21 WBC RBC Hgb Hct MCV MCH MCHC RDW Plt Count MPV Sodium Potassium Chloride Carbon Dioxide Anion Gap BUN Creatinine Est GFR ( Amer) Est GFR (Non-Af Amer) POC Glucose (mg/dL) 121 H 104 90 Random Glucose Calcium 02/01/18 02/01/18 02/01/18 09:00 09:00 11:19 WBC 22.0 H RBC 4.51 Hgb 13.8 L Hct 40.6 L MCV 90.0 MCH 30.6 MCHC 34.0 RDW 15.3 H Plt Count 157 MPV 10.8 Sodium 135 Potassium 4.1 Chloride 103 Carbon Dioxide 27 Anion Gap 9 L BUN 35 H Creatinine 0.7 L Est GFR ( Amer) > 60 Est GFR (Non-Af Amer) > 60 POC Glucose (mg/dL) 90 Random Glucose 109 Calcium 8.1 L Assessment & Plan - Assessment and Plan (Free Text) Assessment: 72 year old male with history of dementia, MS, OA who is admitted with left pleural effusion, dyspahgia and findings of RUL lung mass. pathology NSCL cancer, metastatic lesion/ cord compression of T3. Currently receiving XRT therapy to spine. The patients and general maintenance helper are at bedside. Advance care planning discussion ensued. understands the benefits and burdens of resuscitation and states that she does not want patient to be intubated or to have CPR. Family also does not want feeding tube. will speak with her children before initiating POLST directive. Family has not decided whether they want to pursue treatment of patients cancer once radiation therapy is completed.Family aloo considering hospice care. Will meet with patient and daughter for further goals of care discussion. Time spent with family in goals of care and advance care planning, 30 minutes Addendum: 6:45 PM The patient is rapid response.Family notified. requesting to speak with me. I called at home. expressed that she does not want CPR or intubation. stated that her children are in agreement with this plan. I explained that would have to verify these wishes with slp teacher. Medial team notified Dr Dominique of situation. 8:55 PM I received a call from RN states family is requesting to speak with me. Daughter Mireille asked that her father be removed from BIPAP and that he be made comfortable. She is requesting that he be given Morphine. I explained that removing BIPPAP would likely hasten . I also explaied that while Morphine should provide relief of pain/dyspnea it may also hasten . I confirmed that family wanted Morphine to be given. I notified Dr. Camille Villela, PGY3 of family's request Plan: Goals of care and advance care planning Dsyphagia: Tolerating modified dysphagia diet Shortness of breath: Resolved, Duonebs as needed. Spinal Metastasis: Currently receiving XRT.Steroids being tapered. NCSCL cancer: Follow up with oncologist as out patient regarding further treatment options. Deconditioning: PT/OT Discharge planning
[2018-02-01 18:13] LABS: ARTERIAL BLOOD GAS HCO3 29.9 mmol/L (21-28); ARTERIAL BLOOD GAS O2 SAT 77.4 % (95-98); ARTERIAL BLOOD GAS PCO2 73 mm/Hg (35-45); ARTERIAL BLOOD GAS PH 7.22 (7.35-7.45); ARTERIAL BLOOD GAS TCO2 32.1 mmol.L (22-28)
[2018-02-01] MEDS ORDERED: Etomidate 20 mg/10ml Inj IV ONE (18:25)
--- NOTE | 2018-02-01 18:41 | CP.PCM.PCO ---
Physician Communication Note - Physician Communication Note Physician Communication Note: DNR/DNI Addendum Addendum: 02/01/18 18:[address] Triplett's conversation w/ (Silvina) [phone] on 01/26/2018 at 18:40 Patient is now DNR/DNI For Further information please see Dr. Rudy Triplett's note
--- NOTE | 2018-02-01 18:47 | RAD ---
Date of service: 02/01/2018 HISTORY: Dyspnea. COMPARISON: January 31, 2018 single-view chest. Relevant interventional procedure(s): CT-guided right lung biopsy FINDINGS: LUNGS: Progressive infiltrate right lower lobe. Stable consolidative changes left lower lobe. PLEURA: Decrease in left pleural effusion although this may be technical. There is no history of recent thoracentesis. CARDIOVASCULAR: No radiographic findings to suggest acute or significant cardiovascular disease. OSSEOUS STRUCTURES: No significant abnormalities. VISUALIZED UPPER ABDOMEN: Normal. OTHER FINDINGS: None. IMPRESSION: Evolving right lower lobe infiltrate. Perceptible differences and findings in the left neha thorax. This includes decrease in left pleural effusion and improved aeration of the left lower lobe.
[2018-02-01] MEDS ORDERED: Morphine 2 mg/ml ISec IVP PRN (18:49)
--- NOTE | 2018-02-01 18:55 | PCM.RRT ---
<Fahad Cabrera - Last Filed: 02/01/18 19:02> [employer] Nurse Assessment - Situation Date: 02/01/18 Time [employer]ANT was called: 17:59 [employer] Responder Arrival Time: 17:02 [employer] Location:: [address] [place] [address] Room Number: 565 bed 1 [employer] Reason for Call: Respiratory Distress [employer] Called By: RN - IV IV Inserted during [employer] SAL[employer] CONSULTANT?: Yes - Respiratory Oxygen Delivery Method: Non Rebreather @% Oxygen Flow Rate: 10 Secretions Suctioned?: Yes (Cloudy white) Was the Patient Intubated?: No Was the Patient Placed on a Ventilator?: No - Medication Medications Administered During [employer]SULTANT: Respiratory treatment - Diagnostic Test Ordered EKG: Yes Chest X-Ray: Yes CT Scan: No - Stat Labs Ordered [employer]SULTANT Stat Labs Ordered: ABG CPR started during [employer] SALES CONSULTANT?: No - Vital Signs Vital Sign: Rapid Response Vital Sign Blood Pressure 150/75 Pulse Rate 108 Respiratory Rate 14 Oxygen Saturation 77 - Vital Signs at end of [employer]ANT Vital Signs at end of [employer] SAL[employer] CONSULTANT: Rapid Response End Vital Sign Blood Pressure 134/59 Pulse Rate 114 O2 Sat by Pulse Oximetry 91 - Recommendations Notifications: Attending Physician, Family or Designated Caregiver I.Reason for [employer]ANT - A) Acute Change in Patient: (Select all that apply): Acute change in SpO2 less - Respiratory Oxygen Delivery Method: Non Rebreather @% Oxygen Flow Rate: 10 - Constitutional Appears: Chronically Ill - Head Head Exam: NORMOCEPHALIC - Eyes Eye Exam: Normal appearance - Respiratory Exam Respiratory Exam: Decreased Breath Sounds - Cardiovascular Exam Cardiovascular Exam: Tachycardia, +S1, +S2 - GI/Abdominal Exam GI & Abdominal Exam: Soft. absent: Tenderness - Neurological Exam Neurological Exam: Awake. absent: Oriented x3 - Extremities Exam Extremities Exam: Normal Inspection. absent: Calf Tenderness Plan - Assessment of Findings&Treatment Plan [employer]SULTANT called for 72 y/o M with PMHx COPD & dementia. Pt was increasingly dyspneic, with course breath sounds likely secondary to aspiration. Pt is normally A&O x 1. He was saturating at 60s% upon arrival. Pt was deep-suctioned, and placed on non-rebreather mask. O2 saturations had subsequently increased to 80s-90s%. Stat chest xray, EKG, ABG, cbc/cmp were obtained immediately. During [employer]SULTANT, palliative care, ICU, and family were contacted. Discussion was made with family regarding code status. Pt was made DNR/DNI after discussion with palliative care and shoe stainer. Pt remained on floor and BiPAP was started. Pt is non-responsive at baseline, and was unable to respond to questions <Kajal Frausto - Last Filed: 02/02/18 15:58> [employer] Nurse Assessment - Vital Signs Vital Sign: Rapid Response Vital Sign Blood Pressure 150/75 Pulse Rate 108 Respiratory Rate 14 Oxygen Saturation 77 - Vital Signs at end of [employer]SULTANT Vital Signs at end of [employer] SAL[employer] CONSULTANT: Rapid Response End Vital Sign Blood Pressure 134/59 Pulse Rate 114 O2 Sat by Pulse Oximetry 91 Attending/Attestation - Attestation I have personally seen and examined this patient.: Yes I have fully participated in the care of the patient.: Yes I have reviewed all pertinent clinical information, including history, physical exam and plan: Yes Notes (Text): 02/02/18 15:53 attending note; rapid response was called for acute and chronic shortness of breath. Patient is an alert. Awake. Not responding. With significant respiratory distress. Placed on 100% oxygen via non-rebreather mask. Oxygen saturations slowly improved. Still with significant respiratory distress. Patient is 72 year old male with PMHx multiple sclerosis, dementia, COPD, prostate cancer admitted for SOB, found to have new lung mass s/p biopsy, with mets.currently getting radiation therapy. Case discussed with ICU attending in detail. Plan to transfer to ICU for intubation. Case discussed with patient's family member in detail by palliative care nurse Grace mosquera. Family agreed for comfort measures. DNI DNR order placed by shoe stainer. Case discussed with PMD in detail. Patient's family by the bedside. Patient will get comfort measures. Patient will be placed on BiPAP. Continue IV still writes, IV Lasix and morphine when necessary. Patient will stay in room 565 with comfort Measures. Family and PMD aware of the plan.
--- NOTE | 2018-02-01 18:57 | CP.PCM.PN ---
Subjective - Date & Time of Evaluation Date of Evaluation: 02/01/18 Time of Evaluation: 18:40 - Subjective Subjective: MICU Re-consult Note Note HPI Patient is 72yo male with PMHx multiple sclerosis, dementia, COPD, prostate cancer admitted for SOB, found to have new lung mass s/p biopsy, with mets. Pty was on the regular floor this evening, when CONSTRUCTION FRAMER called for respiratory distress, patient found to be hypoxic with CO2 retention. Patient's family has had long discussion with Palliative care thus far but no decision was made regarding code status. Patient clinically needs to be intubated. I called the /POA/HCP Silvina Be on phone [phone], and explained to her the clinical situation, and what the options are. She stated that the patie nt never wanted any aggressive measures such as CPR, or intubation. She wants the patient to be comfortable, the patients dypsnea to be treated with non invasive forms such as BIPAP and medications, morphine, steroids, Lasix etc. Patient is now DNR/DNI, to be placed on BIPAP, and given steroids, IV Lasix, Moprhine PRN IV. I also called the patients PCP Dr Dominique, and updated her of the clinical situation, and encounter. Objective - Vital Signs/Intake and Output Vital Signs (last 24 hours): Temp Pulse Resp BP Pulse Ox 98.9 F 75 20 123/58 L 94 L 02/01/18 14:00 02/01/18 14:00 02/01/18 14:00 02/01/18 14:00 02/01/18 14:00 Intake and Output: 02/01/18 02/01/18 06:59 18:59 Intake Total 120 Output Total 700 2400 Balance -580 -2400 - Medications Medications: Current Medications Acetaminophen (Tylenol 325mg Tab) 650 mg PO Q6H PRN PRN Reason: Pain, Mild (1-3) Last Admin: 01/24/18 14:21 Dose: 650 mg Cyclobenzaprine HCl (Flexeril) 5 mg PO HS PRN PRN Reason: Muscle spasm Donepezil HCl (Aricept) 10 mg PO HS LOWELL Last Admin: 01/31/18 22:41 Dose: 10 mg Home Med (Home Med) 1 unit PO DAILY LOWELL Last Admin: 02/01/18 09:47 Dose: 1 unit Cefepime HCl (Maxipime 1gm) 1 gm in 100 mls @ 25 mls/hr IVPB Q12 LOWELL; Protocol Vancomycin HCl (Vancomycin 1gm) 1 gm in 250 mls @ 167 mls/hr IVPB Q12H LOWELL; Protocol Last Admin: 02/01/18 16:14 Dose: 167 mls/hr Insulin Human Regular (Humulin R Med) 0 units SC ACHS LOWELL; Protocol Last Admin: 02/01/18 17:43 Dose: Not Given Levalbuterol HCl (Xopenex) 0.63 mg IH C2CMOAT PRN PRN Reason: Shortness of Breath Levalbuterol HCl (Xopenex) 0.63 mg IH TIDRESP LOWELL Last Admin: 02/01/18 13:16 Dose: 0.63 mg Morphine Sulfate (Morphine) 4 mg IVP DAILY PRN PRN Reason: Pain, severe (8-10) Last Admin: 02/01/18 09:49 Dose: 4 mg Pantoprazole Sodium (Protonix Susp) 40 mg PO ACB LOWELL Last Admin: 02/01/18 09:47 Dose: 40 mg Prednisone (Prednisone Tab) 5 mg PO Q4H LOWELL Stop: 02/03/18 10:01 Last Admin: 02/01/18 16:15 Dose: 5 mg Tramadol/Acetaminophen (Ultracet 37.5/325 Mg) 1 tab PO Q6H PRN PRN Reason: Pain, moderate (4-7) Last Admin: 01/30/18 13:41 Dose: 1 tab - Labs Labs: 02/01/18 09:00 02/01/18 09:00 - Constitutional Appears: Toxic, In Acute Distress, Older Than Stated Age, Chronically Ill - Head Exam Head Exam: NORMAL INSPECTION - Eye Exam Eye Exam: Normal appearance - ENT Exam ENT Exam: Mucous Membranes Dry - Neck Exam Neck Exam: Full ROM - Respiratory Exam Respiratory Exam: Accessory Muscle Use, Wheezes, Respiratory Distress - Cardiovascular Exam Cardiovascular Exam: Tachycardia, REGULAR RHYTHM, +S1, +S2 - GI/Abdominal Exam GI & Abdominal Exam: Soft, Normal Bowel Sounds - Back Exam Back Exam: NORMAL INSPECTION - Psychiatric Exam Psychiatric exam: Normal Affect - Skin Skin Exam: Cyanosis, Warm Assessment and Plan - Assessment and Plan (Free Text) Assessment: 72yo male with PMHx multiple sclerosis, dementia, COPD, prostate cancer admitted for SOB, found to have new lung mass s/p biopsy, with respiratory distress. - spoke to Silvina [phone], who stated that the patient did not want aggressive measures such as CPR, intubations; the patient is to be made comfortable with non invasive forms of ventilation, and meds - BIPAP - Morphine PRN - IV Solumedrol - Abx - Lasix IV - CXR with no definitive infiltrate - Pt is now DNR/DNI - Follow up palliative care - Hospice follow up
--- NOTE | 2018-02-01 20:17 | PN ---
DATE: 02/01/2018 SUBJECTIVE: This 72-year-old male was examined at the bedside on the morning of 02/01/2018, in the presence of his nurse, Mónica Mejia, registered nurse. The patient remains bedridden. He denies any fever, chills, chest pain, but has mild shortness of breath. He did have some mild shortness of breath earlier this morning that was treated with a stat dose of Lasix IV. Of note, a repeat chest x-ray which was performed yesterday due to newly noted leukocytosis in the presence of parenteral steroid therapy revealed a [id number] left pleural effusion, no evidence of a right pleural effusion, and he was noted to have a decreasing right basilar infiltrate. Given his pulmonary symptomatology, orders have been given to check blood and urine culture on this patient today and he will be treated empirically with IV vancomycin, IV Maxipime, and a procalcitonin serum level has been sent stat. It did review his surgical pathology report which shows poorly differentiated [id number] lung cancer and this was discussed with his in detail. I have asked social service provider, Angelina Barbosa as well as caseworker, Mahad Carlos to discuss with and family disposition planning. PHYSICAL EXAMINATION: VITAL SIGNS: His temperature was 98.3, respirations 20, pulse 78, and blood pressure 135/71 with a pulse ox of 96% on 3 L nasal O2. HEENT: Head: Normocephalic, atraumatic. Eyes: No icterus. Ears: Clear. Throat: Noninjected. NECK: Supple. HEART: Regular, S1 and S2. LUNGS: Rhonchi, especially at the right base posteriorly. ABDOMEN: Soft. EXTREMITIES: No edema. SKIN: Sacral and heel breakdown on his right heel. VASCULAR: Legs warm to touch. PSYCHOLOGIC: Chronic confusion. NEURO: Marked deconditioning. LABORATORY DATA: White count 22,000, hemoglobin 13.8, hematocrit 40.6, and platelets 157,000. Sodium 135, K 4.1, chloride 103, bicarb 27. BUN 35, creatinine 0.7. Random blood sugar 109. Calcium 8.1. Previous blood and urine culture showed no growth. 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 Martin Pedroza, medical doctor, neurosurgeon; now with comorbidities of chronic obstructive pulmonary disease, chronic organic brain syndrome, Alzheimer dementia, bedridden status, advanced multiple sclerosis, steroid-induced hyperglycemia, rule out aspiration pneumonia, peptic ulcer disease with gastroesophageal reflux disease, and degenerative arthritis. PLAN: The plan at present is to continue Aricept, [place], insulin, IV Maxipime, IV vancomycin, morphine p.r.n. severe pain, prednisone taper, Protonix, Tylenol, Ultracet for severe pain, and Xopenex inhalational therapy. He continues to receive daily radiation therapy to T3 metastatic lung cancer. Repeat blood and urine cultures will be sent. A procalcitonin level will be checked and he is ordered to have nasal O2, pureed diet, aspiration precautions, multi-podus boots, air mattress, frequent turning, supplements with Ensure Enlive, and physical therapy and occupational therapy and speech therapy at bedside. Based on clinical progress, additional diagnostic testing and workup will be entertained and disposition planning will be discussed with family with the help of case management. I did review the above with the patient's today. Greater than 35 minutes was spent in the care management, review of x-rays, outling of new orders, and discussion of his case with social service, case management, Nursing, and nurse practitioner as well as his . All questions were answered. Jasmin Dominique MD [email or web address]
[2018-02-01 21:54] LABS: VENOUS BLOOD GAS PO2 31 mm/Hg (30-55)
[2018-02-01] MEDS ORDERED: Cefepime 1gm in NS 100ml 1 GM/100 ML BAG IVPB SCH (22:00)
[2018-02-01 22:03] LABS: VENOUS BLOOD PH 7.15 (7.32-7.43)
--- NOTE | 2018-02-01 23:02 | CP.PCM.PRO ---
<Jeremy Tierney - Last Filed: 02/02/18 00:00> Pronouncement of Note - Clinical Findings Physical Exam: No Response Verbal/Painful Stimuli, Absent Peripheral Pulses{Carotid & Femoral}, Absent Heart & Breath Sounds, No Pupillary Light Reflex, No Corneal Reflex, Pupils Fixed & Dilated - Pronouncement Time Time of Pronouncement of : 22:56 - Notifications Pronouncement Notifications: Family Notified, Atending Notified Assessment Consultant Notified: No - Autopsy Autopsy Requested: No - [place] [id number] <Gina Pollock - Last Filed: 02/02/18 01:55> Attending/Attestation - Attestation I have personally seen and examined this patient.: Yes I have fully participated in the care of the patient.: No I have reviewed all pertinent clinical information: Yes Notes (Text): 02/02/18 01:52 Pt was pronounced by the resident at 11:56 PM on 02/01/18. 02/02/18 01:53
--- NOTE | 2018-02-01 23:14 | CARD ---
APPROVED REPORT Date of service: 02/01/2018 EKG Measurement Heart [id number] ID [id number] <Conclusion> Sinus tachycardia with premature atrial complexes Left axis deviation Nonspecific T wave abnormality Abnormal ECG
[2018-02-01 23:21] VITALS: BP 123/58; PULSE 92; TEMP 98.9; O2SAT 94
--- NOTE | 2018-02-03 08:08 | DS ---
SUMMARY: This 72-year-old male on the evening of 02/01/2018 in the presence of his family. He was a DNR/DNI and the patient was noted to have respiratory distress in the setting of probable aspiration pneumonia in the setting of chronic obstructive pulmonary disease and metastatic lung cancer. Family was aware. Body was released. Jasmin Dominique MD
== END 2018-02-01 22:55 | DRG 180 ==
LOC: ED 09:02 → ERH 13:18 → ICU 14:58 → 5RSO 01-21 13:52 → 5RNO 01-21 13:59
PROVIDERS: ADMIT Internal Medicine; ATTEND Internal Medicine
PROC: 0BBC3ZX Excision of Right Upper Lung Lobe, Percutaneous Approach, Diagnostic (ICD-10-PCS; principal; 2018-01-20 16:00)
PROC: DB021ZZ Beam Radiation of Lung using Photons 1 - 10 MeV (ICD-10-PCS; 2018-01-21)
PROC: DP0C1ZZ Beam Radiation of Other Bone using Photons 1 - 10 MeV (ICD-10-PCS; 2018-01-21)
PROC: 5A09357 Assistance with Respiratory Ventilation, Less than 24 Consecutive Hours, Continuous Positive Airway Pressure (ICD-10-PCS; 2018-02-01)
DX: C34.11 Malignant neoplasm of upper lobe, right bronchus or lung (principal); J96.91 Respiratory failure, unspecified with hypoxia; J69.0 Pneumonitis due to inhalation of food and vomit; C79.51 Secondary malignant neoplasm of bone; J44.1 Chronic obstructive pulmonary disease with (acute) exacerbation; G95.29 Other cord compression; G82.20 Paraplegia, unspecified; J90 Pleural effusion, not elsewhere classified; E86.0 Dehydration; G35 Multiple sclerosis; G30.9 Alzheimer's disease, unspecified; F02.80 Dementia in other diseases classified elsewhere, unspecified severity, without behavioral disturbance, psychotic disturbance, mood disturbance, and anxiety; D63.8 Anemia in other chronic diseases classified elsewhere; E09.65 Drug or chemical induced diabetes mellitus with hyperglycemia; T38.0X5A Adverse effect of glucocorticoids and synthetic analogues, initial encounter; F41.1 Generalized anxiety disorder; K21.9 Gastro-esophageal reflux disease without esophagitis; M19.90 Unspecified osteoarthritis, unspecified site; N40.0 Benign prostatic hyperplasia without lower urinary tract symptoms; K27.9 Peptic ulcer, site unspecified, unspecified as acute or chronic, without hemorrhage or perforation; Z66 Do not resuscitate; Z87.891 Personal history of nicotine dependence; Z85.46 Personal history of malignant neoplasm of prostate; Z86.73 Personal history of transient ischemic attack (TIA), and cerebral infarction without residual deficits; Z74.01 Bed confinement status